=== PATIENT | female | born 1950 | race Caucasian/White ===

== ENCOUNTER 2024-09-21 15:43 | Emergency (ER) | payer MEDICARE, MEDICAID, SELFPAY ==
--- NOTE | ~2024-09-21 | XR_ITS ---
EXAMINATION: XR CHEST CLINICAL INFORMATION: cough COMPARISON: Chest 05/15/2013 report. TECHNIQUE: 2 views of the chest were obtained. FINDINGS: The lungs are well-expanded and clear acute process. There is platelike atelectasis left lung base. Heart size and pulmonary vascularity is normal. No gross bony abnormality seen. XR/XR chest 2V IMPRESSION: Platelike atelectasis left lung base. Electronically signed by: Aryan Cherry MD 09/21/2024 04:47 PM EST
[2024-09-21 15:50] VITALS: BP 150/85; PULSE 80; O2SAT 96; BMI 65.4
--- NOTE | 2024-09-21 15:54 | ED.PSYCH ---
HPI - Psych General Chief Complaint: Psychiatric Symptoms Stated Complaint: Sec 12 Time Seen by Provider: 09/21/24 15:52 Source: EMS Mode of arrival: EMS Limitations: other History of Present Illness HPI Narrative: 74-year-old female coming from [facility]. she has past medical history per the records of bipolar disorder she has been noncompliant with medications per EMS depression asthma GERD chronic kidney disease CHF on torsemide atrial fibrillation pulmonary hypertension borderline personality disorder hyperthyroidism. Patient is on a section 12 for agitation during this at staff. Patient is calm and cooperative here I have no previous visits from her to our hospital the patient denies chest pain cough fever she states she has been seen at another hospital and she was concerned she had pneumonia diagnosed with bronchitis she continues to have cough MD complaint: feels depressed and other Related Data Allergies Allergy/AdvReac Type Severity Reaction Status Date / Time latex [LATEX] Allergy Unknown RASH Verified 09/21/24 15:50 monosodium glutamate Allergy Unknown BREATHING Verified 09/21/24 15:50 DIFFICULTIES/RASH prednisone [PREDNISONE] Allergy Unknown RASH/HYPER Verified 09/21/24 15:50 ACTIVITY Review of Systems Review of Systems: Review of systems: General: Patient denies any fever chills recent illness or falls Musculoskeletal: Denies back pain or body aches or other injuries HEENT: denies headache, runny nose, ear pain Respiratory: cough denies shortness of breath, Cardiovascular: no chest pain or palpitations : denies dysuria, frequency Abdomen: no nausea vomiting denies abdominal pain Extremities: no swelling, no pain Skin: no diaphoresis Yes all other systems are reviewed and are negative PMFSH Social History Social History Advance Directives: No Advance Directives Information Provided: Yes Do you have a plan to hurt others: No Plan Physical Exam Vital Signs: Vital Signs: Last Vital Signs Temp 98.3 F 09/21/24 16:00 Pulse 71 09/21/24 16:00 Resp 18 09/21/24 16:00 BP 141/63 H 09/21/24 16:00 Pulse Ox 99 09/21/24 16:00 O2 Del Method Room Air 09/21/24 16:00 BMI result Body Mass Index 65.4 General: Well-appearing well-nourished in no signs of distress HEENT: Normocephalic atraumatic Neck: No signs of JVD, no masses no tenderness or lymphadenopathy Cardiovascular: Regular rate and rhythm Respiratory: Clear to auscultation bilaterally Abdomen: Soft nontender no masses Extremities: Normal pedal pulses minimal bilateral edema Skin: Dry warm no rashes Back: No tenderness full ROM Course Reevaluation(s) Reevaluation #1: labs and x-ray are all normal patient is medically cleared for behavioral health Time: 17:26 Medical Decision Making Medical Decision Making [facility] Narrative: I will check labs x-ray including BNP COVID flu RSV to hopefully clear the patient for psychiatric evaluation. Differential Diagnosis Differential Diagnoses: The differential diagnosis associated with the presentation includes acute psychosis pneumonia CHF medication noncompliance Admission/Observation Consideration of admission/observation: Escalation of care including admission/observation considered Consult Healthcare Provider Management of the patient was discussed with: Behavioral Health Provider Lab Data 09/21/24 16:18 09/21/24 16:18 Labs: Lab Results 09/21/24 09/21/24 Range/Units 16:18 16:52 WBC 7.2 (4.8-10.8) X10*3/uL RBC 4.33 (4.20-5.50) X10*6/uL Hgb 13.3 (12.0-16.0) g/dl Hct 41.0 (37.0-47.0) % MCV 94.7 (80.0-98.0) fL MCH 30.7 (27.0-33.0) pg MCHC 32.4 (31.0-35.0) g/dl RDW 13.0 (11.0-16.0) % Plt Count 204 (160-400) X10*3/uL MPV 10.1 (9.4-12.3) fL Immature Gran % (Auto) 1.0 H (0.0-0.4) % Neut % (Auto) 67.5 (45-73) % Lymph % (Auto) 19.6 L (20-40) % [place] % (Auto) 11.2 H (2-11) % Eos % (Auto) 0.0 (0-4) % Baso % (Auto) 0.7 (0-2) % Lymph # (Auto) 1.4 (1.2-4.9) X10*3/uL [place] # (Auto) 0.8 (0.1-1.2) X10*3/uL Eos # (Auto) 0.0 (0.0-0.4) X10*3/uL Baso # (Auto) 0.1 (0.0-0.2) X10*3/uL Abs Immat Gran (auto) 0.07 H (0.00-0.03) X10*3/uL Absolute Neuts (auto) 4.9 (2.0-8.3) x10*3/uL Absolute Nucleated RBC 0.000 (0.0-0.012) X10*3/uL Nucleated RBC % (auto) 0.0 (0.0-0.2) /100WBC Sodium 141 (135-145) mmol/L Potassium 3.3 (3.3-5.1) mmol/L Chloride 107 (96-108) mmol/L Carbon Dioxide 24 (22-29) mmol/L Anion Gap 13 (12-20) BUN 10 (9-16) mg/dL Creatinine 0.72 (0.5-1.4) mg/dL Estim Creat Clear Calc 102.0 Estimated GFR > 60 Random Glucose 88 (60-115) mg/dL Calcium 8.9 (8.4-10.2) mg/dL Magnesium 2.2 (1.6-2.6) mg/dL Total Bilirubin 0.6 (0.0-1.0) mg/dL Direct Bilirubin 0.2 (0.0-0.5) mg/dL AST 25 (5-31) U/L ALT 15 (0-31) U/L Alkaline Phosphatase 74 (39-117) U/L B-Natriuretic Peptide 108 H (<100) pg/mL Total Protein 7.2 (6.5-8.0) g/dL Albumin 3.6 (3.5-5.0) g/dL Lipase 20 (8-78) U/L Hold Yellow Top See Note Salicylates < 5.0 L (15-30) mg/dL Acetaminophen 3 (<30) mcg/mL Ethyl Alcohol < 10 mg/dL Influenza Type A (PCR) NEGATIVE (Negative) Influenza Type B (PCR) NEGATIVE (Negative) RSV RNA Qual (PCR) NEGATIVE (Negative) SARS-CoV-2 RNA (RT-PCR) NEGATIVE (Negative) Discharge Plan Discharge Clinical Impression: Acute psychosis, Bipolar disorder Patient Disposition: Still a Patient Print Language: Burkinan
[2024-09-21 16:00] VITALS: BP 141/63; PULSE 71; RESP 18; TEMP 36.8; O2SAT 99
[2024-09-21 16:23] LABS: MANUAL DIFF FLAG NO
[2024-09-21 16:26] LABS: Basophils Absolute Auto 0.1 X10*3/uL (0.0-0.2); Basophils Percent Auto 0.7 % (0-2); Hemoglobin 13.3 g/dl (12.0-16.0); Imm Gran Abs Auto 0.07 X10*3/uL (0.00-0.03); Lymphocytes Absolute Auto 1.4 X10*3/uL (1.2-4.9); Lymphocytes Percent Auto 19.6 % (20-40); Mean Corpuscular HGB Conc 32.4 g/dl (31.0-35.0); Mean Corpuscular Hemoglobin 30.7 pg (27.0-33.0); Mean Corpuscular Volume 94.7 fL (80.0-98.0); Mean Platelet Volume 10.1 fL (9.4-12.3); Monocytes Absolute Auto 0.8 X10*3/uL (0.1-1.2); Monocytes Percent Auto 11.2 % (2-11); Neutrophils Absolute Auto 4.9 x10*3/uL (2.0-8.3); Neutrophils Percent Auto 67.5 % (45-73); Platelet Count 204 X10*3/uL (160-400); Red Blood Count 4.33 X10*6/uL (4.20-5.50); White Blood Count 7.2 X10*3/uL (4.8-10.8)
[2024-09-21 16:48] LABS: Acetaminophen LAB 3 mcg/mL (<30); Salicylate < 5.0 mg/dL (15-30)
[2024-09-21 16:49] LABS: Alanine Aminotransferase 15 U/L (0-31); Albumin Level 3.6 g/dL (3.5-5.0); Alkaline Phosphatase 74 U/L (39-117); Anion Gap 13 (12-20); Aspartate Amino Transferase 25 U/L (5-31); Bilirubin Direct 0.2 mg/dL (0.0-0.5); Bilirubin Total 0.6 mg/dL (0.0-1.0); Blood Urea Nitrogen 10 mg/dL (9-16); Calcium 8.9 mg/dL (8.4-10.2); Carbon Dioxide 24 mmol/L (22-29); Chloride 107 mmol/L (96-108); Estimated Glomerular Filt Rate > 60; Ethanol < 10 mg/dL; Glucose Random 88 mg/dL (60-115); Lipase 20 U/L (8-78); Magnesium 2.2 mg/dL (1.6-2.6); Potassium 3.3 mmol/L (3.3-5.1); Sodium 141 mmol/L (135-145); Total Protein 7.2 g/dL (6.5-8.0)
[2024-09-21 17:03] LABS: Influenza A PCR NEGATIVE (Negative); Influenza B PCR NEGATIVE (Negative); Resp Syncy Virus RNA Qual PCR NEGATIVE (Negative); SARS COV2 PCR INHOUSE NEGATIVE (Negative)
[2024-09-21 17:22] LABS: B Type Natriuretic Peptide 108 pg/mL (<100)
--- NOTE | 2024-09-21 18:41 | PC.NURSE ---
pt incontinent of urine - pericare performed. bedding changed. new pads applied. urine obtained/sent to lab.
--- OUTSIDE RECORDS SUMMARY | 2024-09-21 18:53 | XMS_ITS | Continuity of Care Document ---
Author Organization [employer] [facility] Address [address] [address] Phone Care Team Providers Care Mortgage Banker Name Role Phone Margy Page NP Unavailable Unavaila ble Allergies, Adverse Reactions, Alerts Substance Reaction Status Criticality strawberry Hives Active No Information prednisone Active No Information celecoxib Hives Active No Information ZOLPIDEM TARTRATE Active No Informa tion WARNIN allergy(ies) could not be collected because the type is not supported. Please contact the source practice for further details. Medications Medication Instructions Dosage Effective Dates (start - stop) Status Comments omeprazole 20 mg tablet,delayed release take 1 tablet qd [facility] - Active menthol 4 % topical cream apply twice a day to bilateral knees [facility] - Active SE supplied - Dynarub potassium chloride ER 10 mEq capsule,extended release Take 2 capsules (20mEq) by mouth once daily. - Active K 3.1 on ; dose increased from 10 to 20mEq. Breo Ellipta 200 mcg-25 mcg/dose powder for inhalation inhale 1 puff by inhalation route every day at the same time each day 1.00 puff - Active AUTO FILL INHALE R MONTHLY losartan 25 mg tablet take 1 tablet by oral route every day 25 MG - Active Ozempic 2 mg/dose (8 mg/3 mL) subcutaneous pen injector Inject 2mg SQ once weekly on the same day. - Active 09/05/23: Dose increase gabapentin 100 mg capsule Take 2 capsules by mouth 3 times daily. - Active Xarelto 15 mg tablet Take 1 tablet daily by mouth with dinner. - Active hydrocortisone 1 % topical cream apply by topical route once daily to lower legs. - Active levothyroxine 75 mcg tablet take 1 tablet PO daily - Active quetiapine ER 150 mg tablet,extended release 24 hr take 2 (two) tablets PO at bedtime with food or a snack - Active QTc 08/05/22 EKG 450 mS amlodipine 2.5 mg tablet take 1 tablet by oral route every day - Active senna 8.6 mg tablet take 2 tablet by oral route every day 17.2 MG - Active [place] [facility] [place] acetaminophen 325 mg tablet PRN FOR BREAKTHROUGH PAIN take 2 tablet by oral route ONCE DAILY; DO NOT EXCEED 8 TABS IN 24 HRS - Active PRN med card; TAKES 6 TABS SCHEDULED DAILY - CAN HAVE 2 ADDITIONAL TABS PRN BREAKTHROUGH DAILY atorvastatin 40 mg tablet take 1 tablet by oral route every day 40 MG - Active per pre enrollment bisacodyl 5 mg tablet,delayed release PRN MED CARD - take 1 tablet by oral route every day as needed for constipation - Active PLS PROVIDE PRN MED CARD THANKS metoprolol tartrate 25 mg tablet take 1 tablet by oral route 2 times every day - Active torsemide 20 mg tablet take 1 tablet by oral route every day - Active DOSE DECREASE BY [facility] 01/2022 Advance Directives Directive Yes / No Effective Date File Name No Information Encounters Encounter Description Practice Location Reason(s) For Visit Diagnoses Date Provider [facility], [facility], [place], [place], [id number], [place] tel:[phone] [facility] No Information 4 Camilo Ji. 1 [facility], [place], [place], [id number], [place]. tel:[phone] [facility], [address] [address], [place], [place], [id number], [place] tel:[phone] [place] Annual (chief complaint) Generalized anxiety disorderBorderline personality disorderBipolar affective disorder in remissionHypertensive heart and kidney disease with heart failure and chronic kidney diseaseChronic heart failure with preserved ejection fractionPulmonary hypertensionCoronary artery disease involving mcgrath coronary artery of mcgrath heart without angina pectorisParoxysmal atrial fibrillationHyperlipi demia, unspecified hyperlipidemia typeSecondary hypercoagulable stateAcquired hypothyroidism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BMI 60.0-69.9, adultGastroesophageal reflux disease without esophagitisChronic kidney disease, stage 2 (mild)Late effect of traumatic injury to brainMild cognitive impairmentCentrilobul ar emphysema 4 Bhagavatula Ujjwala. [address], [place], [place], [id number], [place]. tel:[phone] [facility], [facility] [address] [place] [address], [id number], [place] tel:[phone] [facility] F/U (chief complaint) DebilityStage 3a chronic kidney disease 4 Bhagajuliana Ujjwala. [address], [place], [place], [id number], [place]. tel:[phone] [facility], [address] [facility] [place], [place], [id number], [place] tel:[phone] [facility] Encounter for nutritional assessmentClass 3 severe obesity due to excess calories with serious comorbidity and body mass index (BMI) of 60.0 to 69.9 in adultBody mass index [BMI] 60.0-69.9, adult November- 4 Normile Stephanie. [address] [place], [place], [id number], [place]. tel:[phone] [facility], [address] [facility], [place], [place], [id number], [place] tel:[phone] [facility] Follow-up (chief complaint) Debility 4 Bhagavatula Ujjwala. [address] [place], [place], [id number], [place]. tel:[phone] [facility], [address] [facility] [address], [place], [place], [id number], [place] tel:[phone] [facility] Follow-up (chief complaint) Nausea 4 Bhagavatula Ujjwala. [address] [place], [place], [id number], [place]. tel:[phone] [facility], [address] [facility], [place], [place], [id number], [place] tel:[phone] [facility] Follow-up (chief complaint) HypokalemiaPrimary generalized (osteo)arthritis 4 Pitsiladis Ceci. [address] [place], [place], [id number], [place]. tel:[phone] [facility], [address] [facility], [place], [place], [id number], [place] tel:[phone] [facility] Follow-up (chief complaint) Lymphedema due to venous insufficiencyVenous insufficiency (chronic) (peripheral)Primary generalized (osteo)arthritis 4 Bhagavatula Ujjwala. [address] [place], [place], [id number], [place]. tel:[phone] [facility], [address] [facility], [place], [place], [id number], [place] tel:[phone] [facility] Follow-up (chief complaint) Lymphedema due to venous insufficiencyVenous insufficiency (chronic) (peripheral)Other emphysema Oct-2 - 4 Bhagavatula Ujjwala. [address] [place], [place], [id number], [place]. tel:[phone] [facility], [address] [facility] [address], [place], [place], [id number], [place] tel:[phone] [facility] Follow-up (chief complaint) Lymphedema due to venous insufficiencyVenous insufficiency (chronic) (peripheral)Primary generalized (osteo)arthritisCentr ilobular emphysema Apr- 4 Bhagavatula Ujjwala. [address] [place], [place], [id number], [place]. tel:[phone] [facility], [address] [facility] [address] [place] [address], [id number], [place] tel:[phone] [facility] Follow-up (chief complaint) Lymphedema, not elsewhere classifiedVenous insufficiency (chronic) (peripheral)Primary generalized (osteo)arthritis Oct- 4 Bhagavatula Ujjwala. [address] [place], [id number], [place]. tel:[phone] [facility], [address] [facility] [address] [place] [address], [id number], [place] tel:[phone] [facility] Follow-up (chief complaint) Lymphedema, not elsewhere classifiedVenous insufficiency (chronic) (peripheral)Primary generalized (osteo)arthritis Oct- 4 Bhagavatula Ujjwala. [address] [place], [id number], [place]. tel:[phone] [facility], [address] [facility] [address] [place] [address], [id number], [place] tel:[phone] [facility] Follow-up (chief complaint) Lymphedema due to venous insufficiencyVenous insufficiency (chronic) (peripheral) Oct-0 4 Bhagavatula Ujjwala. [address] [place], [place], [id number], [place]. tel:[phone] [facility], [address] [facility] [address] [place] [address], [id number], [place] tel:[phone] [facility] Follow-up (chief complaint) Generalized anxiety disorderLymphedema due to venous insufficiencyVenous insufficiency (chronic) (peripheral) Sep-2 4 Bhagavatula Ujjwala. [address] [place], [id number], [place]. tel:[phone] [facility], [address] [facility], [place], [place], [id number], [place] tel:[phone] [facility] Follow-up (chief complaint) Lymphedema due to venous insufficiencyVenous insufficiency (chronic) (peripheral)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BMI 60.0-69.9, adult Mar-2 0 4 Juan F Reyezwala. [address] [facility] [place], [id number], [place]. tel:[phone] [facility], [address] [facility], [place], [place], [id number], [place] tel:[phone] [facility] Admit (chief complaint) Primary generalized (osteo)arthritisLymph edema due to venous insufficiency Mar-1 4 Juan F Reyezwala. [address] [facility] [address], [place], [place], [id number], [place]. tel:[phone] [facility], [address] [facility], [place], [place], [id number], [place] tel:[phone] [place] Difficulty in walking, not elsewhere classified Mar-0 4 Baron Jl. [address] [facility], [place], [address]. tel:[phone] [facility], [address] [facility], [place], [place], [id number], [place] tel:[phone] [place] Muscle weakness (generalized)Need for assistance with personal care Mar-0 4 Naila Munoz. [address] [facility] [place], [place], [id number]. tel:[phone] [facility], [address] [facility], [place], [place], [id number], [place] tel:[phone] [place] Alteration in performance of activities of daily livingDifficulty in walking, not elsewhere classifiedImpaired cognitive abilityMuscle weakness (generalized) Mar-0 - 4 Naila Munoz. [address] [place], [place], [id number]. tel:[phone] [facility], [address] [facility], [place], [place], [id number], [place] tel:[phone] [place] Acute Visit (chief complaint) Primary generalized (osteo)arthritisAtria l fibrillation, unspecified typeCoronary artery disease involving mcgrath coronary artery of mcgrath heart, unspecified whether angina present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BMI 60.0-69.9, adult Mar-0 4 Pitsiladis Ceci. [address], [place], [place], [id number], [place]. tel:[phone] [facility], [address] [facility], [place], [place], [id number], [place] tel:[phone] [facility] [place] No Information Feb-2 4 Pitsiladis Ceci. [address], [place], [place], [id number], [place]. tel:[phone] [facility], [address] [facility], [place], [place], [id number], [place] tel:[phone] [place] Difficulty in walking, not elsewhere classifiedAlteration in performance of activities of daily livingMild cognitive impairment, so statedOther lack of coordination b-2 4 Naila Munoz. [address] [place], [place], [id number]. tel:[phone] [facility], [address] [facility], [place], [place], [id number], [place] tel:[phone] [place] Follow-up (chief complaint) BMI 60.0-69.9, adultHistory of UTI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 Feb-1 4 Pitsiladis Ceci. [address], [place], [place], [id number], [place]. tel:[phone] [facility], [address] [facility], [place], [place], [id number], [place] tel:[phone] [place] Encounter for rehabilitation evaluation 4 Naila Munoz. [address] [place], [place], [id number]. tel:[phone] [facility], [address], [place], [place], [id number], [place] tel:[phone] [place] Alteration in performance of activities of daily livingDifficulty in walking, not elsewhere classifiedOther lack of coordination 0 4 Naila Munoz. [address] [place], [place], [id number]. tel:[phone] [facility], [address] [facility], [place], [place], [id number], [place] tel:[phone] [place] Alteration in performance of activities of daily livingDifficulty in walking, not elsewhere classifiedMild cognitive impairment, so statedOther lack of coordination 0 4 Naila Munoz. [address] [place], [place], [id number]. tel:[phone] [facility], [address] [facility], [place], [place], [id number], [place] tel:[phone] [place] Alteration in performance of activities of daily livingDifficulty in walking, not elsewhere classifiedOther lack of coordination 4 Naila Munoz. [address] [place], [place], [id number]. tel:[phone] [facility], [address] [facility], [place], [place], [id number], [place] tel:[phone] [place] Encounter for rehabilitation evaluation 4 Baron Parikh. [address], [place], [address]. tel:[phone] [facility], [address] [facility], [place], [place], [id number], [place] tel:[phone] [place] Difficulty in walking, not elsewhere classifiedAlteration in performance of activities of daily livingOther lack of coordination 4 Naila Martinezah Beth. [address] [place], [place], [id number]. tel:[phone] [facility], [address] [facility] [address], [place], [place], [id number], [place] tel:[phone] [place] Difficulty in walking, not elsewhere classifiedAlteration in performance of activities of daily livingOther chronic pain 4 Naila Martinezah Beth. [address] [place], [place], [id number]. tel:[phone] [facility], [address] [facility], [place], [place], [id number], [place] tel:[phone] [place] Difficulty in walking, not elsewhere classifiedAlteration in performance of activities of daily livingEncounter for rehabilitation evaluation 4 Naila Martinezah Beth. [address] [place], [place], [id number]. tel:[phone] [facility], [address] [facility] [address], [place], [place], [id number], [place] tel:[phone] [facility] Evaluation (chief complaint) 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BMI 60.0-69.9, adultChronic obstructive pulmonary disease, unspecified COPD typeChronic heart failure with preserved ejection fractionBipolar affective disorder, remission status unspecifiedBorderline personality disorder 4 Margot Ornelas. [address], [place], [place], [id number], [place]. tel:[phone] [facility], [address] [facility], [place], [place], [id number], [place] tel:[phone] [facility] [place] No Information 4 Devante Almanza. [address], [place], [place], [id number], [place]. tel:[phone] [facility], [address] [facility], [place], [place], [id number], [place] tel:[phone] [place] Difficulty in walking, not elsewhere classifiedAlteration in performance of activities of daily livingOther lack of coordination 4 Naila Tenorio Beth. [address], [place], [place], [id number]. tel:[phone] [facility], [address] [facility] [address], [place], [place], [id number], [place] tel:[phone] [place] Difficulty in walking, not elsewhere classifiedMild cognitive impairment, so statedNeed for assistance with personal careOther lack of coordination 4 Hetalbenjamin Lauren MartinezShannan. [address] [place], [place], [id number]. tel:[phone] [facility], [address] [facility], [place], [place], [id number], [place] tel:[phone] [place] Difficulty in walking, not elsewhere classifiedOther lack of coordinationPrimary generalized (osteo)arthritisNeed for assistance with personal care 4 Naila Prettyn Shannan. [address] [place], [place], [id number]. tel:[phone] [facility], [address] [facility], [place], [place], [id number], [place] tel:[phone] [place] Alteration in performance of activities of daily livingDifficulty in walking, not elsewhere classifiedUnsteadines s on feetOther chronic pain 4 Naila Tenorio Beth. [address] [place], [place], [address]. tel:[phone] [facility], [address] [facility], [id number], [place] tel:[phone] [place] Alteration in performance of activities of daily livingDifficulty in walking, not elsewhere classifiedImpaired cognitive abilityOther chronic pain 3 Naila Aguilar Shannan. [address] [place], [place], [id number]. tel:[phone] [facility], [address], [place], [place], [id number], [place] tel:[phone] [place] Difficulty in walking, not elsewhere classified 3 Baron Jl. [address] [facility] [address], [place], [address]. tel:[phone] [facility], [address], [place], [place], [id number], [place] tel:[phone] [place] Difficulty in walking, not elsewhere classifiedAlteration in performance of activities of daily livingOther chronic painUnsteadiness on feet 3 Naila Martinezah Beth. [address] [facility] [address] [place], [place], [id number]. tel:[phone] [facility], [address], [place], [place], [id number], [place] tel:[phone] [place] Encounter for nutritional assessmentAbnormal weight gainClass 3 severe obesity with serious comorbidity and body mass index (BMI) of 60.0 to 69.9 in adult, unspecified obesity typeBody mass index [BMI] 60.0-69.9, adultCounseling NOS 3 Normile Stephanie. [address], [place], [place], [id number], [place]. tel:[phone] [facility], [address], [place], [place], [id number], [place] tel:[phone] [place] Lymphedema, not elsewhere classified 3 Pitsiladis Ceci. [address], [place], [place], [id number], [place]. tel:[phone] [facility], [address], [place], [place], [id number], [place] tel:[phone] [place] Follow-up (chief complaint) Cellulitis of lower extremity, unspecified lateralityLymphedema due to venous insufficiencyVenous insufficiency (chronic) (peripheral) Jun- 3 Pitsiladis Ceci. [address] [place], [place], [id number], [place]. tel:[phone] [facility], [address] [facility] [address], [place], [place], [id number], [place] tel:[phone] [place] Cellulitis of lower extremity, unspecified lateralityLymphedema due to venous insufficiencyVenous insufficiency (chronic) (peripheral) Jun- 3 Pitsiladis Ceci. [address], [place], [place], [id number], [place]. tel:[phone] [facility], [address] [facility], [place], [place], [id number], [place] tel:[phone] [place] Difficulty in walking, not elsewhere classifiedAlteration in performance of activities of daily livingMild cognitive impairment, so statedMuscle weakness (generalized) Jun- 3 Naila Munoz. [address] [place], [place], [address]. tel:[phone] [facility], [address] [facility], [place], [place], [id number], [place] tel:[phone] [place] No Information Jun- 3 Pitsiladis Ceci. [address], [place], [place], [id number], [place]. tel:[phone] [facility], [address] [facility] [address], [place], [place], [id number], [place] tel:[phone] Lymphedema due to venous insufficiencyVenous insufficiency (chronic) (peripheral) Jun- 3 Camilo Ji. [address] [facility] , [place], [place], [id number], [place]. tel:[phone] [facility], [address] [facility] [facility], [place], [place], [id number], tel:[phone] [place] Semi-Annual (chief complaint) Generalized anxiety disorderBorderline personality disorderBipolar affective disorder, remission status unspecifiedHypertensi ve heart and kidney disease with heart failure and chronic kidney diseaseChronic heart failure with preserved ejection fractionPulmonary hypertensionCoronary artery disease involving mcgrath coronary artery of mcgrath heart, unspecified whether angina presentAtrial fibrillation, unspecified typeHyperlipidemia, unspecified hyperlipidemia typeSecondary hypercoagulable stateHypothyroidism, unspecified typeBMI 60.0-69.9, adultGastroesophageal reflux disease without esophagitisStage 3a chronic kidney diseaseLate effect of traumatic injury to brainChronic obstructive pulmonary disease, unspecified COPD type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Cellul itis of lower extremity, unspecified laterality 3 Pitsiladis Ceci. [address], [place], [place], [id number], [place]. tel:[phone] [facility], [facility], [place], [place], [id number], [place] tel:[phone] [place] Alteration in performance of activities of daily livingDifficulty in walking, not elsewhere classifiedMild cognitive impairment, so statedOther chronic pain 3 Naila Munoz. [address] [place], [place], [id number]. tel:[phone] [facility], [address] [facility] [address], [place], [place], [id number], [place] tel:[phone] [place] Alteration in performance of activities of daily livingDifficulty in walking, not elsewhere classifiedMild cognitive impairment, so statedPrimary generalized (osteo)arthritisOther lack of coordination 3 Naila Munzo[address] [place], [place], [id number]. tel:[phone] [facility], [address] [facility] [address], [place], [place], [id number], [place] tel:[phone] [place] Acute Visit (chief complaint) Cellulitis of lower extremity, unspecified laterality 3 Pitsiladis Ceci. [address], [place], [place], [id number], [place]. tel:[phone] [facility], [address], [place], [place], [id number], [place] tel:[phone] [place] Encounter for rehabilitation evaluation 3 Baron Jl. [address], [place], [address]. tel:[phone] [facility], [address] [facility] [address], [place], [place], [id number], [place] tel:[phone] [place] Encounter for rehabilitation evaluation 3 Naila Munoz. [address] [facility] [place], [place], [id number]. tel:[phone] [facility], [address], [place], [place], [id number], [place] tel:[phone] [place] Cellulitis of left lower extremity 3 Pitsiladis Ceci. [address], [place], [place], [id number], [place]. tel:[phone] [facility], [address] [facility] [address], [place], [place], [id number], [place] tel:[phone] [place] No Information 3 Bhagadanyula Neoa. [address], [place], [place], [id number], [place]. tel:[phone] [facility], [address], [place], [place], [id number], [place] tel:[phone] [place] Encounter for rehabilitation evaluation 3 Baron Jl. [address], [place], [address]. tel:[phone] [facility], [address], [place], [place], [id number], [place] tel:[phone] [place] No Information 0 3 Obdulio Noland. [address] [place], [place], [id number], [place]. tel:[phone] [facility], [address], [place], [place], [id number], [place] tel:[phone] [place] Carpal tunnel syndrome of right wrist Nov-0 3 Austin Dutch. [address] [place], [place], [id number], [place]. tel:[phone] [facility], [address], [place], [place], [id number], [place] tel:[phone] [place] Carpal tunnel syndrome of right wrist May-0 3 Austin Dutch. [address], [place], [id number], [place]. 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 [address], [place], [id number], [place]. tel:[phone] [facility], [address] [facility] [address] [facility], [place], [place], [id number], [place] tel:[phone] [place] No Information 3 Juan F Larsona. [address], [place], [id number], [place]. 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 [address] [place], [place], [id number], [place]. tel:[phone] [facility], [address] [facility] [address] [place] [address], [id number], [place] tel:[phone] [place] OV (chief complaint) Cold intoleranceJoint pain in fingers of right handExcessive cerumen in left ear canalFungal dermatitisBMI 60.0-69.9, adult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Histor y of postmenopausal bleeding Sep-1 3 Austin Dutch. [address], [place], [id number], [place]. tel:[phone] [facility], [address] [facility] [address] [facility], [place], [place], [id number], [place] tel:[phone] [place] No Information Sep-0 3 Correa Rut. [address], [place], [id number], [place]. tel:[phone] [facility], [address] [facility], [place], [place], [id number], [place] tel:[phone] [place] Lymphedema due to venous insufficiencyVenous insufficiency (chronic) (peripheral) Sep-0 3 Austin Dutch. [address] [place], [place], [id number], [place]. tel:[phone] [facility], [address] [facility] [address] [facility], [place], [place], [id number], [place] tel:[phone] [place] No Information Sep-0 3 Austin Dutch. [address], [place], [id number], [place]. tel:[phone] [facility], [address] [place] [address], [id number], [place] tel:[phone] [place] Hypertensive heart and kidney disease with heart failure and chronic kidney disease Miguel Angel- 3 Cysz Rajwinder. [address], [place], [id number], [place]. tel:[phone] [facility], [address], [place], [place], [id number], [place] tel:[phone] [place] Off site post SNF visit (chief complaint) Hypertensive heart and kidney disease with heart failure and chronic kidney diseaseChronic heart failure with preserved ejection fractionStage 3a chronic kidney diseaseHistory of cellulitisBorderline personality disorderNormocytic anemiaHistory of evacuation of hematoma 3 Cysz Rajwinder. [address] [facility] [place], [id number], [place]. tel:[phone] [facility], [address], [place], [place], [id number], [place] tel:[phone] [place] No Information 3 Cysz Rajwinder. [address] [facility] [address], [place], [place], [id number], [place]. tel:[phone] [facility], [address], [place], [place], [id number], [place] tel:[phone] [place] Encounter for rehabilitation evaluation 3 Naila Munoz. 101 [facility] [address] [place], [place], [id number]. tel:[phone] [facility], [address], [place], [place], [id number], [place] tel:[phone] [place] Contusion of right lower leg, initial encounter 3 Cysz Rajwinder. [address] [facility] [place], [id number], [place]. tel:[phone] [facility], [address], [place], [place], [id number], [place] tel:[phone] [place] Muscle weakness (generalized) 3 Baron Jl. [address] [facility] [address], [place], [address]. tel:[phone] [facility], [address], [place], [place], [id number], [place] tel:[phone] [place] Encounter for nutritional assessmentOther obesityMorbid (severe) obesity due to excess calories 3 Normile Stephanie. [address], [place], [id number], [place]. tel:[phone] [facility], [facility], [place], [place], [id number], tel:[phone] [place] Semi-Annual (chief complaint)Pa rt 2 (chief complaint) Injury of right knee, initial encounterHistory of cellulitisNonadherenc e to medical treatmentGeneralized anxiety disorderBorderline personality disorderBipolar disorder, current episode mixed, moderateHypertensive heart and kidney disease with heart failure and chronic kidney diseaseChronic heart failure with preserved ejection fractionPulmonary hypertensionCoronary artery disease involving mcgrath coronary artery of mcgrath heart without angina pectorisParoxysmal atrial fibrillationSecondary hypercoagulable stateHyperlipidemia, unspecified hyperlipidemia typeHypothyroidism, unspecified type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BMI 60.0-69.9, adultStage 3a chronic kidney diseaseHistory of postmenopausal bleedingLate effect of traumatic injury to brainChronic obstructive pulmonary disease, unspecified COPD typeLymphedema due to venous insufficiencyVenous insufficiency (chronic) (peripheral) 3 Cysz Rajwinder. [address] [facility] [place], [id number], [place]. tel:[phone] [facility], [address] [address], [place], [place], [id number], [place] tel:[phone] [place] Muscle weakness (generalized) 3 Puffer Lauren Munoz. [address] [facility] [address], [place], [place], [id number]. tel:[phone] [facility], [facility], [place], [place], [id number], [place] tel:[phone] [place] Muscle weakness (generalized) 3 Puffer Lauren Tenorio Beth. [address] [place], [place], [id number]. tel:[phone] [facility], [address] [facility] [facility], [place], [place], [id number], [place] tel:[phone] [place] Muscle weakness (generalized) 3 Naila Munoz. [address] [place], [place], [id number]. tel:[phone] [facility], [address] [facility] [facility], [place], [place], [id number], [place] tel:[phone] [place] Muscle weakness (generalized) 3 Pubenjamin Tenorio Beth. [address] [facility] [address] [place], [place], [id number]. tel:[phone] [facility], [address] [facility] [address] [facility], [place], [place], [id number], [place] tel:[phone] [place] Muscle weakness (generalized) 3 Pubenjamin Tenorio Beth. [address] [facility] [address] [place], [place], [id number]. tel:[phone] [facility], [address] [facility] [address] [facility], [place], [place], [id number], [place] tel:[phone] [place] Muscle weakness (generalized) 0 3 Naila Tenorio Beth. [address] [facility] [address] [place], [place], [id number]. tel:[phone] [facility], [address] [facility] [address] [facility], [place], [place], [id number], [place] tel:[phone] [place] Difficulty in walking, not elsewhere classified Apr-2 3 Baron Jl. [address], [place], [address]. tel:[phone] [facility], [address] [facility] [address], [place], [place], [id number], [place] tel:[phone] [place] Alteration in performance of activities of daily livingDifficulty in walking, not elsewhere classifiedMild cognitive impairment, so stated Apr-2 3 Naila Munoz. [address] [place], [place], [address]. tel:[phone] [facility], [address] [facility] [address] [facility], [place], [place], [id number], [place] tel:[phone] [place] Difficulty in walking, not elsewhere classifiedMuscle weakness (generalized) Apr-2 3 Baron Jl. [address], [place], [address]. tel:[phone] [facility], [address] [facility] [address] [facility], [place], [place], [id number], [place] tel:[phone] [place] Muscle weakness (generalized) Apr-2 3 Naila Munoz. [address] [facility] [address] [place], [place], [address]. tel:[phone] [facility], [address] [facility] [facility], [place], [place], [id number], [place] tel:[phone] [place] Muscle weakness (generalized)Difficul ty in walking, not elsewhere classified Apr-2 3 Baron Jl. [address], [place], [address]. tel:[phone] [facility], [address] [facility] [address] [facility], [place], [place], [id number], [place] tel:[phone] [place] Alteration in performance of activities of daily livingDifficulty in walking, not elsewhere classified Apr-2 0- 3 Naila Cisnerosh. [address] [place], [place], [id number]. tel:[phone] [facility], [address] [facility] [facility], [place], [place], [id number], [place] tel:[phone] [place] Muscle weakness (generalized) Apr-2 0- 3 Naila Cisnerosh. [address] [place], [place], [id number]. tel:[phone] [facility], [address], [place], [place], [address], [place] tel:[phone] [place] Muscle weakness (generalized) Apr- 3 Naila Munoz. [address] [place], [place], [address]. tel:[phone] [facility], [address], [place], [place], [id number], [place] tel:[phone] [place] Muscle weakness (generalized)Other abnormalities of gait and mobility Apr- 3 Baron Jl. [address], [place], [address]. tel:[phone] [facility], [address], [place], [place], [id number], [place] tel:[phone] [place] Muscle weakness (generalized) Apr- 3 Naila Munoz. [address] [place], [place], [address]. tel:[phone] [facility], [address], [place], [place], [id number], [place] tel:[phone] [place] Muscle weakness (generalized)Other abnormalities of gait and mobility Apr- 3 Baron Jl. [address], [place], [address]. tel:[phone] [facility], [address], [place], [place], [id number], [place] tel:[phone] [place] Muscle weakness (generalized) Apr- 3 Naila Munoz. [address] [place], [place], [address]. tel:[phone] [facility], [address], [place], [place], [id number], [place] tel:[phone] [place] Muscle weakness (generalized)Other abnormalities of gait and mobility Apr-1 0-202 3 Baron Jl. [address], [place], [address]. tel:[phone] [facility], [address] [facility] [address] [facility], [place], [place], [id number], [place] tel:[phone] [place] Muscle weakness (generalized) Apr-0 6-202 3 Naila Munoz. [address] [place], [place], [address]. tel:[phone] [facility], [address] [facility] [address] [facility], [place], [place], [address], [place] tel:[phone] [place] Other abnormalities of gait and mobilityMuscle weakness (generalized) Apr-0 6-202 3 Baron Jl. [address], [place], [address]. tel:[phone] [facility], [address] [facility] [address], [place], [place], [address], [place] tel:[phone] [place] Muscle weakness (generalized) Apr-0 4-202 3 Pubenjamin Munoz. [address] [place], [place], [id number]. tel:[phone] [facility], [address] [facility] [facility], [place], [place], [address], [place] tel:[phone] [place] Other abnormalities of gait and mobilityMuscle weakness (generalized) Apr-0 4-202 3 Baron Jl. [address], [place], [address]. tel:[phone] [facility], [address] [facility] [address] [facility], [place], [place], [id number], [place] tel:[phone] [place] Muscle weakness (generalized)Difficul ty in walking, not elsewhere classifiedOther chronic painEncounter for rehabilitation evaluation Apr-0 3-202 3 Naila Munoz. [address] [place], [place], [address]. tel:[phone] [facility], [address], [place], [place], [address], [place] tel:[phone] [place] Other abnormalities of gait and mobility Mar-3 3 Baron Jl. [address], [place], [address]. tel:[phone] [facility], [address], [place], [place], [id number], [place] tel:[phone] [place] Muscle weakness (generalized) Mar-3 0- 3 Puffer Lauren Tenorio Beth. [address] [place], [place], [address]. tel:[phone] [facility], [address] [facility] [facility], [place], [place], [address], [place] tel:[phone] [place] Muscle weakness (generalized) Mar-2 3 Baron Jl. [address], [place], [address]. tel:[phone] [facility], [address] [facility] [address] [facility], [place], [place], [id number], [place] tel:[phone] [place] Muscle weakness (generalized) Mar-2 3 Puffer Lauren Shannan. [address] [place], [place], [address]. tel:[phone] [facility], [address] [facility] [address] [facility], [place], [place], [address], [place] tel:[phone] [place] Muscle weakness (generalized) Mar-2 3 Puffer Lauren Shannan. [address] [place], [place], [address]. tel:[phone] [facility], [address], [place], [place], [address], [place] tel:[phone] [place] Other abnormalities of gait and mobilityMuscle weakness (generalized) Mar-2 3 Baron Jl. [address], [place], [address]. tel:[phone] [facility], [address], [place], [place], [address], [place] tel:[phone] [place] Muscle weakness (generalized) Sep-2 3 Naila Munoz. [address] [place], [place], [address]. tel:[phone] [facility], [address], [place], [place], [id number], [place] tel:[phone] [place] Muscle weakness (generalized)Other abnormalities of gait and mobility Sep-2 3 Baron Jl. [address], [place], [address]. tel:[phone] [facility], [address], [place], [place], [id number], [place] tel:[phone] [place] Chronic heart failur e with preserved ejection fraction Sep- 3 Sidney Purdy. [address] [place] [place], [address], [place]. tel:[phone] [facility], [address] [facility] [facility], [place], [place], [id number], [place] tel:[phone] [place] Muscle weakness (generalized)Alterati on in performance of activities of daily living Sep- 3 Naila Munoz. [address] [place], [place], [address]. tel:[phone] [facility], [address], [place], [place], [address], [place] tel:[phone] [place] Muscle weakness (generalized) Sep- 3 Baron Jl. [address], [place], [address]. tel:[phone] [facility], [address] [facility] [address], [place], [place], [address], [place] tel:[phone] [place] Muscle weakness (generalized) Sep- 3 Baron Jl. [address], [place], [address]. tel:[phone] [facility], [address] [facility] [facility], [place], [place], [address], [place] tel:[phone] [place] Lymphedema due to venous insufficiencyVenous insufficiency (chronic) (peripheral) Mar-1 3 Cysz Rajwinder. [address] [facility] [place], [address], [place]. tel:[phone] [facility], [address] [facility] [address] [facility], [place], [place], [id number], [place] tel:[phone] [place] Difficulty in walking, not elsewhere classified Mar-1 0- 3 Baron Jl. [address], [place], [address]. tel:[phone] [facility], [address] [facility] [address] [facility], [place], [place], [id number], [place] tel:[phone] [place] Difficulty in walking, not elsewhere classifiedMuscle weakness (generalized)Alterati on in performance of activities of daily living Mar-0 3 Naila Munoz. 101 [facility] [address] [place], [place], [id number]. tel:[phone] [facility], [address] [facility] [address] [facility], [place], [place], [address], [place] tel:[phone] [place] Muscle weakness (generalized) Mar-0 3 Baron Jl. [address], [place], [address]. tel:[phone] [facility], [address] [facility] [address] [facility], [place], [place], [id number], [place] tel:[phone] [place] Muscle weakness (generalized) Mar-0 8 3 Baron Jl. [address], [place], [address]. tel:[phone] [facility], [address], [place], [place], [address], [place] tel:[phone] [place] Muscle weakness (generalized) Mar-0 6- 3 Baron Jl. [address] [facility] [address], [place], [address]. tel:[phone] [facility], [address] [facility] [address] [facility], [place], [place], [address], [place] tel:[phone] [place] Muscle weakness (generalized) Mar-0 2- 3 Puffer Lauren Tenorio Beth. [address] [facility] [address] [place], [place], [address]. tel:[phone] [facility], [address] [facility], [place], [place], [address], [place] tel:[phone] [place] Muscle weakness (generalized) b-2 3 Baron Jl. [address] [facility] [address], [place], [address]. tel:[phone] [facility], [address] [facility], [place], [place], [address], [place] tel:[phone] [place] Sensorineural hearin g loss (SNHL) of both earsJoint pain in fingers of right hand Aug- 3 Cysz Rajwinder. [address] [facility] [address], [place], [place], [id number], [place]. tel:[phone] [facility], [address] [facility], [place], [place], [address], [place] tel:[phone] [place] Alteration in performance of activities of daily livingMuscle weakness (generalized) b-2 3 Hetalffer Lauren Tenorio Beth. [address] [facility] [address] [place], [place], [address]. tel:[phone] [facility], [address] [facility] [address] [facility], [place], [place], [id number], [place] tel:[phone] [place] Difficulty in walking, not elsewhere classifiedPrimary generalized (osteo)arthritisMuscl e weakness (generalized) b-2 3 Naila Munoz. [address], [place], [place], [address]. tel:[phone] [facility], [address] [facility], [place], [place], [id number], [place] tel:[phone] [place] Difficulty in walking, not elsewhere classified Aug- 3 Baron Parikh. [address], [place], [address]. tel:[phone] [facility], [address] [facility] [address], [place], [place], [address], [place] tel:[phone] [place] skin concern (chief complaint) 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BMI 60.0-69.9, adultLymphedema due to venous insufficiencyVenous insufficiency (chronic) (peripheral)History of cellulitis Aug- 3 Sidney Purdy. [address], [place], [place], [id number], [place]. tel:[phone] [facility], [address] [facility] [address], [place], [place], [address], [place] tel:[phone] [place] Alteration in performance of activities of daily livingDifficulty in walking, not elsewhere classifiedOther lack of coordination Aug- 3 Naila Munoz. [address] [place], [place], [address]. tel:[phone] [facility], [address] [facility] [facility], [place], [place], [address], [place] tel:[phone] [place] Alteration in performance of activities of daily livingMuscle weakness (generalized) 3 Naila Munoz. [address] [place], [place], [address]. tel:[phone] [facility], [address] [facility] [address], [place], [place], [id number], [place] tel:[phone] [place] Hemiplegia and hemiparesis following unspecified cerebrovascular disease affecting left non-dominant sideMuscle weakness (generalized) b-2 3 Baron Jl. [address], [place], [address]. tel:[phone] [facility], [address] [facility] [address] [facility], [place], [place], [id number], [place] tel:[phone] [place] Alteration in performance of activities of daily living Aug- 3 Naila Munoz. [address] [place], [place], [address]. tel:[phone] [facility], [address] [facility] [address] [facility], [place], [place], [address], [place] tel:[phone] [place] Lymphedema due to venous insufficiencyVenous insufficiency (chronic) (peripheral) Aug- 3 Cysz Rajwinder. [address] [facility] [address], [place], [place], [id number], [place]. tel:[phone] [facility], [address] [facility] [address] [facility], [place], [place], [id number], [place] tel:[phone] [place] Muscle weakness (generalized) Aug- 3 Naila Munoz. [address] [place], [place], [address]. tel:[phone] [facility], [address] [facility] [address] [facility], [place], [place], [id number], [place] tel:[phone] [place] Alteration in performance of activities of daily livingDifficulty in walking, not elsewhere classifiedMuscle weakness (generalized) b- 3 Naila Munoz. [address] [place], [place], [address]. tel:[phone] [facility], [address] [facility] [address] [facility], [place], [place], [id number], [place] tel:[phone] [place] Muscle weakness (generalized) b- 3 Baron Jl. [address], [place], [address]. tel:[phone] [facility], [address], [place], [place], [id number], [place] tel:[phone] [place] Muscle weakness (generalized)Alterati on in performance of activities of daily living Feb-0 3 Naila Munoz. [address] [place], [place], [address]. tel:[phone] [facility], [address] [facility], [place], [place], [id number], [place] tel:[phone] [place] Encounter for genera l adult medical examination w/o abnormal findings Feb-0 3 Cystrisha Purdy. [address] [facility] [address], [place], [place], [id number], [place]. tel:[phone] [facility], [address] [facility] [address] [facility], [place], [place], [id number], [place] tel:[phone] [place] Muscle weakness (generalized)Alterati on in performance of activities of daily living Feb-0 3 Naila Munoz. [address] [facility] [address] [place], [place], [id number]. tel:[phone] [facility], [address] [facility], [place], [place], [id number], [place] tel:[phone] [place] Encounter for nutritional assessmentMorbid (severe) obesity due to excess calories Feb-0 3 Normile Stephanie. [address] [place], [id number], [place]. tel:[phone] [facility], [address] [facility], [place], [place], [id number], [place] tel:[phone] [place] Difficulty in walking, not elsewhere classified Feb-0 3 Baron Jl. [address] [facility] [address], [place], [address]. tel:[phone] [facility], [address] [facility], [place], [place], [id number], [place] tel:[phone] [place] Muscle weakness (generalized) 0 3 Baron Parikh. [address], [place], [address]. tel:[phone] [facility], [address] [facility], [place], [place], [id number], [place] tel:[phone] [place] Alteration in performance of activities of daily livingEncounter for rehabilitation evaluationMuscle weakness (generalized)Other lack of coordination 3 Naila Munoz. [address] [place], [place], [id number]. tel:[phone] [facility], [facility], [place], [place], [id number], [place] tel:[phone] [place] Encounter for rehabilitation evaluationDifficulty in walking, not elsewhere classified 3 Baron Parikh. [address], [place], [address]. tel:[phone] [facility], [facility], [place], [place], [id number], [place] tel:[phone] [place] [facility] (chief complaint) 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BMI 60.0-69.9, adultLymphedema due to venous insufficiencyVenous insufficiency (chronic) (peripheral)Generaliz ed anxiety disorderHypertensive heart and kidney disease with heart failure and chronic kidney diseaseChronic heart failure with preserved ejection fractionAge-related cataract of both eyes, unspecified age-related cataract typeStage 3a chronic kidney disease 3 Cysz Rajwidner. [address] [place], [id number], [place]. tel:[phone] [facility], [address] [facility], [place], [place], [id number], [place] tel:[phone] [place] Muscle weakness (generalized) 3 Naila Cisnerosh. [address] [place], [place], [address]. tel:[phone] [facility], [address], [place], [place], [id number], [place] tel:[phone] [place] Muscle weakness (generalized) 3 Puffer Lauren Munoz. [address] [place], [place], [address]. tel:[phone] [facility], [address], [place], [place], [id number], [place] tel:[phone] [place] Chronic heart failur e with preserved ejection fraction 3 Cysz Rajwinder. [address] [facility] [address], [place], [place], [id number], [place]. tel:[phone] [facility], [address], [place], [place], [id number], [place] tel:[phone] [place] Muscle weakness (generalized) 3 Puffer Lauren Tenorio Beth. [address] [place], [place], [id number]. tel:[phone] [facility], [address], [place], [place], [id number], [place] tel:[phone] [place] Encounter for rehabilitation evaluationAlteration in performance of activities of daily livingDifficulty in walking, not elsewhere classified 2 Pubenjamin Munoz. [address] [place], [place], [id number]. tel:[phone] [facility], [address], [place], [place], [id number], [place] tel:[phone] [place] respiratory symptoms - home visit (chief complaint) Influenza A 2 Cysz Rajwinder. [address], [place], [place], [id number], [place]. tel:[phone] [facility], [address], [place], [place], [id number], [place] tel:[phone] [place] Encounter for weight management Jun- 2 Obdulio Francesca. [address] [facility], [place], [place], [id number], [place]. tel:[phone] [facility], [address] [facility] [address], [place], [place], [id number], [place] tel:[phone] [place] Muscle weakness (generalized) Dec- 2 Puffer Lauren Tenorio Beth. [address] [place], [place], [id number]. tel:[phone] [facility], [facility], [place], [place], [id number], [place] tel:[phone] [place] Encounter for genera l adult medical examination w/o abnormal findings Jun- 2 Cysz Rajwinder. [address] [facility], [place], [place], [id number], [place]. tel:[phone] [facility], [address] [facility], [place], [place], [id number], [place] tel:[phone] [place] Muscle weakness (generalized) 2 Puffer Lauren Shannan. [address] [place], [place], [id number]. tel:[phone] [facility], [address] [facility], [place], [place], [id number], [place] tel:[phone] [place] Muscle weakness (generalized) Jun- 2 Puffer Lauren Shannan. [address] [place], [place], [address]. tel:[phone] [facility], [address] [facility] [address], [place], [place], [id number], [place] tel:[phone] [place] Muscle weakness (generalized) Jun- 2 Puffer Lauren Shannan. [address] [place], [place], [address]. tel:[phone] [facility], [address] [facility] [address], [place], [place], [id number], [place] tel:[phone] [place] Encounter for nutritional assessmentMorbid (severe) obesity due to excess calories 2 Normile Stephanie. [address] [facility] [place], [id number], [place]. tel:[phone] [facility], [address] [facility] [address], [place], [place], [id number], [place] tel:[phone] [place] ÁNGELA (chief complaint) Generalized anxiety disorderBorderline personality disorderBipolar disorder in partial remission, most recent episode unspecified typeHypertensive heart and chronic kidney disease with heart failure and stage 1 through stage 4 chronic kidney disease, or unspecified chronic kidney diseaseChronic heart failure with preserved ejection fractionPulmonary hypertensionCoronary artery disease involving mcgrath coronary artery of mcgrath heart without angina pectorisParoxysmal atrial fibrillationChronic anticoagulationSecond sourav hypercoagulable stateMorbid (severe) obesity with alveolar hypoventilationBMI 60.0-69.9, adultHypothyroidism, unspecified typeVitamin B12 deficiencyGastroesoph ageal reflux disease, unspecified whether esophagitis presentStage 3a chronic kidney diseaseMild cognitive impairmentLate effect of traumatic injury to brainLymphedema due to venous insufficiencyVenous insufficiency (chronic) (peripheral)Chronic obstructive pulmonary disease, unspecified COPD typeEncounter for general adult medical examination w/o abnormal findings 2 Cysz Rajwinder. [address], [place], [place], [id number], [place]. tel:[phone] [facility], [address] [facility], [place], [place], [id number], [place] tel:[phone] [place] Muscle weakness (generalized) 2 Puffer Lauren Shannan. 101 [facility] [address] [place], [place], [address]. tel:[phone] [facility], [address] [facility] [address], [place], [place], [id number], [place] tel:[phone] [place] Difficulty in walking, not elsewhere classifiedAlteration in performance of activities of daily livingOther lack of coordination 0 2 Hetalbenjamin Lauren MartinezShannan. [address] , [place], [place], [address]. tel:[phone] [facility], [address], [place], [place], [id number], [place] tel:[phone] [place] Muscle weakness (generalized) Dec-0 2 Puffer Lauren MartinezShannan. [address] [place], [place], [address]. tel:[phone] [facility], [address] [facility], [place], [place], [address], [place] tel:[phone] [place] Muscle weakness (generalized) 2 Naila Cisnerosh. [address] [place], [place], [address]. tel:[phone] [facility], [address] [facility] [address], [place], [place], [address], [place] tel:[phone] [place] OV (chief complaint) Lymphedema due to venous insufficiencyVenous insufficiency (chronic) (peripheral) 2 Obdulio Noland. [address], [place], [place], [id number], [place]. tel:[phone] [facility], [address], [place], [place], [address], [place] tel:[phone] [place] Alteration in performance of activities of daily livingDifficulty in walking, not elsewhere classifiedOther lack of coordination 2 Hetalbenjamin Lauren Munoz. [address] [place], [place], [address]. tel:[phone] [facility], [address], [place], [place], [id number], [place] tel:[phone] [place] Encounter for rehabilitation evaluationDifficulty in walking, not elsewhere classifiedAlteration in performance of activities of daily living 2 Naila Martinezah Beth. [address] [facility] [place], [place], [address]. tel:[phone] [facility], [address] [facility], [place], [place], [id number], [place] tel:[phone] [place] [facility] visit (chief complaint) Lymphedema due to venous insufficiencyVenous insufficiency (chronic) (peripheral)Nonadhere nce to medical treatment 2 Devante Almanza. [address] [facility] [place], [address], [place]. tel:[phone] [facility], [address] [facility], [place], [place], [address], [place] tel:[phone] [place] OV (chief complaint) Lymphedema due to venous insufficiencyVenous insufficiency (chronic) (peripheral)Pulmonary hypertensionBMI 60.0-69.9, adultMorbid (severe) obesity with alveolar hypoventilationHypoth yroidism, unspecified typeParoxysmal atrial fibrillationSecondary hypercoagulable state 2 Cysz Rajwinder. [address] [place], [address], [place]. tel:[phone] [facility], [facility], [place], [place], [address], [place] tel:[phone] [place] f/u lymphadema (chief complaint) Lymphedema due to venous insufficiencyVenous insufficiency (chronic) (peripheral)Non-press ure chronic ulcer of other part of right lower leg with other specified severity 2 Cysz Rajwinder. [address] [place], [address], [place]. tel:[phone] [facility], [address] [facility], [place], [place], [address], [place] tel:[phone] [place] skin f/u (chief complaint) Non-pressure chronic ulcer of other part of right lower leg with other specified severityLymphedema due to venous insufficiencyVenous insufficiency (chronic) (peripheral) 2 Cysz Rajwinder. [address] [place], [place], [address], [place]. tel:[phone] [facility], [address], [place], [place], [address], [place] tel:[phone] [place] OV (chief complaint) Non-pressure chronic ulcer of other part of right lower leg with other specified severityLymphedema due to venous insufficiencyVenous insufficiency (chronic) (peripheral) 2 Cysz Rajwinder. [address] [place], [address], [place]. tel:[phone] [facility], [address] [facility], [place], [place], [id number], [place] tel:[phone] [place] Lymphedema due to venous insufficiencyNon-pres sure chronic ulcer of left thigh with other specified severity 2 Cyrus Watts. [address] [place], [address], [place]. tel:[phone] [facility], [address] [facility], [place], [place], [address], [place] tel:[phone] [place] [facility] admission (chief complaint) Fungal rash of trunkLymphedema due to venous insufficiencyVenous insufficiency (chronic) (peripheral) 2 Devante Almanza. [address] [place], [address], [place]. tel:[phone] [facility], [address] [facility], [place], [place], [id number], [place] tel:[phone] [place] skin f/u (chief complaint) Lymphedema due to venous insufficiencyVenous insufficiency (chronic) (peripheral)Non-press ure chronic ulcer of other part of right lower leg with other specified severityNon-pressure chronic ulcer of other part of left lower leg with other specified severity 2 Cysz Rajwinder. [address], [place], [place], [address], [place]. tel:[phone] [facility], [address] [facility], [place], [place], [id number], [place] tel:[phone] [place] Muscle weakness (generalized)Other abnormalities of gait and mobilityOther chronic pain Oct-2 0 2 Naila Munoz. [address] [place], [place], [address]. tel:[phone] [facility], [address] [facility], [place], [place], [address], [place] tel:[phone] [place] Muscle weakness (generalized) Apr- 2 Baron Jl. [address] [facility] [address], [place], [address]. tel:[phone] [facility], [facility], [place], [place], [id number], [place] tel:[phone] [place] Alteration in performance of activities of daily livingDifficulty in walking, not elsewhere classifiedOther lack of coordination Apr- 2 Naila Munoz. [address] [facility] [address] [place], [place], [address]. tel:[phone] [facility], [address] [facility], [place], [place], [address], [place] tel:[phone] [place] Muscle weakness (generalized)Other chronic pain Apr- 2 Naila Munoz. [address] [place], [place], [address]. tel:[phone] [facility], [address] [facility], [place], [place], [id number], [place] tel:[phone] [place] Lymphedema due to venous insufficiencyVenous insufficiency (chronic) (peripheral) Apr- 2 Cysz Rajwinder. [address], [place], [place], [address], [place]. tel:[phone] [facility], [address] [facility], [place], [place], [address], [place] tel:[phone] [place] Muscle weakness (generalized) 2 Baron Jl. [address], [place], [address]. tel:[phone] [facility], [address] [facility], [place], [place], [id number], [place] tel:[phone] [place] Alteration in performance of activities of daily livingOther lack of coordinationMild cognitive impairment, so statedMuscle weakness (generalized) 2 Naila Munoz. [address] [facility] [address] [place], [place], [address]. tel:[phone] [facility], [address] [facility], [place], [place], [address], [place] tel:[phone] [place] urgent care - f/u skin, legs (chief complaint) Nonadherence to medical treatmentShortness of breathBMI 70 and over, adultMorbid (severe) obesity with alveolar hypoventilationLymphe darren due to venous insufficiencyVenous insufficiency (chronic) (peripheral) 2 Cysz Rajwinder. [address] [facility] [address], [place], [place], [id number], [place]. tel:[phone] [facility], [address] [facility], [place], [place], [address], [place] tel:[phone] [place] Other chronic painMuscle weakness (generalized) 2 Naila Munoz. [address] [facility] [address] [place], [place], [address]. tel:[phone] [facility], [address] [facility], [place], [place], [address], [place] tel:[phone] [place] Muscle weakness (generalized) 2 Baron Jl. [address], [place], [address]. tel:[phone] [facility], [address] [facility] [address], [place], [place], [id number], [place] tel:[phone] [place] OV (chief complaint) Edema due to congestive heart failureBlister Oct-0 2 Devante Almanza. [address] [place], [place], [id number], [place]. tel:[phone] [facility], [facility], [place], [place], [id number], [place] tel:[phone] [place] Other chronic pain Oct-0 2 Naila Martinezah Beth. [address] [facility] [place], [place], [address]. tel:[phone] [facility], [address] [facility] [address], [place], [place], [id number], [place] tel:[phone] [place] cellulitis, tele (chief complaint) Edema due to congestive heart failureCellulitis of right lower extremity Oct-0 2 Obdulio Nuzhat. [address] [facility], [place], [place], [address], [place]. tel:[phone] [facility], [address] [facility], [place], [place], [address], [place] tel:[phone] [place] Muscle weakness (generalized) Oct-0 2 Baron Jl. [address] [facility], [place], [address]. tel:[phone] [facility], [facility], [place], [place], [address], [place] tel:[phone] [place] No Information Oct-0 2 Sidney Lyona. [address] [place], [place], [address], [place]. tel:[phone] [facility], [address] [facility] [address], [place], [place], [id number], [place] tel:[phone] [place] Other chronic painMuscle weakness (generalized) Oct-0 2 Puffer Lauren Munoz. [address] [place], [place], [address]. tel:[phone] [facility], [address] [facility] [address], [place], [place], [id number], [place] tel:[phone] [place] Muscle weakness (generalized) Oct-0 2 Baron Jl. [address] [place], [address]. tel:[phone] [facility], [address] [facility] [address], [place], [place], [id number], [place] tel:[phone] [place] Muscle weakness (generalized) Apr-0 2 Baron Jl. [address], [place], [address]. tel:[phone] [facility], [address] [facility], [place], [place], [address], [place] tel:[phone] [place] Muscle weakness (generalized) Sep-2 2 Baron Jl. [address], [place], [address]. tel:[phone] [facility], [address] [facility], [place], [place], [address], [place] tel:[phone] [place] Other chronic painMuscle weakness (generalized) Sep-2 2 Puffer Lauren Munoz. [address] [place], [place], [address]. tel:[phone] [facility], [address] [facility] [address], [place], [place], [id number], [place] tel:[phone] [place] Encounter for nutritional assessmentAbnormal weight gainCounseling NOSExcessive oral intakeMorbid (severe) obesity due to excess calories Sep-2 2 Normile Stephanie. [address] [place], [place], [address], [place]. tel:[phone] [facility], [address] [facility], [place], [place], [id number], [place] tel:[phone] [place] Muscle weakness (generalized)Arthralg ia of right hand Sep-2 7 2 Puffer Lauren Shannan. [address] [place], [place], [address]. tel:[phone] [facility], [address] [facility] [address], [place], [place], [address], [place] tel:[phone] [place] Muscle weakness (generalized)Other chronic pain Sep-2 3-202 2 Puffer Lauren Shannan. [address] [place], [place], [address]. tel:[phone] [facility], [address] [facility], [place], [place], [id number], [place] tel:[phone] [place] Arthralgia of right wristMuscle weakness (generalized) Sep-2 0-202 2 Puffer Lauren Shannan. [address] [place], [place], [address]. tel:[phone] [facility], [address] [facility], [place], [place], [address], [place] tel:[phone] [place] Muscle weakness (generalized) Sep-2 0-202 2 Baron Jl. [address], [place], [address]. tel:[phone] [facility], [address] [facility] [address], [place], [place], [id number], [place] tel:[phone] [place] Muscle weakness (generalized) Sep-1 6202 2 Baron Jl. [address], [place], [address]. tel:[phone] [facility], [address] [facility] [address], [place], [place], [address], [place] tel:[phone] [place] Muscle weakness (generalized) Sep-1 5-202 2 Baron Jl. [address], [place], [address]. tel:[phone] [facility], [address], [place], [place], [id number], [place] tel:[phone] [place] Encounter for rehabilitation evaluationAlteration in performance of activities of daily livingDifficulty in walking, not elsewhere classifiedMuscle weakness (generalized)Other lack of coordination Sep-0 2 Hetalbenjamin Prettyn Coby Munoz. [address] [facility] [address] [place], [place], [address]. tel:[phone] [facility], [address], [place], [place], [id number], [place] tel:[phone] [place] Muscle weakness (generalized)Difficul ty in walking, not elsewhere classified Sep-0 2 Baron Jl. [address], [place], [address]. tel:[phone] [facility], [address], [place], [place], [id number], [place] tel:[phone] [place] Muscle weakness (generalized)Difficul ty in walking, not elsewhere classified Sep-0 2 Baron Jl. [address], [place], [address]. tel:[phone] [facility], [address], [place], [place], [id number], [place] tel:[phone] [place] Difficulty in walking, not elsewhere classifiedMuscle weakness (generalized) Sep-0 2 Baron Jl. [address], [place], [address]. tel:[phone] [facility], [address], [place], [place], [address], [place] tel:[phone] [place] Difficulty in walking, not elsewhere classified Aug-2 2 Baron Jl. [address], [place], [address]. tel:[phone] [facility], [address], [place], [place], [id number], [place] tel:[phone] [place] [facility] (chief complaint) Morbid (severe) obesity with alveolar hypoventilationBody mass index (BMI) of 60.0 to 69.9 in adultHistory of polycythemiaHypertens tonja heart and chronic kidney disease with heart failure and stage 1 through stage 4 chronic kidney disease, or unspecified chronic kidney diseaseStage 3a chronic kidney diseaseShortness of breathChronic heart failure with preserved ejection fraction 2 Cystrisha Rajwinder. [address] [place], [place], [address], [place]. tel:[phone] [facility], [address] [facility] [address] [place] [address], [id number], [place] tel:[phone] [facility] d/c (chief complaint) Body mass index (BMI) of 60.0 to 69.9 in adultMorbid (severe) obesity with alveolar hypoventilationDebili tyVenous insufficiencyLymphede ma due to venous insufficiency 2 Austin Judd. [address] [place], [place], [id number], [place]. tel:[phone] [facility], [address] [facility], [place], [place], [id number], [place] tel:[phone] [facility] follow up (chief complaint) Lymphedema due to venous insufficiencyVenous insufficiency (chronic) (peripheral)Debility 2 [employer] [address], [place], [id number], [place]. tel:[phone] [facility], [address] [facility], [place], [place], [id number], [place] tel:[phone] [facility] f/u (chief complaint) Hypertensive heart and chronic kidney disease with heart failure and stage 1 through stage 4 chronic kidney disease, or unspecified chronic kidney diseaseHeart failure with preserved ejection fraction, unspecified HF chronicityHypothyroid ism, unspecified typeStage 3a chronic kidney diseaseGeneralized anxiety disorderVaginal bleeding 2 Cyrus Watts. [address], [place], [id number], [place]. tel:[phone] [facility], [address] [facility], [place], [place], [id number], [place] tel:[phone] [facility] follow up (chief complaint) Venous insufficiencyBody mass index (BMI) of 60.0 to 69.9 in adultMorbid (severe) obesity with alveolar hypoventilationChroni c heart failure with preserved ejection fractionStage 3a chronic kidney diseaseHypertensive heart and chronic kidney disease with heart failure and stage 1 through stage 4 chronic kidney disease, or unspecified chronic kidney diseaseNormocytic anemia 2 Austin Judd. [address] [place] [address], [id number], [place]. tel:[phone] [facility], [address] [facility], [place], [place], [id number], [place] tel:[phone] [facility] f/U (chief complaint) Hypertensive heart and chronic kidney disease with heart failure and stage 1 through stage 4 chronic kidney disease, or unspecified chronic kidney diseaseStage 3a chronic kidney diseaseVenous insufficiencyNormocyt ic anemiaHeart failure with preserved ejection fraction, unspecified HF chronicity 2 Cyrus Watts. [address], [place], [id number], [place]. tel:[phone] [facility], [facility], [place], [place], [id number], [place] tel:[phone] [facility] admission (chief complaint) Venous insufficiencyNeuropat hic pain of both feetNormocytic anemiaFungal rash of trunkSwelling of upper extremityLymphedema due to venous insufficiencyVaginal bleedingHypertensive heart and chronic kidney disease with heart failure and stage 1 through stage 4 chronic kidney disease, or unspecified chronic kidney diseaseHeart failure with preserved ejection fraction, unspecified HF chronicityStage 3a chronic kidney diseaseUncomplicated asthma, unspecified asthma severity, unspecified whether persistent 2 Cyrus Watts. [address], [place], [id number], [place]. tel:[phone] [facility], [address], [place], [place], [id number], [place] tel:[phone] [place] Gait instabilityWeakness 2 Farb Benedicto. [address], [place], [address], [place]. tel:[phone] [facility], [address] [facility], [place], [place], [id number], [place] tel:[phone] [place] check in, post fall (chief complaint) Cellulitis of right lower extremityHistory of fallHypothyroidism, unspecified type 2 Cysz Rajwinder. [address] [facility] [place], [id number], [place]. tel:[phone] [facility], [address] [facility], [place], [place], [id number], [place] tel:[phone] [place] post hospital visit (chief complaint) Bipolar affective disorder, remission status unspecifiedDizzinessH istory of fallCellulitis of right lower extremityMorbid (severe) obesity with alveolar hypoventilationBody mass index (BMI) of 60.0 to 69.9 in adultJoint pain in fingers of right handPolycythemiaHisto ry of postmenopausal bleeding 2 Cysz Rajwinder. [address] [place], [id number], [place]. tel:[phone] [facility], [address] [facility], [place], [place], [id number], [place] tel:[phone] [place] History of cellulitis 2 Cysz Rajwinder. [address] [place], [id number], [place]. tel:[phone] [facility], [address] [facility] [address], [place], [place], [id number], [place] tel:[phone] [place] Polycythemia 2 Cysz Rajwinder. [address] [place], [address], [place]. tel:[phone] [facility], [facility], [place], [place], [id number], [place] tel:[phone] [place] Encounter for rehabilitation evaluationAlteration in performance of activities of daily livingMild cognitive impairment, so stated 2 Naila Aguilar oCby Munoz. [address] [place], [place], [id number]. tel:[phone] [facility], [facility], [place], [place], [id number], [place] tel:[phone] [place] Biannual - off site [place] (chief complaint) Hypertensive heart and chronic kidney disease with heart failure and stage 1 through stage 4 chronic kidney disease, or unspecified chronic kidney diseaseChronic heart failure with preserved ejection fractionCoronary artery disease involving mcgrath coronary artery of mcgrath heart without angina pectorisParoxysmal atrial fibrillationHyperlipi demia, unspecified hyperlipidemia typeSecondary hypercoagulable stateChronic anticoagulationHypoth yroidism, unspecified typeVitamin D deficiencyVitamin B12 deficiencyBody mass index (BMI) of 60.0 to 69.9 in adultGastroesophageal reflux disease, unspecified whether esophagitis presentStage 3a chronic kidney diseaseHistory of postmenopausal bleedingGeneralized anxiety disorderBorderline personality disorderBipolar disorder in partial remission, most recent episode unspecified typeMild cognitive impairmentLate effect of traumatic injury to brainPulmonary hypertensionMorbid (severe) obesity with alveolar hypoventilationUncomp licated asthma, unspecified asthma severity, unspecified whether persistentNonadherenc e to medical treatmentEncounter for general adult medical examination w/o abnormal findings 2 Cysz Rajwinder. [address], [place], [place], [id number], [place]. tel:[phone] [facility], [facility], [place], [place], [id number], [place] tel:[phone] [place] Encounter for nutritional assessmentClass 3 severe obesity with body mass index (BMI) of 60.0 to 69.9 in adult, unspecified obesity type, unspecified whether serious comorbidity presentBody mass index [BMI] 60.0-69.9, adult 2 Normile Stephanie. [address] [place], [id number], [place]. tel:[phone] [facility], [address] [facility], [place], [place], [id number], [place] tel:[phone] [place] Encounter for rehabilitation evaluation 2 Baron Parikh. [address], [place], [address]. tel:[phone] [facility], [address] [facility], [place], [place], [id number], [place] tel:[phone] [place] canceled appt (chief complaint) Sensorineural hearing loss (SNHL) of both earsEncounter for general adult medical examination w/o abnormal findings 2 Cysz Rajwinder. [address], [place], [place], [address], [place]. tel:[phone] [facility], [address] [facility], [place], [place], [id number], [place] tel:[phone] [place] Muscle weakness (generalized)Alterati on in performance of activities of daily livingDifficulty in walking, not elsewhere classified Apr-0 2 Naila Munoz. [address] [place], [place], [address]. tel:[phone] [facility], [address], [place], [place], [id number], [place] tel:[phone] [place] Muscle weakness (generalized)Other lack of coordinationAlteratio n in performance of activities of daily living 2 Naila Munoz. [address] [place], [place], [address]. tel:[phone] [facility], [address] [facility] [address], [place], [place], [id number], [place] tel:[phone] [place] Other abnormalities of gait and mobility Mar-1 0-202 2 Baron Jl. [address], [place], [address]. tel:[phone] [facility], [address], [place], [place], [id number], [place] tel:[phone] [place] Difficulty in walking, not elsewhere classifiedNeed for assistance with personal careMuscle weakness (generalized) Mar-0 7- 2 Naila Munoz. [address] [place], [place], [id number]. tel:[phone] [facility], [address] [facility], [place], [place], [id number], [place] tel:[phone] [place] Other abnormalities of gait and mobilityMuscle weakness (generalized) Mar-0 2- 2 Baron Jl. [address], [place], [address]. tel:[phone] [facility], [address] [facility], [place], [place], [id number], [place] tel:[phone] [place] Difficulty in walking, not elsewhere classifiedAlteration in performance of activities of daily livingMild cognitive impairment, so statedMuscle weakness (generalized) Feb-2 2 Naila Munoz. [address] [place], [place], [address]. tel:[phone] [facility], [address], [place], [place], [id number], [place] tel:[phone] [place] Difficulty in walking, not elsewhere classifiedMuscle weakness (generalized)Alterati on in performance of activities of daily living Aug-2 2 Naila Munoz. [address] [place], [place], [id number]. tel:[phone] [facility], [address], [place], [place], [id number], [place] tel:[phone] [place] Alteration in performance of activities of daily livingMild cognitive impairment, so statedOther lack of coordinationDifficult y in walking, not elsewhere classified 2 Naila Munoz. [address] [facility] [address] [place], [place], [id number]. tel:[phone] [facility], [address], [place], [place], [id number], [place] tel:[phone] [place] Difficulty in walking, not elsewhere classified 2 Baron Jl. [address] [facility] [address], [place], [address]. tel:[phone] [facility], [address] [facility] [address], [place], [place], [id number], [place] tel:[phone] [place] Atrial fibrillation, unspecified type 2 Cysz Rajwinder. [address] [facility], [place], [place], [id number], [place]. tel:[phone] [facility], [address] [facility] [address], [place], [place], [address], [place] tel:[phone] [place] Encounter for nutritional assessmentMorbid (severe) obesity due to excess calories 2 Normile Stephanie. [address] [facility] [address], [place], [place], [id number], [place]. tel:[phone] [facility], [address], [place], [place], [id number], [place] tel:[phone] [place] Alteration in performance of activities of daily livingDifficulty in walking, not elsewhere classified 2 Naila Munoz. [address] [facility] [address] [place], [place], [address]. tel:[phone] [facility], [address], [place], [place], [id number], [place] tel:[phone] [place] Muscle weakness (generalized) b 2 Baron Jl. [address] [facility] [place], [address]. tel:[phone] [facility], [address] [address], [place], [place], [id number], [place] tel:[phone] [place] Muscle weakness (generalized) Aug-0 2 Baron Jl. [address] [facility] [address], [place], [address]. tel:[phone] [facility], [address] [address], [place], [place], [id number], [place] tel:[phone] [place] Alteration in performance of activities of daily livingOther lack of coordinationMild cognitive impairment, so stated Aug-0 2 Naila Munoz. [address] [facility] [place], [place], [id number]. tel:[phone] [facility], [address] [address], [place], [place], [id number], [place] tel:[phone] [place] No Information b-0 2 Cysz Rajwinder. [address], [place], [id number], [place]. tel:[phone] [facility], [address] [address], [place], [place], [id number], [place] tel:[phone] [place] R foot pain (chief complaint) Cellulitis of right legAbrasion of right foot, initial encounterBody mass index (BMI) of 60.0 to 69.9 in adultMorbid (severe) obesity with alveolar hypoventilationJoint pain in fingers of right handGeneralized anxiety disorderChronic anticoagulationSecond sourav hypercoagulable stateAtrial fibrillation, unspecified type 0 2 Cysz Rajwinder. [address] [facility] [place], [id number], [place]. tel:[phone] [facility], [address], [id number], [place] tel:[phone] [place] Muscle weakness (generalized) 2 Baron Jl. [address], [place], [address]. tel:[phone] [facility], [address] [facility], [place], [place], [id number], [place] tel:[phone] [place] Muscle weakness (generalized) 2 Baron Jl. [address], [place], [address]. tel:[phone] [facility], [address] [facility] [address], [place], [place], [id number], [place] tel:[phone] [place] f/u foot (chief complaint) Right foot pain 2 Cysz Rajwinder. [address] [facility] [address], [place], [place], [id number], [place]. tel:[phone] [facility], [facility], [place], [place], [address], [place] tel:[phone] [place] Alteration in performance of activities of daily livingEncounter for rehabilitation evaluation 2 Naila Munoz. [address] [facility] [place], [place], [address]. tel:[phone] [facility], [address] [facility], [place], [place], [address], [place] tel:[phone] [place] MS Teams video - urgent foot pain, post hospital (chief complaint) History of fallHistory of cellulitisGeneralized anxiety disorderBipolar disorder, in partial remission, most recent episode manicStage 3a chronic kidney disease 2 Cysz Rajwinder. [address], [place], [place], [address], [place]. tel:[phone] [facility], [address] [facility] [address], [place], [place], [id number], [place] tel:[phone] [place] behaviors, agitation (chief complaint) Generalized anxiety disorderBipolar disorder, current episode manic without psychotic features, severe 2 Cysz Rajwinder. [address], [place], [place], [address], [place]. tel:[phone] [facility], [address] [address], [place], [place], [address], [place] tel:[phone] [place] PHV off site (chief complaint) History of pulmonary embolismChronic heart failure with preserved ejection fractionHypertensive heart and chronic kidney disease with heart failure and stage 1 through stage 4 chronic kidney disease, or unspecified chronic kidney diseaseAtrial fibrillation, unspecified typeChronic anticoagulationSecond sourav hypercoagulable stateHypothyroidism, unspecified typeBody mass index (BMI) of 60.0 to 69.9 in adultMorbid (severe) obesity with alveolar hypoventilationGastro esophageal reflux disease, unspecified whether esophagitis presentHistory of fallHyperlipidemia, unspecified hyperlipidemia typeStage 3a chronic kidney [id number] novel coronavirus disease (COVID-19)Generalized anxiety disorderBorderline personality disorderBipolar disorder, in partial remission, most recent episode mixedPostmenopausal bleedingAlcohol abuse, in remissionMild cognitive impairmentHistory of cellulitisChronic obstructive pulmonary disease, unspecified COPD typeLate effect of traumatic injury to brainPulmonary hypertensionVitamin B12 deficiencyVitamin D deficiency 2 Cysz Rajwinder. [address], [place], [place], [id number], [place]. tel:[phone] [facility], [address] [place] [address], [place], [place], [address], [place] tel:[phone] [place] Encounter for rehabilitation evaluationPrimary generalized (osteo)arthritis 2 Naila Munoz. 101 [facility] [address] [place], [place], [id number]. tel:[phone] [facility], [address] [address], [place], [place], [address], [place] tel:[phone] [place] Hypothyroidism, unspecified type 2 Cysz Rajwinder. [address] [place], [address], [place]. tel:[phone] [facility], [address] [facility] [address], [place], [place], [id number], [place] tel:[phone] [place] ÁNGELA (chief complaint) Advanced care planning/counseling discussionBigeminyHyp erlipidemia, unspecified hyperlipidemia typeHypothyroidism, unspecified typeBody mass index (BMI) of 60.0 to 69.9 in adultVitamin D deficiencyVitamin B12 deficiencyGastroesoph ageal reflux disease, unspecified whether esophagitis presentStage 3a chronic kidney diseasePostmenopausal bleedingFamily history of malignant neoplasm of uterusGeneralized anxiety disorderBorderline personality disorderAlcohol abuse, in remissionMild cognitive impairmentLate effect of traumatic injury to brainChronic obstructive pulmonary disease, unspecified COPD typePulmonary hypertensionMorbid (severe) obesity with alveolar hypoventilationEncoun ter for general adult medical examination w/o abnormal findingsCataract of both eyes, unspecified cataract typeFungal rash of trunkBipolar disorder, in partial remission, most recent episode mixedHypertensive heart and chronic kidney disease with heart failure and stage 1 through stage 4 chronic kidney disease, or unspecified chronic kidney diseaseChronic heart failure with preserved ejection fraction (HFpEF) 1 Cysz Rajwinder. [address], [place], [id number], [place]. tel:[phone] [facility], [address] [facility], [place], [place], [id number], [place] tel:[phone] [place] Morbid (severe) obesity with alveolar hypoventilation 1 Cysz Rajwinder. [address], [place], [id number], [place]. tel:[phone] [facility], [address] [facility], [place], [place], [address], [place] tel:[phone] [place] Postmenopausal bleeding 1 Os Amarilis. 101 [facility] [place], [address], [place]. tel:[phone] [facility], [address], [place], [place], [id number], [place] tel:[phone] [place] Encounter for rehabilitation evaluation 1 Baron Jl. [address] [place], [address]. tel:[phone] [facility], [address], [place], [place], [id number], [place] tel:[phone] [place] Muscle weakness (generalized) 1 Baron Jl. [address] [place], [address]. tel:[phone] [facility], [address], [place], [place], [address], [place] tel:[phone] [place] Muscle weakness (generalized) 1 Baron Jl. [address] [place], [address]. tel:[phone] [facility], [address], [place], [place], [address], [place] tel:[phone] [place] Muscle weakness (generalized) 1 Baron Jl. [address] [place], [address]. tel:[phone] [facility], [address], [place], [place], [id number], [place] tel:[phone] [place] Muscle weakness (generalized) 1 Baron Jl. [address], [place], [address]. tel:[phone] [facility], [address], [place], [place], [address], [place] tel:[phone] [place] OV (chief complaint) BigeminyHypertensive heart and chronic kidney disease with heart failure and stage 1 through stage 4 chronic kidney disease, or unspecified chronic kidney diseaseChronic heart failure with preserved ejection fractionStage 3a chronic kidney diseasePostmenopausal bleeding 1 Cysz Rajwinder. [address] [place], [id number], [place]. tel:[phone] [facility], [address], [place], [place], [id number], [place] tel:[phone] [place] Muscle weakness (generalized) 1 Baron Jl. [address] [place], [address]. tel:[phone] [facility], [address], [place], [place], [id number], [place] tel:[phone] [place] Muscle weakness (generalized) 1 Baron Jl. [address] [place], [address]. tel:[phone] [facility], [address] [facility] [facility], [place], [place], [address], [place] tel:[phone] [place] BigeminyHistory of 2019 novel coronavirus disease (COVID-19)Hypertensiv e heart and chronic kidney disease with heart failure and stage 1 through stage 4 chronic kidney disease, or unspecified chronic kidney diseaseHeart failure with preserved ejection fraction, unspecified HF chronicity 1 Sidney Purdy. [address] [place], [place], [address], [place]. tel:[phone] [facility], [address] [facility], [place], [place], [address], [place] tel:[phone] [place] Other chronic pain 1 Baron Jl. [address] [place], [address]. tel:[phone] [facility], [address], [place], [place], [id number], [place] tel:[phone] [place] Dysphagia, pharyngoesophageal 1 Ag Frank. [address] [place] [address], [place], [place], [id number]. tel:[phone] [facility], [address], [place], [place], [id number], [place] tel:[phone] [place] Muscle weakness (generalized) Oct-0 1 Baron Jl. [address] [place], [address]. tel:[phone] [facility], [address], [place], [place], [id number], [place] tel:[phone] [place] Dysphagia, pharyngoesophageal Apr-0 1 Ag Frank. [address] [place] [address], [place], [place], [id number]. tel:[phone] [facility], [address] [facility] [facility], [place], [place], [address], [place] tel:[phone] [place] Difficulty swallowin g pillsGastroesophageal reflux disease, unspecified whether esophagitis present Sep-3 1 Sidney Purdy. [address] [place], [place], [address], [place]. tel:[phone] [facility], [address] [facility], [place], [place], [id number], [place] tel:[phone] [place] Muscle weakness (generalized) Sep-2 1 Baron Jl. [address], [place], [address]. tel:[phone] [facility], [address] [facility], [place], [place], [id number], [place] tel:[phone] [place] Muscle weakness (generalized) Sep-2 1 Baron Jl. [address] [place], [address]. tel:[phone] [facility], [address] [facility], [place], [place], [id number], [place] tel:[phone] [place] No Information Sep-2 1 Kadeem Diane. [address] [facility], [place], [address], [place]. tel:[phone] [facility], [address] [facility] [address], [place], [place], [address], [place] tel:[phone] [place] Muscle weakness (generalized) Sep-2 2 1 Baron Jl. [address] [place], [address]. tel:[phone] [facility], [address] [facility] [address], [place], [place], [id number], [place] tel:[phone] [place] Office Visit (chief complaint) Shortness of breathHistory of cellulitisChronic obstructive pulmonary disease, unspecified COPD type Sep-2 1- 1 Os Amarilis. [address] [place], [place], [address], [place]. tel:[phone] [facility], [address] [facility], [place], [place], [id number], [place] tel:[phone] [place] Muscle weakness (generalized) Sep-2 0- 1 Baron Jl. [address] [place], [address]. tel:[phone] [facility], [address] [facility] [address] [facility] [facility], [place], [place], [id number], [place] tel:[phone] [place] Muscle weakness (generalized) Sep-1 5 1 [address] [place], [address]. tel:[phone] [facility], [address] [facility], [place], [place], [id number], [place] tel:[phone] [place] Muscle weakness (generalized) Sep-1 0-202 1 [address] [place], [address]. tel:[phone] [facility], [address] [facility], [place], [place], [id number], [place] tel:[phone] [place] Hemiplegia and hemiparesis following unspecified cerebrovascular disease affecting right non-dominant sideMuscle weakness (generalized) Sep-0 8-202 1 [address] [place], [address]. tel:[phone] [facility], [address] [facility] [address], [place], [place], [id number], [place] tel:[phone] [place] Gastroesophageal reflux disease, unspecified whether esophagitis presentDifficulty swallowing pills Sep-0 1 Cysz Rajwinder. [address] [place], [id number], [place]. tel:[phone] [facility], [address] [facility] [address], [place], [place], [id number], [place] tel:[phone] [place] Dysphagia, oropharyngeal Sep-0 1 Ag Frank. [address] [place] [address], [place], [place], [id number]. tel:[phone] [facility], [address] [facility], [place], [place], [id number], [place] tel:[phone] [place] Muscle weakness (generalized) Sep-0 1 [address] [place], [address]. tel:[phone] [facility], [address] [facility], [place], [place], [id number], [place] tel:[phone] [place] Muscle weakness (generalized)Mild cognitive impairment, so stated 3 1 [address] [place], [address]. tel:[phone] [facility], [address] [facility], [place], [place], [id number], [place] tel:[phone] [place] upper respiratory concerns (chief complaint) Upper respiratory symptomMorbid (severe) obesity with alveolar hypoventilationBody mass index (BMI) of 60.0 to 69.9 in adultPostmenopausal bleedingPulmonary hypertension Feb-2 1 Cysz Rajwinder. [address] [place], [id number], [place]. tel:[phone] [facility], [address] [facility], [place], [place], [id number], [place] tel:[phone] [place] Muscle weakness (generalized) 1 [address], [place], [address]. tel:[phone] [facility], [address], [place], [place], [id number], [place] tel:[phone] [place] Dysphagia, oropharyngeal Feb- 1 Ag Frank. [address] [facility], [place], [place], [id number]. tel:[phone] [facility], [address], [place], [place], [id number], [place] tel:[phone] [place] Muscle weakness (generalized) 1 Naila Munoz. [address] [place], [place], [id number]. tel:[phone] [facility], [address] [facility], [place], [place], [id number], [place] tel:[phone] [place] Muscle weakness (generalized) 1 [address], [place], [address]. tel:[phone] [facility], [address] [facility], [place], [place], [id number], [place] tel:[phone] [place] Muscle weakness (generalized) 1 [address], [place], [address]. tel:[phone] [facility], [address] [facility] [address], [place], [place], [id number], [place] tel:[phone] [place] Encounter for rehabilitation evaluation 1 [address], [place], [address]. tel:[phone] [facility], [address] [facility], [place], [id number], [place] tel:[phone] [place] Muscle weakness (generalized) 1 [address] [place], [address]. tel:[phone] [facility], [address], [place], [place], [id number], [place] tel:[phone] [place] Muscle weakness (generalized) 1 [address] [place], [address]. tel:[phone] [facility], [address], [place], [place], [id number], [place] tel:[phone] [place] Muscle weakness (generalized) 1 [address] [place], [address]. tel:[phone] [facility], [address], [place], [place], [id number], [place] tel:[phone] [place] Muscle weakness (generalized) 1 Naila Munoz[address] [place], [place], [address]. tel:[phone] [facility], [address], [place], [place], [id number], [place] tel:[phone] [place] Muscle weakness (generalized) 1 [address], [place], [address]. tel:[phone] [facility], [address], [place], [place], [id number], [place] tel:[phone] [place] Muscle weakness (generalized) 1 Naila Munoz. [address] [place], [place], [address]. tel:[phone] [facility], [address], [place], [place], [id number], [place] tel:[phone] [place] Dysphagia, oropharyngeal 1 Ag Frank. [address] [facility], [place], [place], [address]. tel:[phone] [facility], [address], [place], [place], [id number], [place] tel:[phone] [place] Muscle weakness (generalized) 1 [address], [place], [address]. tel:[phone] [facility], [address], [place], [place], [id number], [place] tel:[phone] [place] Muscle weakness (generalized) 1 Naila Munoz. [address] [place], [place], [address]. tel:[phone] [facility], [address] [facility], [place], [place], [address], [place] tel:[phone] [place] Muscle weakness (generalized) 1 [address], [place], [address]. tel:[phone] [facility], [address] [facility] [address], [place], [place], [id number], [place] tel:[phone] [place] Primary generalized (osteo)arthritis 1 Cysz Rajwinder. [address], [address], [place]. tel:[phone] [facility], [address], [place], [place], [id number], [place] tel:[phone] [place] Muscle weakness (generalized) 1 [address] [place], [address]. tel:[phone] [facility], [address], [place], [place], [id number], [place] tel:[phone] [place] Muscle weakness (generalized) 1 Naila Martinezah Beth. [address] [place], [place], [address]. tel:[phone] [facility], [address], [place], [place], [address], [place] tel:[phone] [place] Muscle weakness (generalized) 1 [address], [place], [address]. tel:[phone] [facility], [address], [place], [place], [address], [place] tel:[phone] [place] Muscle weakness (generalized) 1 Naila Munoz. [address] [place], [place], [address]. tel:[phone] [facility], [address] [facility], [place], [place], [id number], [place] tel:[phone] [place] Muscle weakness (generalized) 1 Hetalffer Lauren Tenorio Beth. [address] [place], [place], [address]. tel:[phone] [facility], [address] [facility] [address], [place], [place], [id number], [place] tel:[phone] [place] Muscle weakness (generalized) 1 [address], [place], [address]. tel:[phone] [facility], [address], [place], [place], [id number], [place] tel:[phone] [place] Muscle weakness (generalized) 1 Puffer Lauren Tenorio Beth. [address] [place], [place], [address]. tel:[phone] [facility], [address], [place], [place], [address], [place] tel:[phone] [place] Hypertensive heart and chronic kidney disease with heart failure and stage 1 through stage 4 chronic kidney disease, or unspecified chronic kidney diseaseImpacted cerumen, left ear 1 Cysz Rajwinder. [address] [place], [address], [place]. tel:[phone] [facility], [address] [facility], [place], [place], [address], [place] tel:[phone] [place] Alteration in performance of activities of daily livingOther chronic painUnspecified abnormalities of gait and mobility 1 Naila Martinezah Beth. 101 [facility] [address] [place], [place], [address]. tel:[phone] [facility], [address] [facility], [place], [place], [address], [place] tel:[phone] [place] Muscle weakness (generalized) 1 [address] [facility], [place], [address]. tel:[phone] [facility], [address] [facility], [place], [place], [address], [place] tel:[phone] [place] Muscle weakness (generalized) 1 Naila Martinezah Beth. [address] [facility] [address] [place], [place], [address]. tel:[phone] [facility], [address] [facility], [place], [place], [address], [place] tel:[phone] [place] Hypertensive heart and chronic kidney disease with heart failure and stage 1 through stage 4 chronic kidney disease, or unspecified chronic kidney disease 1 Cysz Rajwinder. [address] [facility] [place], [address], [place]. tel:[phone] [facility], [address] [facility], [place], [place], [address], [place] tel:[phone] [place] Encounter for nutritional assessmentMorbid (severe) obesity due to excess calories 1 India Britton. [address], [place], [address]. tel:[phone] [facility], [facility], [place], [place], [id number], [place] tel:[phone] [place] biannual (chief complaint) Encounter for general adult medical examination w/o abnormal findingsEncounter for screening mammogram for breast cancerAdvanced care planning/counseling discussionVitamin D deficiencyVitamin B12 deficiencyHypothyroid ism, unspecified typeMorbid (severe) obesity with alveolar hypoventilationBody mass index (BMI) of 60.0 to 69.9 in adultSensorineural hearing loss (SNHL) of both earsCataract of both eyes, unspecified cataract typePulmonary hypertensionChronic obstructive pulmonary disease, unspecified COPD typeMild cognitive impairmentPrimary generalized (osteo)arthritisAlcoh ol abuse, in remissionGeneralized anxiety disorderHistory of cellulitisFamily history of malignant neoplasm of uterusPostmenopausal bleedingStage 3a chronic kidney diseaseMixed hyperlipidemiaChronic heart failure with preserved ejection fractionHypertensive heart and chronic kidney disease with heart failure and stage 1 through stage 4 chronic kidney disease, or unspecified chronic kidney diseaseJoint pain in fingers of right handGastroesophageal reflux disease, unspecified whether esophagitis presentNonadherence to medical treatmentImpacted cerumen, left earBorderline personality disorderBipolar disorder, current episode mixed, moderate 1 Sidney Purdy. [address], [place], [place], [id number], [place]. tel:[phone] [facility], [address] [facility], [place], [place], [address], [place] tel:[phone] [place] Difficulty in walking, not elsewhere classified 1 Baron Parikh. [address], [place], [address]. tel:[phone] [facility], [address] [facility], [place], [place], [id number], [place] tel:[phone] [place] Alteration in performance of activities of daily livingOther lack of coordinationPrimary generalized (osteo)arthritis 1 Naila Munoz. [address] [place], [place], [address]. tel:[phone] [facility], [address], [place], [place], [id number], [place] tel:[phone] [facility], pharyngoesophageal 1 Ag Frank. [address] [place] [address], [place], [place], [address]. tel:[phone] [facility], [address], [place], [place], [address], [place] tel:[phone] [place] Muscle weakness (generalized) 1 [address], [place], [address]. tel:[phone] [facility], [address], [place], [place], [id number], [place] tel:[phone] [place] Muscle weakness (generalized) 1 [address], [place], [address]. tel:[phone] [facility], [address], [place], [place], [address], [place] tel:[phone] [place] Alteration in performance of activities of daily livingPrimary generalized (osteo)arthritis 1 Naila Munoz. [address], [place], [place], [address]. tel:[phone] [facility], [address] [facility] [address], [place], [place], [address], [place] tel:[phone] [place] Encounter for rehabilitation evaluation 1 Baron Parikh. [address], [place], [address]. tel:[phone] [facility], [address], [place], [place], [address], [place] tel:[phone] [facility] hospital visit (chief complaint) Body mass index (BMI) of 60.0 to 69.9 in adultMorbid (severe) obesity with alveolar hypoventilationMild cognitive impairmentHistory of motor vehicle accidentGeneralized anxiety disorderBorderline personality disorderBipolar affective disorder, currently manic, moderateCellulitis of right lower extremityHistory of chest pain 1 Cysz Rajwinder. [address] [place], [place], [address], [place]. tel:[phone] [facility], [address] [facility], [place], [place], [address], [place] tel:[phone] [place] Primary generalized (osteo)arthritis 1 Cysz Rajwinder. [address] [place], [place], [address], [place]. tel:[phone] [facility], [address] [facility], [place], [place], [address], [place] tel:[phone] [place] Encounter for rehabilitation evaluationPrimary generalized (osteo)arthritis 1 Naila Munoz. [address] [place], [place], [address]. tel:[phone] [facility], [facility], [place], [place], [address], [place] tel:[phone] [place] No Information 1 Austin Judd. [address] [place], [place], [address], [place]. tel:[phone] [facility], [address] [facility] [address], [place], [address], [place] tel:[phone] [place] Hemiplegia and hemiparesis following unspecified cerebrovascular disease affecting left dominant sideMuscle weakness (generalized) 1 Baron Parikh. [address] [place], [address]. tel:[phone] [facility], [address] [facility], [place], [place], [address], [place] tel:[phone] [place] Muscle weakness (generalized) Mar-1 7-202 1 [address], [place], [address]. tel:[phone] [facility], [address] [facility] [address], [place], [place], [address], [place] tel:[phone] [place] Muscle weakness (generalized) Mar-1 5-202 1 [address], [place], [address]. tel:[phone] [facility], [address] [facility], [place], [place], [address], [place] tel:[phone] [place] Muscle weakness (generalized) Mar-1 0-202 1 Baron [address], [place], [address]. tel:[phone] [facility], [address] [facility], [place], [place], [address], [place] tel:[phone] [place] Alteration in performance of activities of daily livingMuscle weakness (generalized) Mar-1 0-202 1 Naila Munoz. [address] [place], [place], [address]. tel:[phone] [facility], [address] [facility], [place], [place], [address], [place] tel:[phone] [place] Muscle weakness (generalized) Mar-0 8-202 1 Baron [address], [place], [address]. tel:[phone] [facility], [address] [facility] [address], [place], [place], [address], [place] tel:[phone] [place] Muscle weakness (generalized) Mar-0 3-202 1 Baron [address], [place], [address]. tel:[phone] [facility], [address], [place], [place], [address], [place] tel:[phone] [place] Alteration in performance of activities of daily livingMuscle weakness (generalized) Mar-0 1 Naila Martinezah Beth. [address] [place], [place], [address]. tel:[phone] [facility], [address], [place], [place], [address], [place] tel:[phone] [place] Muscle weakness (generalized) Mar-0 - 1 Baron [address], [place], [address]. tel:[phone] [facility], [address] [facility] [address], [place], [place], [address], [place] tel:[phone] [place] Muscle weakness (generalized)Other lack of coordinationAlteratio n in performance of activities of daily living Feb-2 1 Naila Martinezah Beth. [address] [place], [place], [address]. tel:[phone] [facility], [address] [facility], [place], [place], [address], [place] tel:[phone] [place] Muscle weakness (generalized) Feb-2 1 [address], [place], [address]. tel:[phone] [facility], [address] [facility] [address], [place], [place], [address], [place] tel:[phone] [place] Muscle weakness (generalized) Feb-2 2 1 [address], [place], [address]. tel:[phone] [facility], [address], [place], [place], [address], [place] tel:[phone] [place] Alteration in performance of activities of daily livingMuscle weakness (generalized) Feb- 1 Naila Munoz. 101 [facility], [place], [place], [address]. tel:[phone] [facility], [facility], [place], [place], [address], [place] tel:[phone] [place] Muscle weakness (generalized) b- 1 Austin Judd. [address] [place], [place], [address], [place]. tel:[phone] [facility], [facility], [place], [place], [address], [place] tel:[phone] [place] Muscle weakness (generalized) 1 [address] [place], [address]. tel:[phone] [facility], [facility], [place], [place], [address], [place] tel:[phone] [place] Muscle weakness (generalized) b- 1 [address] [place], [address]. tel:[phone] [facility], [facility], [place], [place], [id number], [place] tel:[phone] [place] Cellulitis (chief complaint)co nt. (chief complaint) Postmenopausal bleedingCellulitis of right lower extremity Aug- 1 Obdulio Noland. [address] [place], [place], [address], [place]. tel:[phone] [facility], [facility], [place], [place], [address], [place] tel:[phone] [place] Alteration in performance of activities of daily livingMuscle weakness (generalized) b- 0- 1 Naila Munoz. [address] [place], [place], [address]. tel:[phone] [facility], [address], [place], [place], [id number], [place] tel:[phone] [place] Alteration in performance of activities of daily livingMuscle weakness (generalized) Feb-0 - 1 Naila Munoz. [address] [place], [place], [address]. tel:[phone] [facility], [address] [facility] [address], [place], [place], [address], [place] tel:[phone] [place] Other abnormalities of gait and mobility Feb-0 5- 1 Baron [address], [place], [address]. tel:[phone] [facility], [address] [facility] [address], [place], [place], [address], [place] tel:[phone] [place] Other abnormalities of gait and mobility Feb-0 - 1 Baron [address], [place], [address]. tel:[phone] [facility], [address] [facility], [place], [place], [address], [place] tel:[phone] [place] Encounter for rehabilitation evaluationAlteration in performance of activities of daily living 1 Naila Munoz. [address] [place], [place], [address]. tel:[phone] [facility], [address] [facility] [address], [place], [place], [address], [place] tel:[phone] [place] Encounter for rehabilitation evaluation 1 Baron Jl. [address], [place], [address]. tel:[phone] [facility], [address] [facility] [address], [place], [place], [address], [place] tel:[phone] [place] 2019 novel coronavirus disease (COVID-19) 1 Sidney Purdy. [address], [place], [place], [address], [place]. tel:[phone] [facility], [address], [place], [place], [id number], [place] tel:[phone] [place] COVID follow up (chief complaint) 2019 novel coronavirus disease (COVID-19)Pulmonary emphysema, unspecified emphysema type 1 Cysz Rajwinder. [address], [place], [place], [id number], [place]. tel:[phone] [facility], [address], [place], [place], [address], [place] tel:[phone] [place] 2018 novel coronavirus disease (COVID-19) 1 Cysz Rajwinder. [address], [address], [place]. tel:[phone] [facility], [address], [place], [place], [address], [place] tel:[phone] [place] post ED visit - COVID19; + D Dimer (chief complaint) History of pulmonary embolismChronic heart failure with preserved ejection fraction (HFpEF)Postmenopausal bleeding 0 Cysz Rajwinder. [address], [place], [place], [address], [place]. tel:[phone] [facility], [address] [facility], [place], [place], [address], [place] tel:[phone] [place] Muscle weakness (generalized) 0 Baron Jl. [address], [place], [address]. tel:[phone] [facility], [address], [place], [place], [address], [place] tel:[phone] [place] follow up RLE (chief complaint) Shortness of breathHistory of pulmonary embolismMorbid (severe) obesity with alveolar hypoventilation 0 Cysz Rajwinder. [address], [place], [place], [address], [place]. tel:[phone] [facility], [address] [facility], [place], [place], [address], [place] tel:[phone] [place] semiannual / exam prior to moving [facility] (chief complaint) Hypertensive heart and chronic kidney disease with heart failure and stage 1 through stage 4 chronic kidney disease, or unspecified chronic kidney diseaseChronic heart failure with preserved ejection fraction (HFpEF)Mixed hyperlipidemiaHistory of pulmonary embolismMorbid obesityHypothyroidism , unspecified typeBMI 50.0-59.9, adultVitamin D deficiencyVitamin B12 deficiencySensorineur al hearing loss (SNHL) of both earsCataract of both eyes, unspecified cataract typeStage 3a chronic kidney diseasePostmenopausal bleedingHistory of mammogramFamily history of malignant neoplasm of uterusGeneralized anxiety disorderBorderline personality disorderBipolar disorder, current episode mixed, mildLate effect of traumatic injury to brainChronic obstructive pulmonary disease with (acute) lower respiratory infectionPulmonary hypertensionAdvanced care planning/counseling discussion Jun- 0 Cysz Rajwinder. [address], [place], [place], [id number], [place]. tel:[phone] [facility], [address] [facility] [place], [place], [id number], [place] tel:[phone] [place] Muscle weakness (generalized) 0 Baron Jl. [address], [place], [address]. tel:[phone] [facility], [address] [facility] [address] [place], [place], [id number], [place] tel:[phone] [place] Difficulty in walking, not elsewhere classified Dec-0 0 Baron Jl[address], [place], [address]. tel:[phone] [facility], [address] [facility] [address] [facility] [place], [place], [id number], [place] tel:[phone] [place] Encounter for rehabilitation evaluation Dec-0 3-202 0 Baron Jl[address] [place], [address]. tel:[phone] [facility], [address] [address], [place], [place], [id number], [place] tel:[phone] [place] post ER visit/ follow up RLE (chief complaint) Pulmonary hypertensionCelluliti s of right lower extremityChronic diastolic heart failureGeneralized anxiety disorderPostmenopausa l bleedingStage 3a chronic kidney diseaseHypertensive heart and chronic kidney disease with heart failure and stage 1 through stage 4 chronic kidney disease, or unspecified chronic kidney diseaseBorderline personality disorderDizzinessShor tness of breath 0 Cysz Rajwinder. [address] [place], [place], [id number], [place]. tel:[phone] [facility], [address], [id number], [place] tel:[phone] [place] lab review (chief complaint) Hypothyroidism, unspecified typeVitamin D deficiencyVitamin B12 deficiency 0 Austin Dutch. [address] [place], [place], [id number], [place]. tel:[phone] [facility], [address] [address], [place], [place], [id number], [place] tel:[phone] [place] RLE redness (chief complaint) Morbid obesityChronic diastolic heart failureGeneralized anxiety disorderBorderline personality disorderPulmonary hypertensionCelluliti s of right lower extremityMeralgia paresthetica of right side Nov-2 0202 0 Cysz Rajwinder. [address] [place], [place], [id number], [place]. tel:[phone] [facility], [address], [id number], [place] tel:[phone] [place] No Information 0 Austin Dutch. [address], [place], [id number], [place]. tel:[phone] [facility], [address], [place], [place], [id number], [place] tel:[phone] [place] routine follow up chronic mgt (chief complaint) Morbid obesityBMI 50.0-59.9, adultPostmenopausal bleedingGeneralized anxiety disorderBipolar disorder in partial remission, most recent episode unspecified typePulmonary hypertensionPulmonary emphysema, unspecified emphysema typeHypertensive heart and kidney disease with chronic diastolic congestive heart failure and stage 3 chronic kidney diseaseChronic diastolic heart failureCKD (chronic kidney disease) stage 3, GFR 30-59 ml/minSensorineural hearing loss (SNHL) of both ears Sep-1 4-202 0 Sidney Purdy. [address] [place], [place], [id number], [place]. tel:[phone] [facility], [address] [facility] [address], [place], [place], [id number], [place] tel:[phone] [place] Alteration in performance of activities of daily living Sep-1 0-202 0 Naila Martinezah Beth. [address] [facility], [place], [place], [id number]. tel:[phone] [facility], [address] [facility] [address] [facility], [place], [place], [id number], [place] tel:[phone] [place] Hypertensive heart disease with heart failure and stage 3 chronic kidney disease, unspecified heart failure typeChronic kidney disease, stage 3 (moderate) Sep-0 9-202 0 Austin Judd. [address] [place], [place], [id number], [place]. tel:[phone] [facility], [address] [facility] [address] [facility], [place], [place], [id number], [place] tel:[phone] [place] No Information Sep-0 8-202 0 Austin Judd. [address] [place], [place], [id number], [place]. tel:[phone] [facility], [address] [facility] [address] [facility], [place], [place], [id number], [place] tel:[phone] [place] Morbid obesityPostmenopausal bleeding 0 Cysz Rajwinder. [address], [place], [place], [id number], [place]. tel:[phone] [facility], [address] [facility] [address] [facility], [place], [place], [id number], [place] tel:[phone] [place] Other lack of coordination 0 Naila Aguilar Coby Munoz. [address] [place], [place], [id number]. tel:[phone] [facility], [address] [facility], [place], [place], [id number], [place] tel:[phone] [place] routine follow up/chronic conditions (chief complaint) Hypertensive heart disease with heart failure and stage 3 chronic kidney disease, unspecified heart failure typePostmenopausal bleedingCataract of both eyes, unspecified cataract typeBipolar disorder in partial remission, most recent episode unspecified typePulmonary emphysema, unspecified emphysema type 0 Cysz Rajwinder. [address], [place], [place], [id number], [place]. tel:[phone] [facility], [address] [facility] [address], [place], [place], [id number], [place] tel:[phone] [place] PEE (chief complaint) History of pulmonary embolismHypothyroidis m, unspecified typeMorbid obesityBMI 60.0-69.9, adultVitamin D deficiencyVitamin B12 deficiencyCataract of both eyes, unspecified cataract typePostmenopausal bleedingFamily history of malignant neoplasm of uterusPulmonary hypertensionPulmonary emphysema, unspecified emphysema typeImpacted cerumen of both earsMixed hyperlipidemiaBipolar disorder, current episode mixed, severe, without psychotic featuresGeneralized anxiety disorderBorderline personality disorderPrimary generalized (osteo)arthritisMild cognitive impairmentCervical stenosis of spineLate effect of traumatic injury to brainChronic diastolic heart failureCKD (chronic kidney disease) stage 3, GFR 30-59 ml/minHypertensive heart and kidney disease with chronic diastolic congestive heart failure and stage 2 chronic kidney diseaseAlcohol abuse, in remission 0 Cysz Rajwinder. [address], [place], [place], [id number], [place]. tel:[phone] [facility], [address], [place], [place], [id number], [place] tel:[phone] [place] post enrollment exam (chief complaint) Pulmonary emphysema, unspecified emphysema typePulmonary hypertension, unspecifiedEncounter for general adult medical examination w/o abnormal findingsCataract of both eyes, unspecified cataract type 0 Cysz Rajwinder. [address], [place], [place], [id number], [place]. tel:[phone] [facility], [address] [facility], [place], [place], [id number], [place] tel:[phone] [place] Encounter for nutritional assessmentMorbid (severe) obesity due to excess calories 0 India Reba. [address], [place], [address]. tel:[phone] [facility], [address] [facility], [place], [place], [id number], [place] tel:[phone] [place] Difficulty in walking, not elsewhere classifiedAlteration in performance of activities of daily livingOther abnormalities of gait and mobilityUnsteadiness on feet 0 Baron Jl. [address], [place], [address]. tel:[phone] [facility], [address], [place], [place], [id number], [place] tel:[phone] [place] Encounter for rehabilitation evaluation 0 Theroux Caprice. [address] [place], [address]. tel:[phone] [facility], [address], [place], [place], [id number], [place] tel:[phone] [place] Difficulty in walking, not elsewhere classified 0 Baron Jl. [address] [place], [address]. tel:[phone] [facility], [address] [facility] [address], [place], [place], [id number], [place] tel:[phone] [place] Post-ED visit (chief complaint) Hyperlipidemia, unspecified hyperlipidemia typeHypothyroidism, unspecified typeVitamin D deficiencyVitamin B12 deficiencyPost-menopa usal bleedingHypertensive heart disease with heart failureMorbid obesityBMI 50.0-59.9, adultDizzinessBipolar affective disorder, current episode depressed, current episode severity unspecified 0 Cysz Rajwinder. [address] [place], [place], [id number], [place]. tel:[phone] [facility], [address] [facility], [place], [place], [id number], [place] tel:[phone] [place] Encounter for rehabilitation evaluation 0 Baron Jl[address], [place], [address]. tel:[phone] [facility], [address] [facility], [place], [place], [id number], [place] tel:[phone] [place] FaceTime COVID19 pandemic - meet and greet (chief complaint) AgitationHx of vaginal bleedingGeneralized anxiety disorderBipolar affective disorder, remission status unspecifiedFamily history of malignant neoplasm of uterus 0 Cysz Rajwinder. [address] [place], [place], [id number], [place]. tel:[phone] [facility], [address] [facility], [place], [place], [id number], [place] tel:[phone] [place] Agitation 0 Cysz Rajwinder. [address] [place], [id number], [place]. tel:[phone] [facility], [address] [facility], [place], [place], [id number], [place] tel:[phone] [place] chart update (chief complaint) Seasonal allergic rhinitis due to pollenHistory of colonoscopyBMI 50.0-59.9, adultPulmonary hypertensionCataract of both eyes, unspecified cataract typeHyperlipidemia, unspecified hyperlipidemia typeHistory of pulmonary embolismMild cognitive impairmentTraumatic brain injury with loss of consciousness, sequelaFamily history of malignant neoplasm of uterusMorbid obesityPrimary generalized (osteo)arthritisHisto ry of mammogramHx of vaginal bleedingHypertensive heart disease with heart failureChronic diastolic heart failureCoronary artery disease involving mcgrath coronary artery of mcgrath heart, angina presence unspecifiedHypothyroi dism, unspecified typeVitamin D deficiencyVitamin B12 deficiencyChronic constipationBipolar affective disorder, remission status unspecifiedGeneralize d anxiety disorderBorderline personality disorderCervical stenosis of spinePulmonary emphysema, unspecified emphysema type 0 India Britton. [address] [place] [address], [address]. tel:[phone] [facility], [address] [place] [address], [id number], tel:[phone] [place] Encntr for general adult medical exam w/o abnormal findingsEncounter for screening for respiratory tuberculosis 0 Austin Judd. [address] [place] [address], [id number], . tel:[phone] Family History Family Member Type Diagnosis Age At Onset No Information Immunizations Vaccine Date Status Comments FLUAD QUAD [id number] - SENIO R DOSE administered Source: New Immuniza tion Record PCV20 administered Source: Other R egistry COVID-19 Pfizer Bivalent 12y+ administere d Source: Other Registry Fluzone High-Dose 1010-2291 administered Source: New Immunization Record Pneumococcal polysaccharide PPV23 administered Source: New Immuniza tion Record COVID-19 Pfizer administered Source: Othe r Registry Fluzone High-Dose administered Source: New Immunization Record COVID-19 Pfizer administered Source: Othe r Registry COVID-19 (Pfizer) administered Source: Ot her Provider Zoster recombinant subunit administered S ource: New Immunization Record Fluzone High-Dose administered Source: New Immunization Record Zoster recombinant subunit administered S ource: New Immunization Record pneumococcal conjugate vacci ne, 13 valent administered Note: PCP office ; S ource: Parents Written Record Pneumococcal polysaccharide PPV23 administered Note: prior PCP offi ce records ; Source: Parents Written Record Zoster administered Note: per previ ous PCP notes ; Source: Parents Written Record Tdap administered Note: pre-enrol lment records ; Source: Parents Written Record Payers Payer name Insurance type Covered constitution party ID Merced lyon(s) [employer] 16 [id number] [employer] 16 [id number] [employer] 16 [id number] [employer] 16 [id number] [place] 16 [id number] [place] 16 [id number] [employer] 16 [id number] [employer] 16 [id number] Social History Type Description Quantity Date Captured Comments Sex Female Smoking Status No Information Chief Complaint And Reason For Visit No Information Plan Of Treatment Date Type Action Status Referral Ordered: Referrals: [facility]. Consult ordered Referral Ordered: Referrals: Physical Medicine and Rehabilitation. Diagnostic testing ordered Referral Referred To: Hand Surgery at [facility] [place] Ordered: Referrals: Orthopedic Surgery. Hand Surgery at [facility] [place] Appointment date/timeframe: 05/15/2023 ordered Referral Ordered: Referrals: Gynecology. Evaluate and treat Appointment date/timeframe: 05/09/2023 ordered Referral Ordered: Referrals: General Surgery. Location: [facility]. Follow-up and treat Appointment date/timeframe: 01/17/2023 ordered Referral Referred To: Dr Watson Ordered: Referrals: Podiatry. Dr Watson. Follow-up and treat Appointment date/timeframe: 03/04/2023 ordered Referral Ordered: Referrals: [facility] Audiology Location: [facility]. Evaluate and treat Appointment date/timeframe: 06/27/2023 ordered Referral Ordered: Referrals: Orthopedic Surgery. Location: [facility] [place]. Evaluate and treat ordered Referral Ordered: Referrals: [facility] Podiatry Location: [facility]. Follow-up and treat Appointment date/timeframe: 10/22/2022 ordered Referral Ordered: Referrals: Podiatry. Location: [facility]. Follow-up and treat ordered Referral Referred To: [facility] Ordered: Referrals: [employer]. [facility]. Location: . Evaluate and treat ordered Referral Ordered: Referrals: L[facility]hedema Clinic. Evaluate and treat ordered Referral Referred To: Physical Therapy Ordered: Referrals: Physical Therapy. Evaluate and treat ordered Referral Referred To: [place] Ordered: Referrals: Gynecology. [place]. Location: [facility] Follow-up and treat. Surgery ordered Referral Ordered: Referrals: Orthopedic Surgery. Location: [facility] [place]. Consult ordered Referral Ordered: Referrals: Sleep Medicine. Location: [facility]. Consult ordered Referral Ordered: Referrals: Audiology Hearing and Speech. Location: [facility]. Evaluate and treat ordered Referral Ordered: Referrals: Podiatry. Location: [facility]. Evaluate and treat ordered Referral Ordered: X-RAY EXAM OF FOOT Appointment date/timeframe: 08/18/2021 ordered Referral Ordered: X-RAY EXAM OF ANKLE Appointment date/timeframe: 08/18/2021 ordered Referral Ordered: Referrals: Ophthalmology. Evaluate and treat ordered Referral Referred To: [facility] Ordered: Referrals: Podiatry. [facility]. Follow-up and treat Appointment date/timeframe: 06/28/2021 ordered Referral Ordered: Referrals: Gynecology. Surgery ordered Referral Ordered: DOPPLER ECHO EXAM HEART ordered Referral Ordered: ECG MONIT/REPRT UP TO 48 HRS ordered Referral Ordered: Referrals: Gastroenterology. Consult ordered Referral Ordered: CONTRAST X-RAY ESOPHAGUS ordered Referral Ordered: Referrals: Cardiology. Evaluate and treat Appointment date/timeframe: 05/22/2021 ordered Referral Ordered: SCR MAMMO BI INCL CAD Appointment date/timeframe: 11/28/2021 ordered Referral Ordered: Referrals: Orthopedic Surgery. Evaluate and treat ordered Referral Ordered: Referrals: Dentistry. Follow-up and treat Appointment date/timeframe: 05/23/2021 ordered Referral Ordered: DXA BONE DENSITY/PERIPHERAL ordered Referral Ordered: Referrals: Podiatry. Follow-up and treat Appointment date/timeframe: 01/30/2021 ordered Referral Ordered: Referrals: Pulmonology. Follow-up and treat ordered Referral Ordered: ECHO EXAM OF THE HEART Appointment date/timeframe: 07/11/2020 ordered Referral Ordered: TRANSVAGINAL US NON-OB Appointment date/timeframe: 04/01/2020 ordered Referral Ordered: POLYSOM 6/> YRS 4/> ABHAY ordered Referral Ordered: Referrals: Podiatry. Evaluate and treat Appointment date/timeframe: 03/03/2020 ordered Referral Ordered: Referrals: Ophthalmology. Follow-up and Treat Appointment date/timeframe: 03/10/2020 ordered Referral Ordered: Referrals: Dentistry. Evaluate and treat Appointment date/timeframe: 05/13/2020 ordered Referral Ordered: Referrals: Pulmonology. Location: [facility]. Evaluate and treat Appointment date/timeframe: 03/14/2020 ordered Referral Ordered: Referrals: Otolaryngology. Follow-up and Treat Appointment date/timeframe: 03/15/2020 ordered Referral Ordered: Referrals: Gynecology. Location: [facility]. Follow-up and Treat Appointment date/timeframe: 03/09/2020 ordered Future Order: Radiology Order Kn ee X-ray; Limited (3 views) ([id number]), Ordered on: Ordered Future Order: Radiology Order Kn ee X-ray; Limited (1 or 2 views) ([id number]), Ordered on: Ordered Future Order: Radiology Order Ti yuliana/Fibula X-ray (2 views) ([id number]), Ordered on: Ordered Future Order: Lab Order Flu Swab / Rapid Influenza ([id number]), Ordered on: Ordered Future Order: Lab Order CBC (INC LUDES DIFF/PLT) ([id number]), Ordered on: Ordered Future Order: Lab Order COMPREHE NSIVE METABOLIC PANEL ([id number]), Ordered on: Ordered Future Order: Lab Order URINALYS IS MICROSCOPIC ([id number]), Ordered on: Ordered Future Order: Lab Order JAK2 MUT ATION ([id number]) QN, PLASMA,LEUMETA(R) ([id number]), Ordered on: Ordered Future Order: Lab Order ERYTHROP OIETIN (427), Ordered on: Ordered Future Order: Radiology Order Pu lmonary function tests ([id number]), Ordered on: Ordered Future Order: Lab Order CBC (INC LUDES DIFF/PLT) ([id number]), Sent on: Sent Future Order: Lab Order BASIC ME TABOLIC PANEL ([id number]), Collected on: , Sent on: Sent Future Order: Lab Order SARS-CoV -2 Antigen Fluorescent Immunoassay (GHULAM) ([id number]), Ordered on: Ordered History Of Present Illness Encounter Date Complaint History Of Prese nt Illness Annual SUMMARY:Ppt is a 73 old woman who has been enrolled in the [facility] program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 circumference and wound on RLE has now healed. Ppt peeled off scab when she was in with OT prior to this provider viewing the area. Skin pink and intact beneath the formerly scabbed area (xeroform was most recently used). Orders to continue: (have been faxed to SNF previously) Bilateral lower extremities - apply stocking and apply Velcro wrap DAILY over the stocking. Wraps can stay on at night. Can remove for care/showering. Elevate legs frequently throughout the day. Family meeting held later today and HCP/niece Carola updated on ppt's clinical course. SW will work with HCP to assist with discharge disposition. [facility] requesting home trial. Pantera has limitations as to her room size and ability to fit furniture inside - hospital bed and recliner chair. There were also concerns with her being behind on rent but she will now be signing up with a money management service that will help her catch up. This will also assist her with not spending extra monies that could be used for rent for takeout/delivery food. Due to being behind on rent, she is not able to move rooms at the [facility] to a larger room that may better accommodate her furniture. Also reviewed with carly about ppt not yet having D&C completed for post menopausal bleeding. This was held on the day of procedure last year due to findings of bigeminy on engine monitor in preop. [facility] surgeon then referred to cardiology for clearance" for surgery. Prior to r/s she then had COVID infection and subsequent atrial fibrillation and started on anticoagulation. She then wanted to hold on the D&C. More recently has indicated wants it to be r/s again. Care team will review with Jo Ann on if this is appropriate at this time. She would have significant difficulty in lying flat for the procedure under general anesthesia. Carly is fine with putting this procedure lower down the priority list since Jo Ann is not c/o PMB at this time. Cardiolo gy - she had a recent telehealth appt with cardiology. Had missed the originally scheduled appt due to being distracted at [facility]. Domestic Violence Advocate did not feel that she needed routine cardiology f/u and could be followed up PRN. Continue on anticoagulation due to risk for recurrent afib and has elevated [id number] score. PLAN:- Velcro wraps to BLE for compression with underlying socks- ppt on wait list for [facility] - home trial for [facility] to be scheduled- ppt will be back at later this week for OT and nursing evaluation, PRN provider check in - will review her open orders to determine if she will follow through on them and can close/reschedule as appropriate Time spent - care coordination, charting, office visit - 75 minutes f/u lymphadema Ms. Ricketts is being seen in the SE clinic today for lymphedema treatment, last seen by this provider on 05/28/22. SE OT Naila Aguilar is present for the visit. nurse Ade also in to with ppt. Ppt is currently at [facility] for STR for rehab as well as lymphedema mgt/wound care. Our OT who is certified in lymphedema mgt is unable to go to the [facility] to do the treatments, therefore ppt is coming to clinic for this. Ppt is in an appropriate mood today. Was notified by SNF that she had a shower yesterday afternoon and the wraps were taken down. Ppt did not have dressings in place RLE upon arrival and the RLE wound was dried out., wound approximately 4 cm x 4cm with dried scabbed area in center. Lymphorrhea has improved on LLE, LLE continues to be reddened, not warm/hot. Skin on bilateral posterior knees stable - continue to antifungal powder and wraps will go to below knees to allow posterior knees to have air exposure. Not able to apply interdry fabric since not able to keep it in place. Ppt not SOB worse than baseline. Alert and oriented. Well-groomed and cooperative. Happy to have the Velcro wraps in place and that her legs are of decreased circumference that she can wear the wraps under her pants. Orders: Bilateral lower extremities - apply stocking and apply Velcro wrap DAILY over the stocking. Wraps can stay on at night. Can remove for care/showering. Elevate legs frequently throughout the day. R leg - DAILY - cleanse anterior tibial area/tarango with NS/sterile water/wound wash, pat dry, apply xeroform dressing to open areas, cover the open areas/xeroform with 4x4 gauze, wrap with parish, secure with tape, NO TAPE ON SKIN. Measure wound weekly and notify if new areas arise. PLAN:- Velcro wraps to BLE for compression with underlying socks- Antifungal powder to R posterior knee crease. - ppt continuing at [facility] for STR. Plan for family meeting on 06/04/22. - ppt on wait list for [facility] - orders faxed to [facility] - ppt will be back at on Saturday for OT and nursing evaluation, PRN provider check in Time spent - care coordination, charting, office visit - 30 minutes skin f/u Ms. Ricketts is being seen in the clinic today for lymphedema treatment. SE OT Naila Aguilar is present for the visit. SE RN Clear also in to with ppt. She is currently at [facility] for [facility] for rehab as well as lymphedema mgt/wound care. Our OT who is certified in lymphedema mgt is unable to go to the SNF to do the treatments, therefore ppt is coming to clinic for this. Ppt is in an appropriate mood today. Was wearing the Coban 2 wraps upon arrival. Skin remains dry BLE, decreased lymphorrhea drainage/crust on both sides. Area on RLE anterior pretibial area has changed and appears larger. She does have some deep redness on LLE mid tarango to ankle. Possible blood blister/abrasion L lateral foot - no redness, drainage, pain. She is not sure how this occurred. Also noted deep crease in posterior aspect of R knee. Area cleansed by team and antifungal powder applied. Overall, ppts legs appear less swollen. SE OT assisted ppt with washing her legs and SE RN completed wound care on RLE. Ppt tolerated re-wrapping with Coban 2 for BLE. RLE pretibial area:4.5 cm x 1.5 cm x 0.1 cm, granulation at wound bed, started bleeding with cleansing, irregular wound borders. Wound cleansed with normal saline, puracol and clean dry dressing applied over the wound, then followed by the Coban 2 wrapping by OT. Has baseline VIRGEN due to multiple reasons. In good spirits. Thankful for the assistance by the care team. She was able to trial out power chair again today while at . PLAN:- ppt will keep Coban2 wraps in place for and be back at on Saturday for skin care, re-evaluation. Antifungal powder to R posterior knee crease. - ppt continuing at SNF for STR. Plan for family meeting on 06/04/22. - ppt on wait list for [facility] Time spent - care coordination, charting, office visit - 30 minutes OV SNF admission Seen for SNF adm ission along with PCP, Rajwinder Little PROCEDURES RN. Ppt was admitted from home for wound management. Ppt has chronic lymphedema, was unable to manage this at home and has open blisters on her left upper leg. ExamAlert, well groomed no apparent distressCalm, seems settled in. Denied painSpeaking in full sentences, no difficulty breathingFull assessment could not be performed as ppt was playing bingo, did not want to leave activity. Discussed ppt with her nurse. Nurse reported no concerns, except ppt asked for multiple sugars with her coffee and oatmeal this morning.I was not able to observe ppt's wounds, however her nurse stated she had an open area on her left leg the size of a quarter. Reviewed nursing notes which describe the following open blisters: L upper tarango open blister L2cm x W2.8 cm, L lower tarango L2.3cm x W3cm, R upper tarango L3cm x W2.5cm as well as L2cm x W1.7cm, R lower tarango L1cm x W1.1 cm as well as L1cm x W01.cm. Orders for arterial wounds in place: NS cleanse, calcium alg, gauze, parish wrap. Discussed new orders for Nystatin cream and protein supplement (for wound healing) with staffWill check CBC, BMP next week. skin f/u Ms. Ricketts is being seen this morning in the clinic for skin concerns. She is a fair to good historian depending on her mood/behavioral health issues. Seen last by this investigative writer on 05/02/22.Due to issues with her lymphedema BLE, inability to maintain elevation of her legs, SOB, mobility, dietary indiscretions, behavioral health issues, she is unable to adhere to medical recommendations at her [facility]. Care team is working on transferring her to [facility] for rehab for medical management of her BLE with dressings and PT/OT to work with her transfers/ADLs. Ms. Ricketts is open to this plan and agreeable to it - let her know that might not have an open bed until early next week. PASSR is pending. Care team has been trialing multiple wound care modalities for her BLE without significant improvement. Unna boot was used over weekend but she was not able to tolerate it. For now - will use calcium alginate to the open areas, cover with gauze, Gregoria wraps even though it is not the optimal compression. We have been trying to get her in with lymphedema clinic but still have not heard back with an appt. She DENIES CP, has known SOB which she reports is not worse than her usual.EXAM:Alert and oriented, in cooperative mood today, well-groomed, ambulating with her wheeled walker easily SOBOE (which has been her baseline), no cough, fair amount activity intoleranceBLE - continued lymphedema - not at ankles or feet, chronic skin changes 2 blistered areas RLE and one on LLE - popped blisters- well demarcated borders, result of lymphadema. Areas cleansed, Ca alginate dressing over the RLE blistered areas. Covered with dry clean dressing and gregoria wrap for compression. Legs do not appear cellulitic.LLE - opened blister - 1.7 cm x 2.5 cm x 0 cm deepRLE opened blister - 1.8 cm x 3.5 cm x 0.1 cm deepRLE opened blister - 2.5 cm x 3 cm x 0.1 cm deep PLAN:- wound care and compression for BLE, nursing to continue to follow, for now she is limited in what she can tolerate for compression, trying to get her into lymphedema clinic- will follow up in clinic for continued wound care while waiting for bed at SNFTime spent - care coordination, charting, office visit - 45 minutes urgent care - f/u skin, legs Ms. Ricketts is being seen this morning in the clinic for walk in visit per nursing for skin concerns. She is a fair to good historian depending on her mood/behavioral health issues. She is in good spirits today, cooperative.Ppt was recently on a course of antibiotics for LE cellulitis and nursing has been following regularly. Today nursing reports blistered areas on BLE that are draining and there are also some intact blisters. Ppt is unable to consistently elevate her legs to an appreciable level due to broken recliner chair. She has recently gotten an ottoman to use in place of the recliner elevating her legs, but this is not optimal. She also continues to have a tendency to order food for delivery which often includes large grinders, large pizzas. She reports that she does not add salt to her foods but that the [facility] adds a lot of salt to the foods. She denies today that she has been ordering out lately. She also has a hospital bed and reports that the she sleeps in it at night and knows to keep her legs elevated. She DENIES CP, has known SOB which she reports is not worse than her usual.EXAM:Alert and oriented, in cooperative mood today, well-groomed, ambulating with her wheeled walker easily SOBOE (which has been her baseline), no cough, LSCTA diminished, fair amount activity intoleranceBLE - continued lymphedema - not at ankles or feet, chronic skin changes but redness is improved from previous visits when was on antibiotics, 2 blistered areas LLE - intact; RLE popped blister- well demarcated borders. Areas cleansed, medihoney applied over the RLE blistered area. Covered with dry clean dressing and Coban 2 wrap for compression. LLE - gauze pads applied and wrapped with Coban 2. PLAN:- wound care and compression for BLE, nursing to continue to follow this week, unclear if ppt will be able to tolerate the compression, she is amenable to this and wants her legs to improve- can give 1x dose Lasix today in day program to see if it improves her SOB- will follow up in clinic in near future for next steps, continued wound care - she will be back at [facility] tomorrow for shoe clinicTime spent - care coordination, charting, office visit - 75 minutes OV Ppt seen for pro vider check of right lower leg wound. Ppt reports she had a blister which opened up. She was started on cephalexin yesterday.Observed approx 1.5 x 1.5 cm opened blister to right lower tarango. One other <1 cm blister has opened up as well. Not painful. Area around them is dark pink, no clear margins.Continues to have significant edema. Wound care provided by primary nurse who will follow up with home visit over weekendPpt reminded to elevate legs cellulitis, tele PPT seen today via telehealth at nurse request. PPT has marked lymphedema bilaterally with intermittent bouts of cellulitis. She continues to remain non compliant with diet and often orders take out such as pizza. Denies global sepsis symptoms. endorses redness, pain, tenderness to RLE with seeping edema. Nursing applying calcium alginate every other day. new order for keflex x7 days. She has responded well to this in the past. plan: keflex 500mg Q6 x7 days, provider face to face visit tomorrownursing to follow with wound care, orders placed PPT seen with PPT/HCP with permission via [employer] video platform from 1221pm to 1230pm. Two identifiers (name and ) were used to confirm PPT identity. PPT was offered an office visit and preferred televideo for today's visit. Televideo is safe and appropriate for today's visit. PPT location: [place], [place]. Provider location: [facility]. The patient encounter today occurred during the need for social distancing. I personally spoke to the participant as well as primary nurse. Post SNF visit Ms. Ricketts is being seen this morning in the clinic for post SNF discharge. Discharged from [facility] yesterday after a SNF stay. She is a fair to good historian depending on her mood/behavioral health issues. 02/19/22- [facility] then [facility] 02/23/22-03/15/22Admitted to [facility] for presumed cellulitis, worsening lymphedema and then discharged to [facility] for rehab since needed to be more independent to return home. Did well in rehab and desirably lost some weight (since she was not ordering out). Discharge was delayed due to her recliner chair being broken and the need to keep her legs elevated and ability to maneuver around in her small room at [facility]. No medication changes from SNF stay, her trazodone had been recently stopped prior to going into the hospital most recently. Today she is in a fair mood, able to later calm her down a bit more to have a conversation. She was upset at the [facility] while trying to check blood pressure and told the [facility] that My time is important and refused her labs. She reports today she was very upset yesterday since the transport van arrived > 1 hr late for her discharge back to [facility]. She then mentions that her niece Carola and Carola's boyfriend came over last evening to help her rearrange her room. She states went down for meals since arriving home and did well. Slept ok last night. Was able to get herself ready this morning to come to . Again she reports that she doesn't like taking too many pills. We have discussed this before and will continue working on this. She continues to refuse to see psychiatry for medication adjustment from that end. She is agreeable to having her echo on Saturday that is already scheduled. She also reports that she would like to continue to work on having her [employer] procedure r/s - had been postponed previously. She mentions that they did call her but she did not schedule it since was in the SNF. She is also agreeable to continue to work on scheduling sleep study which can continue to help evaluate for her SOB.She reports no other concerns at this time, no pain concerns. She doesn't plan on staying for the day program today and only wants to do days when a fellow ppt (from her old [facility]) is attending. She was very particular on her request and for her timing for transportation on - wants to be back at the [facility] in time for bingo on certain days. EXAM:alert and oriented, anxious and then gets more SOB but able to calm down and have a conversation. Well groomed, morbidly obese, Pickwickian in appearancesclera nonicteric, conjunctiva not injected RRR, speaking full sentences, noted mild to mod SOB with ambulation and anxiety but resolves when calmer, LSCTA but very diminished, poor air movementCV - heart rate regular, difficult to hear since speaking through this portion of the exam, chronic BLE edema +3-4 with chronic skin changes bilateral pretibial areas not warm or tender, feet and ankles not edematousAmbulating with wheeled walker PLAN:- updated labs today - she eventually agreed to have done- 03/20/22 echo with PRN Definity contrast - Sat and possibly Fridays- will continue to follow for r/s TEACHERS' AIDE surgery appt - she is still agreeable to have sleep study completedTime spent - care coordination, clinic visit, charting - 60 minutes SNF d/c Patient is seen this morning in anticipation of discharge later today. She has no specific complaints and no concerns. She is looking forward to going home. I spoke with the nurse, she too had no concerns.The patient had a home visit at her assisted living yesterday and performed well enough that it is felt she can return home.[facility] facility course:Patient was admitted to [facility] on 02/23 after brief hospitalization at [facility] for lymphedema and concern for cellulitis. While in the hospital imaging was done to exclude DVT as well as pelvic pathology potentially compressing venous/lymphatic return and thankfully none of it was evident.Medically, the patient did well through the course of her halfway facility stay. She completed a course of topical corticosteroids for her venous stasis. Colace was added for complaint of constipation. The trazodone which had been a limited outpatient basis with briefly in play and patient reported fatigue and it was therefore stopped.Consideration was given to change in antihypertensive, namely stopping the calcium channel paula and changing her Toprol to carvedilol however, as blood pressure remained relatively stable I opted against this.Patient had roughly 10 pound, desirable weight loss while in rehab. Discharge was somewhat delayed due to concerns about her ability to negotiate her assisted living as well as the fact that her recliner necessary for leg elevation is hopelessly broken. That being said, on the home visit it was determined that patient is able to elevate her legs in her hospital bed and in common areas.Most recent labs from 03/05 showed WBC of 3.4, hemoglobin of 12, platelets of 218. Her BUN is 14, creatinine 1.11, estimated GFR 49. Glucose was 164. LFTs were normal. Medications during the hospital included gabapentin 100 mg twice daily and ferrous sulfate 325 dailyROS:No headache or vision changeNo dysphasiaNo current chest pain or palpitationsNot short of breath or coughingNo abdominal complaintsNo urinary complaintsNo pain complaintsMood stable, she is excited at the prospect of returning to her assisted livingExamination:Most recent weight 358 on the Blood pressure 113/66, temperature 96.4, pulse 67, respiratory 18, oxygen saturation 96%. Blood pressure has been variable with majority of the readings being fairly well controlled but occasional high readings.Morbidly obese, middle-aged woman sitting in her recliner in no acute distressShe is normocephalic and atraumaticSclerae anictericHeart tones are distant but regularLungs sound to be clear bilaterally within the confines of examination given her body habitus and positioningShe is free of gross abdominal discomfortExtremities are stable with regard to edema/lymphedema.Awake, alert, attentive SNF follow up Patient seen tocarole clarke for halfway facility follow-up. Nurses tell me that she is very anxious to leave as there is COVID in the building and she is anxious about that.Patient expressed less trepidation about this when talking to me although ultimately she did mention it. She says that she feels that she is ready to go and specifically sites of the fact that part of the hospital physicians told her she would need 2 weeks of rehab. I told her that from my perspective medically she was quite stable however, issues remain with regard to her disposition given the broken chair as well as difficulties navigating the room. She acknowledged both but had solutions that seem far from realistic (suggesting that she should get a chair for $200-$300, which I told her I did not think was particularly realistic. She did say she is not physically anxious to remain in the nursing facility until she has a new apartment, which I told her that my suspicion is the program is not particularly interested in either.She was weaned off trazodone and should complete the wean tomorrow, as best I can tell from orders. We have not endeavored to change anything with regard to antihypertensivesShe has no physical complaints.ROS:No headacheNo acute vision changeNo dysphasiaNo current chest pain or palpitationsNot short of breathNo GI complaintsNo urinary complaintsNot having lower extremity painExamination:Most recent weight (which is quite suspect as there is a nearly 55 pound loss in the span of less than 2 weeks) was 314.2 poundsBlood pressure 135/69, temperature 97.5, pulse 66, respiratory 18, room air oxygen saturation 97%.Blood pressures have been well controlledOverly obese, middle-aged woman lying in bed in no acute distressShe is normocephalic and atraumaticSclerae anictericHeart sounds to be regular, suspect faint murmurLung exam difficult given habitus but free of obvious adventitious breath sounds. Symmetric, fair air movementAbdomen obese, soft, grossly nontenderExtremities are without clubbing or cyanosis. It is somewhat difficult to see her legs as she is wearing pants that do not lend themselves to examination. Her feet are devoid of any pitting edema which has been a problem. Distal legs which I am able to see have chronic lymphedema but no significant pitting. There is minimal asymmetry with regard to erythema which I think is chronic and the right lower extremity has slight erythema, left none.She is awake, alert, generally attentiveShe moves all extremitiesSpeech is fluent. There are no obvious hallucinations or delusions and most of the content of her discourse is reasonable however, I think there is some irrational optimism regarding ability to fair with leg elevation and a chair. SNF f/u 71-year-old femrigoberto tang with a past medical history of hypertension, A. fib on Xarelto, asthma, depression the setting of bipolar disease, GERD, ongoing vaginal bleeding. Jo Ann is seen today for a SNF f/u. No significant issues reported by nursing staff. Jo Ann had concern as to when she will be going home. She states that she is ready to go home with home rehab. She denies legs pain, abd pain, dysuria, chest pain and fever/chills. She did complained of fatigue and how quickly she gets tired. Overall, she states she feels good. SNF follow up Patient being se en in follow-up today. While I know the patient tangentially I have not cared for her previously. Patient was at [facility] from 02/19-02/23/22. She was admitted to [facility] for further care.She reports that overall she is feeling reasonably well. Her legs are not hurting her. She has many questions regarding her testing at [facility] which I told her I would clarify. She spoke of an incident with a staff member at the facility last night in which an aide apparently was not terribly respectful. She says she has already spoken to the labor relations director about this.Nurse tells me that patient is desirous of Colace at roughly 11:00. The patient had a rather tangential story of how Stoeckel's in the past but then it was changed to a different color. Unclear if she is referencing a change in medication. In any event, she implies some degree of constipation and would like to Colace back. I have so ordered.With regard to her legs, they are not currently painful. It is extremely hard to tell if the edema is any better or worse. I made mention of the fact that I believe she has been referred to lymphedema clinic at [facility]. Nurse tells me they do not have appropriately sized ESVIN stockings. [facility] to Gregoria wraps daily in a.m. and remove at bedtime.Had questions about her Breo in the context of my questioning her about frequency of albuterol use. Patient wants albuterol bedside which I told nursing staff but did not have objections to assuming the past their requisite evaluationROS:No headache or vision disturbanceNo dysphasiaNo current chest pain or palpitationsNo shortness of breath or coughNo GI complaints save for constipationNo urinary complaintsIn general not having pain.Makes mention of her feet, I told her at this juncture they do not look particularly swollen, although legs do.Reports LUE>>rightSays she is fatigues by day, we discussed Ddx including KELSEY. I told her med may be contributoryDosage form of Am seroquel changed to XR, per home regimenChest x-ray 02/19:Central vascular markings are mildly prominent. Linear atelectasis or scarring of lingula unchanged. Underpenetrated. Borderline cardiomegaly.X-ray right foot: No fracture or bone lesion. Plantar calcaneal spur, pes planus, mild degenerative change of the midfoot, soft tissue swelling around the foot.CT pelvis: Mild vascular calcifications. Degenerative changes are visualized lumbosacral spine.Ultrasound bilateral lower extremities:No DVT. Limited evaluation of the calf veins but visualized portions are patent.Doppler left upper extremity. No evidence of DVT.Echocardiogram:EF 60-65%. Indeterminate diastolic function. Left atrium mildly dilated. No gross abnormality of her aortic valve, mild thinning. Mitral valve grossly normal. Trace MR. RV poorly seen. RV mildly dilated. RV SF appears preserved. Right atrium mildly dilated. PA systolic pressure estimated at 41 mmHg. CVP estimated at 8 mmHg, mildly elevated. No definite change from June 2020.EKG: Sinus rhythm. An anterior infarct, age undetermined. No change compared to January 2022Exam:Morbidly obese, middle-aged woman sitting in her chair in no acute distressWeight on the was 368.8 with recent blood pressure was 121/58 however significantly higher blood pressure yesterday morning and her blood pressures are variable with systolics ranging from 110-164., Consistently afebrile, pulse 60s and 70s, respiratory rate 18, and saturations ranging from 95-100%.She is normocephalic and atraumaticSclera anictericMucosal membranes decently hydratedHeart sounds to be regular with S1 and S2. Lung exam is difficult but without obvious adventitious breath soundsShe is morbidly obese limiting abdominal examination in addition to the fact that she is sitting in a chair. Not grossly tenderExtremities could not be appropriately examined as she was fully clad. I was able to see both feet and they have very minimal, if any swelling. Proximal to the ankles I was able to see skin with a limited fashion. There is some residual erythema but overall not impressive for cellulitis or for acute stasis dermatitisTrane is awake, alert. She is a bit tangential.February 26 labs show WBC of 3.6, hemoglobin 10.3, platelets 197Chemistries normal with estimated GFR greater than 60. Glucose 102. Calcium is 8.4, albumin 2.9, total protein 5.5. LFTs otherwise normal. SNF f/U 71-year-old jorge luis tang with a past medical history of hypertension, A. fib on Xarelto, asthma, depression the setting of bipolar disease, GERD, ongoing vaginal bleeding. Jo Ann is seen today for a SNF f/u. No significant issues reported by nursing staff. Miss Ricketts seen in recliner without compression garment on. She denies leg pain. She still endorses some neuropathy which she said has improved. She had no complaints. She tells me she walked to the bathroom and back with PT. Last Bowel movement was Saturday according to [facility] SNF admission 71-year-old jorge luis tang with a past medical history of hypertension, A. fib on Xarelto, asthma, depression the setting of bipolar disease, GERD, ongoing vaginal bleeding. She is seen today to be admitted in [facility] unit A. She is status post admission 02/20 to [facility] for worsening bilateral lower extremity pain, especially of her on her feet, and concern for cellulitis with failed outpatient management. ID was consulted and determined cellulitis was unlikely. It was determined that her skin changes were more consistent with lymphedema secondary to venous stasis. DVT was r/o. Her other labs were unremarkable. CT of pelvis for possible lymphatic obstruction was unremarkable. Compression garment was recommended and rehab at a skill facility was recommended. Patient seen in bed without compression garment on. She states that she needs a nylon like compression garment because the one with the Velcro is too bulky for her and makes it difficult to wear her pants. She denies chest pain, leg pain, abdominal pain, fever, chills. She endorsed FRAN, and paresthesia of the sole of her feet which she verbalized improvement since the start of gabapentin.She reported some skin rash under breast, abdominal folds and b/l groin. check in, post fall Ms. Ricketts is being seen this morning in the clinic for RLE redness and fall overnight. She is a fair to good historian, can be behavioral and tangential. Able to keep her on the more calm side today. She was also seen last week on 02/08/22 by this provider for post hospital visit. She sustained a fall overnight and was reported to arson investigator this morning. She reports that she fell in her room around 2-3 a.m. standing out of bed and fell to the floor. She did not have her ERS button with her since was on bedside table and she reports that the string had broken so didn't have it with her. She was not able to crawl over to the table to get it. States was on the floor until around 7am when someone heard her yelling. EMS was used to assist her back up to her wheelchair. She reports no injuries other than bruising on her L upper medial arm when EMS helped her stand up. Reports not in pain now. Reports was not dizzy when this occurred, and reports that dizziness is improved overall. Sustained bruising L upper inner arm from EMS when standing up; now upset about this and that they got her up incorrectly.She indicates that she also is dealing with increasing redness on her RLE, was treated recently with antibiotics. Was seen last week and this area is now redder than previous. Since going into weekend, will restart her on antibiotics. She also reports that her electric recliner is not working and the legs do not elevate. SE PT present for part of the visit today and will go out and see her chair. She needs to be able to elevate her legs to help with her cellulitis.We also reviewed her recommendation for cutting back on sodium in foods. Reports does not add salt to foods but then I reminded her that she has been ordering delivery (grinders, eating almost a whole pizza). She indicated oh yeah. Reminded her to cut back on take out/delivery and to stay away from soda. She is worried that she is tired and reviewed with her that recent labs for thyroid within range. She is still agreeable to sleep study for which KELSEY could be contributing to SOB, fatigue, BLE edema. She also reports vaginal itching and has had yeast infections before. 1x order diflucan has been sent in to pharmacy and she has taken this before. She will let us know if not improved in a few days after the medication. EXAM:alert and oriented, had gotten her hair done this week, well groomed, in good spirits, sitting up in transport wheelchair in NAD, obeseRRR, speaking full sentences, no cough, LS clear/diminished poor inspiratoryHR regular, +2-3 BLE edema per her baseline, no edema on her feetUp to bed from wheelchair with rocking back and forth x3 to get up to bed, unsteady on her feet. Skin - RLE area of increased redness/warmth (compared to last week's visit) closer to ankle, no redness/erythema on foot, very thin ankle. No drainage, nontender. Outlined on her leg. Chronic skin changes LLE. Area of bruising/ecchymosis L upper medial arm from EMS this morning. PLAN:- PT to go over to her room to check on her recliner chair; ADDENDUM: PT indicated that part of the recliner is broken and does not elevate the legs. He was able to get a [employer] tech out there for next week to repair it since under warranty. Ppt needs this to be able to elevate her legs.- START doxycycline 100 mg - take 1 tab PO BID x 7 days for RLE cellulitis, needs to elevate, use compression (which she does not use); first dose given at SE from [facility]- she will start coming back to the program 1 day/wk - sleep study pending- [facility] f/u pending- ortho f/u pending for hand that had been put on hold previously- care team will continue to followTime spent - care coordination, clinic visit, charting - 45 minutes post hospital visit Ms. Ricketts is being seen in the clinic today for post hospital visit. She is very upset today due to transportation being late in picking her up. She also was able to see podiatry upon arrival before coming to the clinic. She is upset about the supervising bailiff not taking enough off of a callus on her L foot. She is limited in her exam and ROS today due to her mood. [facility]. Ad[facility] to floor and also being treated for cellulitis. Torsemide reduced with improvement on her dizziness and started on antibiotics for the cellulitis. Discharged back home yesterday. As noted above, she is agitated. Did not want orthostatic vitals completed. She is upset about being on too many medications. Stating not taking trazodone and is refusing it. She also states that the Breo is only lasting 2 weeks and not 4 weeks. We had worked on this in the past and will have triage look into this. She was taking it incorrectly in the past but this has been rectified.She is finally agreeable to sleep study since we have been discussing this in the past. 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 She was going to have consult on this previously, but other medical issues took precedence. She would like to go to ortho for this. Podiatry - completed 02/07/[address] [facility]:alert and oriented, well groomed, upset because transport was late in picking her up, sitting up in transport wheelchair in NAD, obeseRRR, speaking full sentences, no cough, LS clear/diminished poor inspirator HR regular, +2-3 BLE edema per her baseline, no edema on her feetSkin - RLE area of cellulitis appears stable, no redness/erythema on foot, very thin ankle. No drainage, nontender. Chronic skin changes LLE. toenails in good condition - just had podiatry visit PLAN:-DISCONTINUE trazodone per ppt request- [facility] re-referral- Sleep medicine referral- triage to f/u on Breo fills - continue with routine podiatry visits- care team to continue to follow up with her Time spent - care coordination, clinic visit, charting - 60 minutes Biannual - off site [facility] Ms. Ricketts is a pleasant 71-year-old female who has been enrolled in the [facility] program since 01/20/2020 and is being seen for her biannual exam. She can be a poor and difficult historian due to behavioral health issues, easily distractible when she is anxious but is relatively calm today. She was supposed to come to clinic for her appt earlier this week but reports that she wasn't feeling up to coming in. Reminded her of importance of coming in for her clinic appts and she indicated understanding. HOSPITALIZATIONS/ER/SNF visits - 3 ER visits in July 2021 and none since then. One of the ER visits in 07/2021 was for behaviors and included Section 12 by this provider from the day center site. She does not come to the [place] site for the day program, transported by transportation. M edications will be reviewed and reconciled by caregiver services home. No reports on refusing medication. Bubblepacks. She previously was having some issues with swallowing her pills and seemed to be related to GERD. She was started on increased PPI and reports has no major swallow issues - reports that she takes her pills in applesauce. ADVANCED DIRECTIVES:HCP 07/11/2020 - Primary is niece Carola, alternate is her brother Kojo. HCP not invoked. MOLST 07/18/21 - DNR, DNI, + transfer to hospital, undecided dialysis, no artificial nutrition, + IV fluids. Matters Most - difficult to elicit, likes living at [facility] GYN - she has been followed by [facility] for postmenopausal bleeding. She was having recurrent symptoms and was scheduled for D&C in April but then it was cancelled on the day of the procedure due to bigeminy on EKG. This was then to be r/s but not yet done so due to COVID. Discussed again with her today and she reports no issues with vaginal bleeding and does not want to f/u on this for now. CARDIOLOGY - initially had been documented with sandra, then later found to have afib when diagnosed with COVID19. Cardiology has also recommended sleep study. She is on anticoagulation for her afib, beta paula for rate control. Does not like wearing compression stockings b/c can't get her pants over them. Reports that her edema has not been worse. Has baseline multifactorial SOB that has not worsened. She was ordered to have updated echo with contrast (due to body habitus) but has not yet been scheduled. PULMONARY - Has multifactorial SOB. Last saw pulm on 03/14/2020 - in office spirometry showing normal readings. Pulmonary ordered PFTs and 6-minute walk test to objectively assess asthma diagnosis and exercise limitation; IgE, sleep study, Echo to assess elevated PASP and heart function, dietary and fluid restriction. She was to follow up in 3 months with them. She cancelled her echocardiogram previously and had in 06/2020 - was very limited study and unable to obtain PASP, normal EF. New echo was ordered with IV contrast PRN but has still not been completed. She has still not yet had her PFT testing and we discussed importance of this. She is reluctantly agreeable to this. She adamantly declines having sleep study completed. Reports that her breathing has been better for her overall. Only needs to use her nebulizer machine a few times per month. Reports adherent with her respiratory inhalers. She is asking about her Breo inhaler and that it only lasts 2 wks at a time (but it is for a 30 day inhaler). Will have home care review inhaler use with her to see if she is using it incorrectly (double inhalations vs 1 x/day) Behavioral health - Her behaviors and mood have improved over the last few months, had been priscilla due to isolation from COVID, had roommate issues. There was danger of her losing housing if she was not able to manage her behaviors, but this has improved. Participating in the activities at her [facility]. Has not come to the day program recently. She has recently been seeing an in person female counselor but we do not have clinical updates at this time.Vision - seen on 03/10/2020 with 1 year follow up that did not occur; she reports that she has known cataracts OS>OD, has bifocals; she will see optho when they come to the clinic Dental - has lower plate that she rarely wears, upper denture; had appt on 05/13/20 but cancelled since reported no dental issues during COVID pandemic. Has not yet seen but will get her in with dental when they come to clinic. Podiatry - UTD, last saw on 06/28/21, return 3-4 months; in the note, provider encouraged more supportive shoes; pes planus; has proper ortho shoes provided by . Will get her to see podiatry at . Immunizations - UTD on seasonal flu vaccine, shingrix, Tdap, COVID19 (3 doses), pneumonia vaccines. She has not received a 2nd COVID19 booster yet - had COVID19 in July 2021.Hearing - seen by ENT in 02/2020 mild hearing loss but no need for hearing aids, she doesn't feel she needs screening right now; can see at clinic for routine screening PRN [facility], reports good appetite; has been known to get takeout/delivery but seems to have been doing it less frequently; has been told to watch her Na; she generally cuts her food small and sometimes doesn't wear her lower partial denture; feels GERD is relatively well controlled with the medicationsMind/Memory/MOCA - 12/2020 - ; 01/2020 (points off for visuospatial, language, abstraction, delayed recall); feels memory is good - gets worse when she is anxious/feels overwhelmed or doesn't get enough sleep, feels her memory is pretty good Mobility/Falls - uses wheeled walker for ambulation; has transport wheelchair for distances, reports no recent falls. She is happy about this. 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 Uses scooter if she is out at store. Incontinence - reports no issuesSleep - reports no issues. She has been overdue for sleep study and we had gone back and forth on if she could complete. Appts then were pushed off due to COVID. Now she refuses to have the sleep study completed. Has a hospital bed which helps with breathing. Reports no breathing concerns at night, no nocturia. Mammogram -last in 2019 - normal, she wanted to hold off in 2019 and then decided to have completed in 2020, still not yet completed - appts had been pushed off due to COVID pandemic, now wants to HOLD on this and she will think about it. Reports no breast concerns. DEXA - reports had previously but we do not have copy; this has been ordered but was never completed, she wants to hold on the testingColonoscopy - normal previously in 2017, due in 2026Musculoskeletal/Pain - can have issues with bilateral knee pain and reports is at baseline; can also have headaches occasionally; has PRN APAP. In the past has reported cramping in her R hand index finger/trigger finger and that she was supposed to have surgery on this and that her R index finger can get stuck in the down position. States had gone to ortho in the past and they had recommended it. She was awaiting ortho consult that did not yet occur (COVID pandemic). Reviewed with her again today and she wants to hold on the ortho consult - states not a current issue for her. She has a R hand/wrist brace which she does not always use. Skin - reports no concerns at this time; has had issues with redness/irritation in her groin and under her breasts (mostly L breast) - reports is good and uses the powder that we supply. She did not want this to be viewed today. She has had issues with cellulitis on her lower legs in the past, has most recently been stable. She has seemed to be better with elevation - has her recliner chair. She does not want to wear LE wraps since she feels that they don't have ones that she can get pants over them. Diagnose s reviewed. All chronic conditions in this assessment are stable unless stated otherwise.PLAN:- due for updated PFTs - had previously been ordered by [facility], she is agreeable to this- needs sleep study- had previously been ordered by [facility] but she is adamantly refusing this- updated labs will be collected next week 01/24/22 0930 pickup. She was reminded to drink extra fluids at breakfast that morning since she can be a difficult lab draw- she would like to hold with [facility] re: reschedule of D&C- mammo and DEXA requesting to be on hold by her has yet to be completed - ordered previously- dental pending - can see when they come to [facility]- podiatry at [facility] - due for appt at - reminded to continue with elevation of legs, compression (which she does not like to wear)- she wants to hold on pending consult for R hand pain/decreased ROM- pending ophthalmology - overdue, can see at [facility] canceled appt Ppt was to be se en today in the clinic for her biannual appt, but she canceled. This will need to be r/s. R foot pain Ms. Ricketts is being seen in the clinic today on her day for f/u RLE/R foot pain. She is a poor to fair historian at baseline due to her behavioral health issues. Today she was here for her and reports by members of care team indicated that she was pressured today with her speech, loud in the day room, holding court in the day room. However, she was more pleasant overall and not as aggressive.She has been being followed for R foot/RLE pain and recent xrays showed no fracture. She continues to have issues with bearing weight on this extremity and is now using a wheelchair instead of her wheeled walker. She indicates that there was no one to help her get downstairs today for her transportation and the flocculator operator pushed her in the chair. She was upset about this and continued to perseverate on this issue. MS Teams meeting with KENROY Draper while in the clinic today during this visit and ppt was trying to show ppt how she could mobilize in her chair in clinic room. She c/o R hand pain that makes it difficult for her to use that hand with regards to using it for her wheelchair. She is also complaining today of worsening pain in her RLE pretibial area. "I probably need antibiotics again. Area does appear to be more erythematic today, warmer, difficult to fully assess since she would not allow her pants to be rolled up all the way to observe. R pretibial area very tender to light touch, yelling out when it was touched for examination. Labs were completed today at since she has not yet come into the clinic after her hospital stay. Repeat labs obtained to review and if renal function stable, will have her be on the full dose DOAC (currently on renal dose). EXAM:Alert, oriented to person, knows that she is at [place], stating that it was but then indicates that no, right, its Saturday. Pressured speech and difficult for provider to discuss with her. Speaking out loud even when provider in other office. RRR. Speaking full sentences, no cough, did not stop talking continuously and did not have SOB LSCTA diminished, difficult to fully ascultate since would not stop speaking in order to listen to her lungsCardiac - HR regular (hx afib), 1-2/6 systolic murmur, BLE chronic edema - R pretibial area has chronic skin change, now more erythematous/warm/tender to touch, not allowing full examinationR foot - abrasion on dorsal area of R foot along with some ecchymosis. Upset that she has bruising from her blood thinners. PLAN:- START Keflex 500 mg PO Q6H x 7 days, first dose given at today and has 2nd dose for this evening in case pharmacy does not deliver - PT will meet ppt at [facility] this afternoon upon her arrival from to see how she mobilizes around the [facility]- reminded on elevation of legs, compression since can put her at further risk of cellulitis; her recliner was fixed by PT last week to allow her to elevate her legs; ppt has been refusing compression and OT working on other modalities of compression wraps- 09/06/21 10:15 a.m. cardiology appt; she was given appt card for this and business office notified- due for echocardiogram with contrast which has been ordered previously; they are not scheduling these regularly due to COVID pandemic- mammograms are on hold due to COVID19 and are not able to start to be scheduled until 09/04/21- due for updated PFTs - had previously been ordered by [facility]- needs sleep study- had previously been ordered by [facility]- dental pending - can see when they come to clinic- podiatry in 3-4 months - she is ok to see when at clinic- pending consult for R hand pain/decreased ROM- pending ophthalmology - overdue, can see at clinicTime spent - care coordination, office visit, charting - 75 minutes f/u foot Ppt did not go t o the ER yesterday/last evening after she stated that she would go. She was also to come to today for the day program but then she declined to come in. [facility] stat xray then ordered of R ankle/foot with no acute findings. Was ordered to be done at but since she did not come in, was completed at her [facility]. call manager updated that ppt may have issues over weekend. She has many behavioral issues also. rehab team is continuing to follow. She is due to come in to on Saturday for her regular day.Nursing, provider, and SW will also continue to follow. MS Teams video - urg ent foot pain, post hospital Ms. Ricketts is being seen on an urgent basis this afternoon via MS Teams for virtual video visit. Ppt was to be seen tomorrow in the clinic for post hospital visit, but RN had concerns upon check in for ppt this afternoon at [facility]. Ppt was to be seen last Saturday08/11/21 but did not want to come to that day for day program and post hospital visit. She was then scheduled to be seen on Saturday08/15/21, her next day, but was back in the ER at [facility] s/p fall. She is a fair historian depending on her anxiety and mood at the time. Today she is in a good mood, talkative, somewhat difficult to keep on track/tangential, but better than previous visit with her. Able to get fair amount of information for a focused ROS today. [facility] 12 due to behaviors. When in the ER was rude, racist, aggressive and difficult to redirect. Admitted for psychiatry evaluation and possible cellulitis RLE (failing PO abx). When up on the inpatient floor, she exhibited behaviors in the hospital such as being accusatory of staff stealing her wallet while it was right next to her, other times throwing inhaler at nursing. Her roommate needed to be moved out due to her disruptive behaviors. Psychiatry felt she was not having a bipolar manic episode and felt it was more of a hyperactive delirium. (Ppt had recently been in the hospital and had then been isolated to her room at [facility] due to COVID19 status.) No psychiatric medication changes were made and they did not feel that she needed inpt psychiatric admission. For her chronic RLE edema/chronic skin changes, she was initially started on antibiotics in the hospital for concern of recurrent cellulitis. Infectious disease was consulted and recommended observation off of antibiotics, elevation, moisturization and wraps, watching for tinea pedis. Infectious disease indicated that if still concern for nonpruluent cellulitis, then could do higher dose PO Keflex. As noted above, she declined to come to on 08/11/21 and was scheduled to come back in on 08/15/21 but was back in the ER. 08/15/21 Perla ERSent in from [facility] early in morning due to report of fall getting back into bed. Reported fell onto her R side and hurt shoulder and R upper leg. EKG showed NSR. Head CT showed no acute findings. No additional imaging appears to have been completed. Labs were drawn but results not provided on the paperwork received by . care team had conference call with [facility] nursing yesterday and they report that ppt continues to have disruptive and aggressive/accusatory behaviors. We discussed the action plan that [facility] [facility]OSPITAL had in place a few months ago where ppt would meet with sap basis administrator, but it appears that due to recent COVID worsening, that this has not happened. We encouraged that the [facility] administration/nursing meet with ppt frequently to ally her anxiety/concerns and help ppt come up with a better plan on how to manage her behaviors. Nursing was rounding in the [facility] building this afternoon and SE OT was also in the building. OT alerted RN to concerns about ppt's mobility and foot pain. Ppt reports difficulty in standing up and bearing weight on her R foot today. She is currently unable to elevate her legs consistently due to malfunctioning recliner chair (for which SE PT is also coming to complete an evaluation and troubleshooting this afternoon). States that her R foot is very tender, hard for her to even put on her slipper due to swelling and pain. States that her RLE is also more red and she feels that she might need the antibiotic liquid. DENIES worsening SOB. Reports that like in AA, I am taking things by the hour. Residents are not currently going down to the dining room at [facility] due to COVID restrictions and meals are being brought into the room. However, once the restrictions are lifted, it will be very difficult for her to get down to meals in her current state of mobility. EXAM:Alert and oriented, in better spirits today and more coherent with her thought process. However continues to be tangential but cooperative and pleasant. Asking about this investigative writer's day and how people were doing. Sitting up in her recliner chair in her room. Well groomed. Awaiting visit by SE PT and happy that he is coming out to see her today. Then speaking about her Cecilio Villalba stuffed owl that the nursing staff at the hospital got for her for her birthday (she was in the hospital for her birthday). At end of visit stated love you guys! RN and OT report that room was in poor condition upon their arrival - items strewn about the floor causing a fall risk and SE team helped get her room in order. Sclera nonicteric, appeared to have normal ROM neck, large ecchymosis on R side of chinRRR, speaking full sentences, did not appear to get SOB while speaking frequently, no coughWas able to stand from her recliner to assist with pulling down her sweatpants in order to observe her RLE. Ecchymosis noted on L upper thigh. Baseline BLE edema/lymphedema, pretibial RLE chronic skin changes, shiny, a bit more red than previously noted. Not wearing wraps or compression. R foot appeared to have some petechiae, very tender to touch when RN lightly touched foot; foot is slightly more edematous than her baselinePLAN:- ppt would like to go to ED for further workup. She is aware that she should go to [facility]. Do not have ability to get [employer] urgent xray this afternoon. Concern for foot fracture. She initially indicated that she would go now, then wanted to wait for SE PT to get here to look at her recliner chair. - PCN updating [facility] nursing of the plan. - concern with her weightbearing status - may need rehab for strengthening and conditioning - care team will follow The patient encounter today via MS Teams video with the patient's verbal consent. I personally spoke to the participant as well as RN Clear. Start Time: 1:35 pm End Time: 1:47 pmThe participant's physical location: her residence - [facility] provider physical location: [facility] Time spent - care coordination, virtual visit, charting - 75 minutes behaviors, agitation Ms. Ashley hall is being seen today urgently in the main lobby at due to behaviors. She is here for the day program and it was time for her to leave and go back to [facility] for the day. (This investigative writer was out in the community for the first part of the day so was not aware of the behaviors until this time.) Members of staff reported that she was having disruptive behaviors in the day program and as she was getting ready to go home for the day, behaviors escalated further. Per SE staff, she had been disruptive in the day program. BackgroundShe had recently been sent back to [facility] from the hospital for RLE cellulitis and during that hospitalization found to be positive for COVID19 and new afib. Upon arrival to [facility], she needed to be isolated to her room due to her COVID status and was able to leave her room starting 08/02/21. When this investigative writer saw her last week, she was very upset about not being able to come to the day program until today. Had a difficult time comprehending that she was not allowed to come back right away due to her status. She was able to be calmed down by this investigative writer during the previous visit when she was in the lobby of the [facility] and socializing with others. Initially this morning, the IDT had confusion about what date the ppt could come back to , thinking she was not able to come in today. It appears that she was called to inform of this, but the quarantine dates were incorrect and she was appropriate to attend day program today. Was notified by [facility] that ppt left a VM for her this morning expressing frustrations at being canceled and that she wanted to quit the program if she was not able to come into the program [facility]. As noted above, she was later picked up and brought to the day program. Floor nursing in day room reported that upon arrival to , ppt came into the day room and was already agitated and yelling. She reportedly began yelling out questions about what lunch will be, what is the meal she would want. Later demanded an egg salad on wheat. Staff reported that she was high strung and talking fast and told the floor nurse to shut up. She was also speaking out loud to no one in particular with random words/phrases. This behavior was disruptive to other ppts and the ppts were in fear of her behaviors (one became incontinent - and is not usually incontinent; another vomited). After lunch she was reported to continue to talk continuously out loud. She went to use the restroom and stated to the staff that she was leaving and to get her a ride. Ride was secured within 15 minutes but then staff reported that she would not ambulate towards the door. The gravel truck driver came in to encourage her to get onto the van, but she then reportedly began yelling shut up and other derogatory comments to the gravel truck driver, social staff worker, and other staff. Per site leasing agent Eyad, ppt later trying to physically get up onto the electric lift and get herself in to the van that way. The van decided that she was not safe to ride with them and she was sent to wait back inside the building.PCN called [facility] to obtain update from the long weekend and she was informed that Ms. Ricketts had been verbally abusive and threatening, yelling out and not able to be redirected. They also spoke with her niece who had been communicating with ppt and niece echoed the behaviors reported by [facility]. KALEB also reported that ppt was asking a fellow resident who is 100 years old to push her because can't walk (No known current activity restrictions. PT was to see her for evaluation. Had been hospitalized and may need some additional attention with regards to ambulation status by rehab for increasing strength and mobility.) [facility] also noted that ppt had not been refusing medications and had been taking them as ordered over the last few days. This investigative writer, site leasing agent Eyad, and ARLIN Steele also spoke with ppt's niece Fiona (HCP also) over the phone to update her on ppt's behaviors. She reported/confirmed what KALEB had reported over weekend (SE was not informed over the weekend) and feels that the hospitalization destabilized her along with the subsequent isolation in her room due to positive COVID19 status. We discussed that ppt may need Section 12 to go to the hospital and niece agreed. She indicates that if ppt needs psychiatric hospital stay, ppt has been hospitalized in the [place] area previously. [On a side note, ppt had reported that she was going to be going today to ?view an apartment in [place] at 4pm. Niece was unaware of this. Ppt did not provide further details.]It was then determined that ppt continuing to be a danger to herself and others and Section 12 was completed. EMS and police came to bring her to [facility]. She was upset at this and wanted Crisis to come but they would not be able to see ppt today while at SE due to the lateness in the day and she did not have a ride back to [facility]/KALEB did not feel comfortable accepting her back. She was hyperverbal with police and as they were speaking to her calmly, she put her hand up to them and told them to be quiet. She continued to be upset with this investigative writer, site leasing agent, nursing staff but later with prompting did get on the ambulance stretcher. As she was exiting and being wheeled out of the building, she was yelling that she was going to leave the [facility] program. She was also upset that care team called her niece and she felt upset that you went behind my back. Ppt left via ambulance approx. 1530 hrs. EXAM:Behaviors as above, observed in lobby to be hyperverbal, speaking loudly, upset if got interrupted, easily distracted and unable to keep on topic, difficult to answer direct questions; does not appear to be having hallucinationsWell groomed, ambulating with wheeled walker, did not get SOB while speaking constantly, no coughWas able to stand on her own to pivot to stretcher. Yelling at ambulance staff to make sure they had her walker with her. Time spent - care coordination, working with ppt, charting -120 minutes PHV off site Ms. Ricketts is being seen in at [facility] today for post hospital visit including being POSITIVE for COVID19. She is a fair historian at baseline and can get easily distracted. She is down in the lobby today at [facility] and refuses to go back up to her room for visit - I don't want to walk all the way up there. Visit able to be completed in quiet private area of [facility]. 07/28/21-07/31/21 [facility] Sent in from [facility] for RLE cellulitis and incidentally found to be in afib with RVR and COVID19 positive. For her COVID19, CXR showed no infiltrates and tolerated being on room air. Did not need additional therapies. (She had COVID19 in 2020 and also is vaccinated/boosted.)For her RLE cellulitis - is a chronic area for her, she is not adherent to keeping legs elevated or wearing compression. She was started on IV cefazolin and discharged on PO Keflex. US ruled out DVT. Atrial fibrillation - finding of new onset afib with RVR and initially needed Cardizem drip later changed to PO metoprolol. CT angiogram negative for PE. TSH normal. Started on Xarelto for anticoagulation - started on renal dosing and will adjust to 20 mg daily if GFR improves > 50 as outpt (however this seemed to already be the case prior to her discharge). Also discharged on metoprolol 25 mg PO BID. No rhythm control medication started. For her anticoagulation, has hx postmenopausal bleeding (has been minor, had D&C scheduled but it was canceled the day of the procedure due to bigeminy on telemetry) but has been reported to be minor. She was on xarelto x 3 days in the hospital and reported no bleeding concerns while inpt. [She is worried about blood thinner and was reporting that she only wanted to be on the blood thinner that she had been previously when had DVT (but we are unclear of her previous anticoagulation). Due to her BMI, does not qualify for the other DOACs at this time and Xarelto is indicated for those with morbid obesity.] She is upset today in the lobby since she was not able to come out of her room until today due to her COVID19 status. She was reminded about her infection, but states I feel fine. Then upset and tearful about not being able to go back to until next Saturday, I wanted to go on Saturday. Redirected conversation to say that she is now able to come out of her room and that she will be going back to soon enough. Kept perseverating on this issue. Later perseverating on being able to find a stamp to mail a card to someone. Needed to be reminded to keep her mask up over her mouth and nose. She states that I didn't know that my heart had a ribbon problem. Due to her anxiety, needed to reiterate this multiple times in simple language that she is on new medications for her heart, that it was a rhythm problem, and tried to discuss this. She was later able to be more calm and we discussed that she will follow up with cardiology in near future. She is agreeable to this. She thought it meant that she needed open heart surgery. We will continue to educate her on her heart issues. She is more receptive to teaching and comprehends better when she is calm. States that her RLE is better and is having no problems with the antibiotics. Still will not wear wraps since then makes it difficult for her to get her pants over them. She is happy today to show me her new slipper shoes. Feels a bit weaker after being in the hospital so she will be seen by PT later this week. Reminded her about wearing sturdy shoes for stability.She does report that she had a fall this morning when going from the bathroom into her room - states that got dizzy and bumped her leg against the doorjamb. Reports no injuries. She denies current dizziness. Overall reports no issues with chest pain, worsening SOB (has baseline SOB), palpitations. States she is eating fine. Wants to go back to eating in the dining room but congregate meals are still on hold due to COVID19 pandemic. [facility] will keep updated on any concerns. PLAN:- continue antibiotics until complete- she will notify of bleeding concerns now that on new medication xarelto-will recheck labs when back at for monitoring for renal function and possibility of switching xarelto to the higher dose (currently renally adjusted dosing)- 09/06/21 10:15 a.m. cardiology f/u as oupt - due for echocardiogram with contrast which has been ordered previously; they are not scheduling these regularly due to COVID pandemic- HR regular and controlled today, she can have chronic dizziness, will have repeat EKG when back at next week and have her ambulate to watch HR- rehab to see her for follow up PT/OT as needed- mammograms are on hold due to COVID19 and are not able to start to be scheduled until 09/04/21- due for updated PFTs - had previously been ordered by [facility]- needs sleep study- had previously been ordered by [facility]- dental pending - can see when they come to clinic- podiatry in 3-4 months - she is ok to see when at clinic- reminded on elevation of legs, compression since can put her at further risk of cellulitis- pending consult for R hand pain/decreased ROM- pending ophthalmology - overdue, can see at clinicTime spent - care coordination, off sit visit, charting - 100 minutes ÁNGELA Ms. Ricketts is a pleasant 70-year-old female who has been enrolled in the [facility] program since 01/20/2020 and is being seen for her biannual exam. She can be a poor and difficult historian due to behavioral health issues, easily distractible when she is anxious but is relatively calm today. HOSPITALIZATIONS/ER/SNF visits - none since December 2020 ER visit. She has been doing well overall with her behaviors since moving to [facility] from [facility]. She had some initial issues with her roommate but [facility] reports that she is doing well. She is often seen by this investigative writer in the lobby at [facility] socializing with others and participating in activities. She comes to the [facility] site 2x/wk, transported by [facility] transportation. M edications will be reviewed and reconciled by caregiver services home. Takes medications whole without issues or reports of refusing medication. Bubblepacks. She previously was having some issues with swallowing her pills and seemed to be related to GERD. She has been started on increased PPI and reports has no swallow issues currently. ADVANCED DIRECTIVES:HCP 07/11/2020 - Primary is carly Srivastava, alternate is her brother Kojo. HCP not invoked. MOLST updated today with CPR discussion - DNR, DNI, + transfer to hospital, undecided dialysis, no artificial nutrition, + IV fluids. GYN - she has been followed by [facility] for postmenopausal bleeding. She was having recurrent symptoms and was scheduled for D&C in April but then it was cancelled on the day of the procedure due to bigeminy on EKG. SE was not notified of this, but was told by the ppt. She was then scheduled to see cardiology for evaluation before it was rescheduled, but she was then seen and cardiology did not address the issue of bigeminy. She reports is not currently having issues with vaginal bleeding and she wants to hold on rescheduling the D&C for now. She knows to notify for bleeding concerns. CARDIOLOGY - as noted above, she was referred to cardiology for evaluation since her [facility] procedure was canceled on the day of. This provider had ordered a 48 hr holter to look for PVC burden and Echocardiogram (with contrast) since her prior echo was very limited. She saw cardiology in 05/2021 and felt that she did not need further cardiac workup at the time but felt she was appropriate for the [facility] procedure. They recommended sleep study which is also in process. She also has prev dx of pulm HTN. Reports no current issues with chest pain, feelings of palpitations. States that her LE edema is at its baseline - does not wear wraps/stockings since does not have ability to then get her pants over them when getting dressed. Encouraging elevation in her recliner and in her hospital bed. Has not had recent issues with cellulitis BLE. PULMONARY - Saw pulm on 03/14/2020 - in office spirometry showing normal readings. Pulmonary ordered PFTs and 6-minute walk test to objectively assess asthma diagnosis and exercise limitation; IgE, sleep study, Echo to assess elevated PASP and heart function, dietary and fluid restriction. She was to follow up in 3 months with them. She cancelled her echocardiogram previously and had in 06/2020 - was very limited study and unable to obtain PASP, normal EF. New echo has been ordered with IV contrast PRN. 6 minute walk test 03/2020 - 98% O2 sat at rest, 95% on RA max exertion, ambulated 204 meters (50% predicted); dyspnea and fatigue at rest on room air with mild increased dyspnea with exertion. She has still not yet had her PFT testing and we discussed importance of this. She also still has not had her sleep study which has been recommended multiple times and she is agreeable to this. Reports that her breathing has been better for her overall. Only needs to use her nebulizer machine a few times per month. Reports adherent with her respiratory inhalers. Behavioral health - Her behaviors and mood have been much improved due to moving into [facility]. Then initially had issues with her new roommate (cannot afford private room) that is known to the program who also has significant behavioral health issues. There was worry that she could be in danger of losing her housing and was given notice. In the last few months, her roommate has moved out to another facility. She has been attending the SE day program 2 days per week and has been doing well with that. Also participating in the activities at her [facility]. She declines following up with psychiatry/counselor. Vision - seen on 03/10/2020 with 1 year follow up that did not occur; she reports that she has known cataracts OS>OD, has bifocals; she will see optho when they come to the clinic Dental - had appt on 05/13/20 but cancelled since reported no dental issues during COVID pandemic. Has not yet seen but will get her in with dental when they come to clinic. Will set up for cleaning, had bottom plate and was tried to be fixed and it didn't work - doesn't wear the plate, denture upper Podiatry - UTD, last saw on 06/28/21, return 3-4 months; in the note, provider encouraged more supportive shoes; pes planus but she reports was wearing her slip on shoes that day to make it easier for appt. States has proper ortho shoes provided by . Immunizations - UTD on seasonal flu vaccine, shingrix, Tdap, COVID19 (3 doses), pneumonia vaccines. Due again for PPSV23 in 2021 since received it before age 67. Hearing - seen by ENT in 02/2020 mild hearing loss but no need for hearing aids, Diet - meals prepared by [facility], not getting as much takeout recently due to financial issues. She is reminded to keep low Na diet and watch caloric intake. She reports cuts her food small enough to chew and does not wear her lower partial denture due to fit issues. Feels that her GERD is more controlled. Memory/MOCA - 12/2020 - ; 01/2020 (points off for visuospatial, language, abstraction, delayed recall); feels memory is good - gets worse when she is anxious/feels overwhelmed or doesn't get enough sleepFalls -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 to call her niece/HCP to let her know. Also worried about her delayed move to [facility] due to her COVID infection and rent payment. Otherwise no other concerns.PLAN: - [facility] will continue to monitor her over long holiday weekend and send to ED if she decompensates- [facility] working with [facility] on her move from [facility] when she is improved from her COVID infection; will be COVID tested prior to move; [facility] will be moving her but she will need transportation to get to [facility]; hospital bed is already at [facility]- Care team will continue to follow post ED visit - COVI D19; + D Dimer Ms. Ricketts is being seen today in her room at [facility] for post ED visit. Visit from doorway since this provider is also sampling other residents for COVID due to an exposure 7 days ago from a COVID+ employee. (Ms. Ricketts tested negative for COVID in the ED on 07/18/2020.) She is a very poor historian due to distractibility, anxiety, mental health concerns. Ms. Ricketts was last seen in the clinic on 07/14/2020 and her D dimer was noted to come back positive. Wells Score 2-3 for history of PE, general immobility, BLE swelling. Therefore, she was sent to the ED for further workup on 07/18/2020. Of note, she then reported CP in the ED which she had not reported to this provider. EKG and troponin negative. Echo 07/11 with no significant findings. She had BLE Doppler studies in ED with no evidence of DVT. Chronic venous stasis changes noted on LE. CT negative for PE. No significant findings on labs. She received IV fluids prior to discharge due to IV contrast for CT scan and then sent home last evening from ED.Today she reports that she feels fine. She is happy that her workup did not show PE. More worried about her upcoming move to [facility]. DENIES CP, worsening SOB. She was made aware that she was COVID negative and that she needs to remain in her room due to COVID + employee. She is agreeable to this. PLAN:- again discussed dietary changes and recommendations- paperwork pending for [facility] move- will have repeat COVID testing within 72 hrs prior to move to [facility] if they do not hold up her transfer due to COVID exposure in her [facility] building follow up RLE Ms. Ricketts is being seen as a walk [facility] due to Rodríguez reporting that her RLE was becoming more reddened. Ppt was last seen in the clinic on 07/11/2020. She is a very poor historian due to distractibility, anxiety, mental health concerns. She has also been followed for chronic condition management. Had echo on Saturday07/11/2020 prior to her clinic visit. Echo has now been resulted - showing normal EF, somewhat limited test due to body habitus, LA dilation, PA pressure could not be obtained.PT indicating that she has seemed a bit more short of breath today. Additional dosing of torsemide has been added recently to see if this will help with her SOB. Also continues to gain weight and eat large amounts of foods. Not consistently keeping her legs elevated.DENIES CP, dizziness, headaches, recent falls. [facility] staff reporting her baseline behavioral issues but is now more isolated in her room due to recent issues with another resident and calling the police on them. She is eager to move out to [facility]. By exam her RLE redness is not worse than prior visit on 07/11. Alert and oriented, morbidly obese, well groomed, wearing face mask. LS diminished throughout, no cough, speaking full sentences without having to stop - difficult to keep on track but no respiratory issues when speaking at length. RRR. Cardiac - +3 BLE edema nonpitting, redness RLE pretibial area and chronic skin changes. HR regular, distant heart sounds - difficult to ascultate due to body habitus. Ambulating with wheeled walker, needs multiple times to get herself to stand up out of chair to ambulate out of room. PLAN:- RLE does not appear worse than seen last on 07/11. Will continue to follow. Chronic skin changes. Noncompliant with elevation, dietary restrictions.- will have update BNP. Will run D-dimer due to hx PE. Updated echo showing no significant findings. Due for sleep study. - paperwork for [facility] is pending with hopeful move in the next few weeks. SW will be assisting with some coordination. Will not be needing to change pharmacies. semiannual / exam pr ior to moving [facility] Patient is a 69-year-old very distractab le female who has been enrolled in the [facility] program since 01/20/2020 and is being seen for her biannual exam. She is a poor and difficult historian due to behavioral health issues. The care team has attempted to work with her extensively over the last few months to get her care organized. There have been some limitations due to the COVID pandemic. There have been no hospitalizations, SNF admissions in the last six months. She did go to the ED in 05/2020 for feeling that her RLE redness was worsening while on antibiotics, but waited in the ED for many hours and was not seen. Therefore she returned home.01/28/2020 ED visit for agitation - Seroquel adjusted, not admitted. Treated LLE with Keflex. She lives at [facility] but is looking to move to [facility] in the near future. She has moved around to multiple [facility] in the past. Prior to [facility] was at [facility] and had issues with fellow residents at that facility also. She currently has had interpersonal issues with fellow residents and has called the police on them. She does not come to the [facility] site regularly, [facility]. Medications will be reviewed and reconciled by caregiver services home. Takes medications whole without issues or reports of refusing medication. Bubblepacks. ADVANCED DIRECTIVES:Updated HCP filled out since cannot find former copy. Primary is christy Srivastava, alternate is her brother Aletha filled out - has living will on file; CPR x 1 only; no intubation, no CPAP, + transfer to hospital, no dialysis or artificial nutrition, + IV fluids temporarily. GYN - Saw Dr. Gil on 03/09/2020 for evaluation of postmenopausal bleeding. Endometrial biopsy was obtained in the office but scant tissue present. Transvaginal and transabdominal US completed on 04/01/2020 showing atrophic uterus, normal endometrial thickness, small intramural fibroid of posterior wall. She is seeing TEACHERS' AIDE again in the new year for follow up. Can go through 1-2 pads/day. Other times it will stop for 1-2 days. PULMONARY - Saw shilo on 03/14/2020 - in office spirometry showing normal readings. Pulmonary ordered PFTs and 6-minute walk test to objectively assess asthma diagnosis and exercise limitation; IgE, sleep study, Echo to assess elevated PASP and heart function, dietary and fluid restriction. She was to follow up in 3 months with them. She cancelled her echocardiogram previously and was having it completed this morning prior to her clinic visit. 6 minute walk test 03/2020 - 98% O2 sat at rest, 95% on RA max exertion, ambulated 204 meters (50% predicted); dyspnea and fatigue at rest on room air with mild increased dyspnea with exertionShe has not yet had her PFT testing. Reports that her SOB is not worse, happens with distances. When gets off elevator to go to meals, has to sit in parlor before going into dining room in order to catch her breath. Reports that does not have to rest for a significant amount of time before getting back up. Now has nebulizer at [facility] and has now been on scheduled nebulizers since she had PRN but was not using. When she is having SOB, she continues to speak full sentences during these times. ENT - saw ENT on 03/15/2020, was referred for dizziness. Hearing test completed at that visit. Office states no follow up set up yet. Dizziness is better after getting ears cleaned out. Both ears reported to have some mild hearing loss but no need for hearing aids. Dizziness thought to be medication related - diuretics had been backed off in the fall due to hypotension. Vision - seen on 03/10/2020 with 1 year follow up; cataracts OS>OD, bifocalsDental - had appt on 05/13 but cancelled since reported no dental issues during COVID pandemicPodiatry - was to see in ; went in February, felt that she rushed too much and was rude was switched to [facility]; things again on hold due to COVID pandemic Immunizations - UTD on seasonal flu vaccine, shingrix, Tdap. Due again for PPSV23 in 2021 since received it before age 67. Hearing - seen by ENT in 02/2020 mild hearing loss but no need for hearing aidsDiet - meals prepared by Rodríguez MANUEL, reports that is not very specific low Na, low fat; she also orders delivery multiple times per week per KALEB report; not adherent to specific diet DEXA - reports had previously; hasn't had recently; will evaluate in future if she would like another, will try to get copy of previous MOCA - 01/21/2020 (points off for visuospatial, language, abstraction, delayed recall)Falls - no recent falls reported by [facility], reports due to overall weakness, uses wheeled walker for ambulationActivity/exercise - no formal exercise regimen; activity limited by musculoskeletal issues; activity limited by musculoskeletal issues, SOB; reports had a history of a fall down the stairs years ago and now has a crooked spine (that can also sometimes reportedly cause her to have headaches). Incontinence - reports no issues Sleep - due for sleep study; reports poor sleep, sleep about 4 hours; is agreeable to sleep study; has to void oftenMammogram - wants to hold until 2020; last in 2018 - normal Colonoscopy - normal previously in 2016, due in 2026 Pain - knee pain; can also have headaches occasionally; has been taking TID APAP; also reports cramping in her R hand index finger/trigger finger, has a brace which does not always use - encouraged to wear brace more consistently Skin - has had redness RLE, treated with antibiotics x 2, not complaint with elevating legs, dietary restrictions, does not want to wear LE wraps Diagnoses reviewed. All chronic conditions in this assessment are stable unless stated otherwise.PLAN: - labs UTD- nystatin ordered for groin irritation - she refuses the powder and wants the cream, able to apply herself - will have COVID testing prior to move to [facility] when date is finalized; care team to assist with paperwork post ER visit/ follow up RLE Ms. Ricketts presents today to the clinic for follow up ED visit. She went to the ED on Saturday06/20/2020 since she felt that her RLE erythema was not improving and wanted to get IV antibiotics. She ended up waiting in the ED before being seen and came home. She is a fair historian, easily distracted and difficult to keep on track, history of brain injury, mental health diagnoses. Extended her course of Keflex and encouraged continued elevation. She states the redness it is somewhat improved. Also noting that she has gained a significant amount of weight in the last 2 months. It has been reported to care team that she can eat excessively. Jo Ann states that she does not add salt to her food but that the [facility] cooks with a lot of salt. She drinks about 2 PowerAdes per day and reports to drink a lot of water. Does not exercise. Refuses to wear compression wraps on her LE. States does get SOB with exertion. DENIES orthopnea, CP, falls. States she continues to have issues with dizziness. BP is in good range today. Reminded to get up slowly. Diuretics had been decreased previously due to dizziness. ENT saw her and thought it was more medication-related. She was noted to eat a package of brian crackers, cookie, and corn muffin while she was waiting to go home today. She is also hoping to move to [facility] in the near future and is excited to have her own place. Other:- reports that vaginal itching has improved with the 1x dose of diflucan - She is reporting continued episodes of painless vaginal bleeding but has not heard update from TEACHERS' AIDE; reports has had D&C in the past; US in 03/2020 showed fibroid PLAN:- will be back at on 06/27/2020 for rehab and meeting with - Care team will follow up on TEACHERS' AIDE and report continued issues with painless vaginal bleeding- office will assist with rescheduling PFTs, echo. Also needs sleep study- Encouraged cutting back on foods and low Na. Does not appear overtly in HF. - Encouraged to not get upset or involved with residents at facility and is planning on moving to [facility]. lab review Updated labs rec eived, being treated for presumed RLE cellulitis. No WBC elevation, H&H stable, thyroid normal range, folate normal. B12 elevated. Vitamin D borderline low. PLAN:- no change to levothyroxine dosing- DECREASE vitamin B12 to 3x/wk-continue on current dosing of Vitamin D at this time, no significant CKD but will continue to follow RLE redness Ms. Ricketts is being seen on an urgent basis due to call from [facility] regarding worsening redness RLE. This provider happened to be in the neighborhood and was able to complete a brief home visit. Ppt's [facility] is on lockdown due to COVID pandemic. She is a fair historian due to her anxiety and mental health issues.[facility] reports that she has not had a fever - residents are checked daily for fevers. They were unable to obtain other vital signs prior to this provider's arrival. [facility] staff report that she has had some weight gain -eating more, eating sweets, drinking a lot of soda. Ppt stating that she does not like the food at [facility]. [facility] staff also report that her RLE redness has been gradually worsening over the week when they have been assisting her with showering. She has chronic LE edema. Ppt also had reportedly had an outburst in the lobby prior to provider arrival. She was upset, swearing, and went up to her room. Does not see psychiatry and does not want to see.She also is reporting that feels like the Seroquel isn't helping her too much for sleep. Doesn't like it. Encouraged her not to stop it completely and we can discuss cutting back. Has a PRN dose so she can stop taking that first. Reports also that she has had some R outer thigh numbness and burning x 1 month. Makes it difficult for her to sleep. She will place a cool cloth on it to help. Mainly worse at night. Immunizations - UTD on seasonal flu, PNA, Tdap, ShingrixPLAN:- START Keflex 4x/day x 7 days. Reminded to cut down on salty foods, elevate leg, cut down on sweets.- nursing will follow up in person or remotely next week to follow up (remotely due to COVID pandemic). - due for updated labs and will be drawn on Saturday - Has upcoming appt at for biannual in middle June, can be seen sooner PRN- will contact her to hear her concerns for wanting to move to another [facility]; She was reminded not to give her notice at [facility] until speaking with and coming up with a backup plan. - ppt will be rescheduling her echocardiogram that has been cancelled x 2 - rehab team to also see about adding her to functional maintenance plan and to see if there are some treatments for her R outer thigh numbness/burning- asking for melatonin for sleep - will start 1 mg dosing for now routine follow up ch cirilo t Ms. Ricketts presents today for routine follow up and care coordination for her chronic conditions. She recently enrolled in the program on 01/20/2020 and the care team is working on organizing her care. There have been multiple psychological and medical issues ongoing with her case. She was last seen in the clinic on 02/29/2020 for routine follow up.TEACHERS' AIDE - Saw Dr. Gil on 03/09/2020 for evaluation of postmenopausal bleeding. Endometrial biopsy was obtained in the office but scant tissue present. Transvaginal and transabdominal US completed on 04/01/2020 showing atrophic uterus, normal endometrial thickness, small intramural fibroid of posterior wall. Will await further recommendations from TEACHERS' AIDE. Reports still bleeding a bit, no clots or pain, regular blood. Continues to wear pads.PULMONARY - Saw pulm on 03/14/2020 - in office spirometry showing normal readings. Pulmonary ordered PFTs and 6-minute walk test to objectively assess asthma diagnosis and exercise limitation; IgE, sleep study, Echo to assess elevated PASP and heart function, dietary and fluid restriction. She will follow up in 3 months with them. She is hesitant to get required COVID test prior to PFTs since she is worried that she might get stuck in quarantine at [facility]. We will review in follow up. Does not wear a CPAP. Reports that her SOB is not worse, happens with distances. When gets off elevator to go to meals, has to sit in parlor before going into dining room in order to catch her breath. Reports that does not have to rest for a significant amount of time before getting back up. Got nebulizer delivered to [facility] but has not had to use - reminded her it is there for emergencies. Podiatry - went in February, felt that she rushed too much and was rude. Will switch to [facility]. Vision - went to optho recently and was told need bifocals. Will go to [facility] in near future to get glasses. ENT - saw ENT on 03/15/2020, awaiting note, was referred for dizziness. Hearing test completed at that visit. Office states no follow up set up yet. Dizziness is better after getting ears cleaned out. Both ears reported to have some mild hearing loss but no need for hearing aids.Has already received her annual flu vaccine this year. Will get Shingrix #2 next visit.Behavioral Health - doesn't want to see a counselor. States talks to her decay control operator who helps her get calmed down. Taking her medications as ordered and hasn't needed PRN Seroquel often. States trying to stay out of it at the [facility] and spending more time in her room and going down to [place] but not getting involved with the drama at the [facility]. She has pulled back her request to move from [facility].LE edema/skin - elevates her legs in her recliner. Has just received wraps from [facility] team but she doesn't like them - makes it difficult for her to pull her pants up over the wraps. Will review with OT. Pain - just in my knees - using PRN menthol topical rub for pain with effect, Lidocaine patches didn't stick in place.PLAN: - 04/19/2020 3pm echo- await recommendations from TEACHERS' AIDE regarding her recent ultrasounds for workup of post-menopausal bleeding- Follow up in clinic in 1 month for routine follow up- Request eye notes - Oseas #2 due after 04/30/2020, can receive in next office visit- Podiatry for May 2020 routine, [facility]- Will review with rehab her issues with wearing her LE wraps routine follow up/ch ronic conditions Ms. Ricketts presents today for routine follow up and care coordination for her chronic conditions. She recently enrolled in the program on 01/20/2020 and the care team is working on organizing her care. There have been multiple psychological issues ongoing with her case. She is a fair historian due to her behavioral health issues.Since she was last seen in the clinic, she gave her 30 day notice at [facility] to move out. Per staff at [facility], she had given her notice multiple times and [facility] staff would not accept her notice. However, over the last few weeks she has had worsening behaviors at her [facility]. Has been reported that other residents of the building have given their notices since they are unable to continue to live at [facility] with her. [facility] has therefore accepted her notice.Ms. Ricketts indicates to me that [facility] is not the right place for me. She indicates that she would like to move out but does not have a concrete plan. 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 Ms. Ricketts states that she liked [facility] and would consider going back there (however, she was asked to leave and likely cannot return). She stated she would consider a foster care situation but has no plan. She is aware that does not help with housing placement. States that she has been depressed after having to remain in isolation during the COVID pandemic as well as finishing up her isolation after hospital stay. States that she tolerated the antibiotics for her LLE cellulitis well. RLE edema persisting but not worsening.She has not yet received her nebulizer machine, care team to look into this. She also had an ear flush today by EMELYN prior to her upcoming ENT appointment. She was able to have debrox drops administered by [facility]. She reports afterwards upon examination that she realizes that she had an issue with her R ear but didn't know to what extent and didn't tell staff, noted what appeared to be not fully intact TM/scarred TM. Received shingrix #1 in office today. Reports still having some recurrent vaginal bleeding, but not as bad as prevoiusly. She indicated wasn't sure if she should follow up, but was encouraged by this provider to do so due to family hx of CA.PLAN:- Follow up in clinic in 1 month for follow up- Care team to discuss care plan going forwards, new living options and how to manage her care - Care team to look into nebulizer machine delivery - Has multiple consultations coming up and was given list of appts - 03/03/2020 Dr. Watson podiatry- 03/09/2020 Dr Gil TEACHERS' AIDE for f/u post menopausal bleeding-03/10/2020 Dr. Lam optho- 03/14/2020 [facility] pulmonary for consult asthma/emphysema- 03/15/[address] Duncan for dizziness- Will receive seasonal flu vaccine when available in clinic. Shingrix #2 2-6 months from now. PEE Patient is a 69- year-old female who has been enrolled in the [facility] program since 01/20/2020 and is being seen for her post-enrollment visit. She has behavioral health issues and can be difficult to keep on topic during the visit. She was most recently seen in the clinic last week for post hospital visit. She was supposed to be seen on 02/08/2020 but there was a transportation mixup and she therefore was scheduled to today. HOSPITALIZATIONS/SNF ADMISSION/ED VISIT- 01/28/2020 - ED visit for behaviors - Seroquel adjusted, treated for presumed RLE cellulitis- Reports that was also in the hospital earlier in 2019 for falls and had stayed overnight in psychiatric hospitalShe has enrolled since the COVID pandemic and the day program has limited availability. She currently only comes to the site for medical appointments. She lives at [facility], has been there a few months. Previously was at [facility] but had issues with other residents and moved out. Medications reviewed by RNs in the home. Medication list has been reconciled previously. Medications administered by [facility] staff and receives in bubble packs. ADVANCED DIRECTIVES:HCP - do not have copy on file. Will review with ppt in future visits. Reports carly Laguna is HCP. She does have a Standard Advanced Directive list for [place] residents signed in 05/2019 indicating that she generally does not want extensive life sustaining measures if she has no hope of recovery. Copy in chart. Do not have MOLST on file. Can review in future visits. Ms. Ricketts reports that she was upset that there was a transportation mixup on Saturday for her appointment. She indicated that she was then unaware of the appointment today and was happy that at least she was up and dressed for the day. She reports that she likes consistency in messaging and no mixed messages. States that if she receives mixed messages, it can make her anxious and my bipolar can act up. Does not like people talking over her head, asks for care team to speak in common language. She also would like care team to call her niece after visits to provide her with an update. Reports things have been hard with the COVID lockdown since she has not been able to spend time in group activities etc (liked the Wii at [facility]). States does like to read biographies. Social/Behavioral - she currently lives at [facility], has been there for a few months. Previously was at [facility], where she was reportedly not getting along with other residents and was asked to leave. Appears that she has been at other residences in the past with similar situations. She was having issues at [facility] recently and was brought to the ED for evaluation where her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 home trial later this week Related to Lymphedema due to venous insufficiency - see [facility] Related to Veno us insufficiency (chronic) (peripheral) - See HPI and lympha darren- etiology is [facility] Related to Non-pressure chronic ulcer of other part of right lower leg with other specified severity - continues, leg cir cumference is improved, lymphorrhea is improving LLE, - [facility] OT was able to apply graduated compression stockings wtih velcro wraps to both legs. Ppt can take off for showering. - will be back at on 06/04/22 for next evaluation. Does have some redness LLE and slow to heal wound on RLE-she is currently at [facility] for STR and is encouraged to keep her legs elevated consistently to a level that is effective- [facility] clinic pending but still not able to get in touch with them yet to get in for appt Related to Lymphedema due to venous insufficiency - see [facility] Related to Veno us insufficiency (chronic) (peripheral) - continues, Coban 2 wraps by SE OT who is certified in [facility] treatment completed in clinic today - she will keep these wraps on until Saturday05/30/22 - will be back at on 05/30/22; overall circumference of legs is improving but does have some redness LLE and slow to heal wound on RLE-she is currently at [facility] for STR and is encouraged to keep her legs elevated consistently to a level that is effective- [facility] clinic pending but not able to get in touch with them yet so [facility] will continue to follow Related to Lymphedema due to venous insufficiency - see [facility] Related to Venou s insufficiency (chronic) (peripheral) - See HPI and lympha darren- etiology is [facility] Related to Non-pressure chronic ulcer of other part of right lower leg with other specified severity - continues, Coban 2 wraps by SE OT who is certified in [facility] treatment completed in clinic today - she will keep these wraps on until Saturday05/28/22 - will be back at on 05/28/22 and will see how ppt tolerated and if skin/lymphadema improved -she is currently at [facility] for STR and is encouraged to keep her legs elevated consistently to a level that is effective- [facility] clinic pending but not able to get in touch with them yet so [facility] OT will continue to follow Related to Lymphedema due to venous insufficiency - continues, Coban 2 wraps by SE OT who is certified in [facility] treatment completed in clinic today - she will keep these wraps on until Saturday05/28/22 - will be back at on 05/28/22 and will see how ppt tolerated and if skin/lymphadema improved -she is currently at [facility] for STR and is encouraged to keep her legs elevated consistently to a level that is effective- [facility] clinic pending but not able to get in touch with them yet so [facility] OT will continue to follow Related to Venous insufficiency (chronic) (peripheral) - See HPI and lympha darren- etiology is [facility] Related to Non-pressure chronic ulcer of other part of right lower leg with other specified severity - See HPI and lympha darren- etiology is [facility] Related to Non-pressure chronic ulcer of other part of right lower leg with other specified severity - see HPI and lympha darren- etiology is due to [facility] Related to Non-pressure chronic ulcer of other part of left lower leg with other specified severity - continues, not lefty erant of Unna boot, at this point only tolerating GREGORIA wraps; not able to keep her legs elevated consistently to a level that is effective- she will be going to [facility] for STR to assist with her ability to get her legs back under better control- [facility] clinic pending but not able to get in touch with them yet Related to Lymphedema due to venous insufficiency - see [facility] Related to Veno us insufficiency (chronic) (peripheral) Uncontrolled with op en area on legs that is weeping, does not appears infected. Currently being wrapped with gregoria. Jo Ann is at an increased risk for cellulitis of her leg secondary to edema. she is not gettting proper treatment for her leg. She will be coming to [facility] for lymphadema treatment. Jo Ann educated on the importance of having leg wrap on and elevated.-changed dreassing: cleanse wound with wound cleanser/normal saline and apply silver alginate and wrap with Gregoria. -Will need JIM to be done while at [facility] Related to Lymphedema due to venous insufficiency Admitted to [facility] for complications of lymphedema.- significant/chronic BLE edema which is multifactorial in nature- is not able to keep her legs elevated, does not want compression especially since feels then she cannot get her pants on. - had CT pelvis in 02/2022 and pelvic compressive phenomenon was excluded- [facility] clinic referral pending- now has blistered areas and has wound care- she does not admit to her dietary issues which are contributing to her BLE edemaContinue SNF stay to help with dressing changes, activity intolerance, transfers when having compression wraps in place, ability to independently do her ADLs Related to Lymphedema due to venous insufficiency Admitted to SNF for complications of lymphedema.- significant/chronic BLE edema which is multifactorial in nature- is not able to keep her legs elevated, does not want compression especially since feels then she cannot get her pants on. - had CT pelvis in 02/2022 and pelvic compressive phenomenon was excluded- [facility] clinic referral pending- now has blistered areas and has wound care- she does not admit to her dietary issues which are contributing to her BLE edemaContinue SNF stay to help with dressing changes, activity intolerance, transfers when having compression wraps in place, ability to independently do her ADLs Related to Venous insufficiency (chronic) (peripheral) Ongoing, under breas t, abd fold and b/l groin.- Order given for SNF to administer nystatin cream twice daily Related to Fungal rash of trunk - significant/chroni c BLE edema which is multifactorial in nature- is not able to keep her legs elevated, does not want compression especially since feels then she cannot get her pants on. - had CT pelvis in 02/2022 and pelvic compressive phenomenon was excluded- [facility] clinic referral pending- now has blistered areas and will be having wound care; unclear if she will tolerate the dressing changes/compression. Takes 30 min to 60 min to do the wound care- she does not admit to her dietary issues which are contributing to her BLE edema- care team to continue to follow closely, may need SNF stay if the wounds persist to help with dressing changes, activity intolerance, transfers when having compression wraps in place, ability to independently do her ADLs Related to Lymphedema due to venous insufficiency -see [facility] Related to Venou s insufficiency (chronic) (peripheral) - BMI now over >70, does not exercise, easily SOB, not on O2, did lose some weight in the SNF but was not ordering take out (grinders and pizza) while at SNF and has now gained it back and then some- has not yet had sleep study; A1C 06/2021 5.4- has had thoughts of gastric sleeve surgery in past but not followed up, if she had gastric sleeve, would not be able to adhere to the meal preparation that would be needed (i.e make her own meals; strap setter access)- meals prepared by [facility], she is not able to make many dietary changes with what is offered there and orders out- her activity tolerance is also limited by her weight, uses wheelchair more for distances, updated echo showing normal EF and preserved systolic function - care team to continue to follow Related to Morbid (severe) obesity with alveolar hypoventilation - see morbid obesity with alveolar hypoventilation Related to BMI 70 and over, adult - multifactorial- ca n get SOB with ambulation, resolves when sits and takes deep breaths; deconditioned, diastolic dysfunction (getting updated echo next week), morbid obesity, anxiety, asthma, possible untreated KELSEY- is on asthma medications, PASP 2019 45-50- has sleep study pending when can get scheduled, she has refused it in the past- did lose some weight in SNF - was not ordering out, now has been gaining weight back when got back to [facility] ordering out pizza and grinders- has had updated echo in 02/2022 - normal LVEF, systolic function preserved, mildly elevated PASP at 41mmHg.- will continue to follow, await updated tests, see pulm as needed - had refused to go Related to Shortness of breath - has multiple psych iatric issues- is not adherent to dietary recommendations, not able to elevate her legs to an appreciable extent which affect her ability to manage her lymphadema. - care team to continue to follow and assist her and see how she tolerates the compression Related to Nonadherence to medical treatment Blister due to exces s fluid in legs has opened- Continue wound care- Continue cephalexin Related to Blister chronic edema with i ntermittnet bouts of cellulitis.Continue keflex 500mg TID x 7 daysnew wound orders for calc alginate every other day Related to Edema due to congestive heart failure keflex x7 days Related to Cellu litis of right lower extremity chronic edema with i ntermiitnet bouts of cellulitis.new orders for keflex 500mg TID x 7 daysnew wound orders for calc alginate every other day Related to Edema due to congestive heart failure - per pre-enrollment , echo 02/10/16 - mild dilatation of LA, mild AI; updated echo 06/2020 showing normal EF, somewhat limited test due to body habitus, LA dilation, PA pressure could not be obtained. Diastolic dysfunction. - on torsemide daily (adjusted in last few months due to concerns for dizziness), has chronic BLE edema but is also morbidly obese and evidence also suggests KELSEY (which could also contribute to LE edema), also going to be seen by [facility] clinic. -has baseline SOB but appears to be multifactorial-06/2021 BNP 32, 07/2021 in hospital 75 (morbidly obese)- updated echo with contrast to further clarify diastolic dysfunction scheduled for next week-sleep study has already been ordered and is pending, she was then refusing but now agrees. PFTs recommended but not yet completed. Scheduling had been difficult due to COVID pandemic. She is reluctantly agreeable to PFTs. - care team will continue to follow- continue to follow with cardiology Related to Chronic heart failure with preserved ejection fraction - multifactorial- ca n get SOB with ambulation, resolves when sits and takes deep breaths; deconditioned, diastolic dysfunction (getting updated echo next week), morbid obesity, anxiety, asthma, possible untreated KELSEY- is on asthma medications, PASP 2019 45-50- have sleep study pending and she has agreed to do this- did lose some weight in SNF - was not ordering out - will continue to follow, await updated tests, see pulm as needed - had refused to go Related to Shortness of breath -GFR historically in the range of high 50s-60. Dominant issue is morbid obesity and hypertension- 02/2022 GFR 50, Cr 1.18-Control hypertension, goal BP < 140/90, but preferred < 130/90; can get dizzy -Avoid nephrotoxics Related to Stage 3a chronic kidney disease - BP stable in clini c today, BPs can be variable - difficult to check BP due to body habitus, fidgets often when checking BPs, goal BP <140/90 but preferred < 130/90- has component of obesity and possible untreated KELSEY which can also contribute to elevated BPs. - on low dose amlodipine, and diuretic; BPs in SNF were more stable as well as she was not ordering high salt take out while in the SNF. She reports does not add Na to her diet. Diuretics were previously decreased during a hospital stay. - can consider switch to carvedilol in the future (is on beta paula for hx afib) to help with better BP control. Unclear if amlodipine is contributing to some of her LE edema.- will continue to follow- See CKD3 Related to Hypertensive heart and chronic kidney disease with heart failure and stage 1 through stage 4 chronic kidney disease, or unspecified chronic kidney disease - 01/2022 labs showin g polycythemia - H&H elevated, RBC elevated. Additional labs were ordered (Jak2, UA, serum epo) but then she ended up in the hospital. - repeat labs in hospital and SNF have had normal H&H levels. She also likely has untreated KELSEY, does not wear O2, obesity, asthma.-will recheck labs periodically and can do the previously ordered labs as needed. Related to History of polycythemia - BMI >68, does not exercise, easily SOB, not on O2, did lose some weight in the SNF but was not ordering take out (grinders and pizza) while at SNF- has not yet had sleep study but is agreeable; A1C 06/2021 5.4- has had thoughts of gastric sleeve surgery in past but not followed up, if she had gastric sleeve, would not be able to adhere to the meal preparation that would be needed (i.e make her own meals; strap setter access)- meals prepared by [facility], she is not able to make many dietary changes with what is offered there and orders out- her activity tolerance is also limited by her weight, uses wheelchair more for distances - care team to continue to follow Related to Morbid (severe) obesity with alveolar hypoventilation - see morbid obesity with alveolar hypoventilation Related to Body mass index (BMI) of 60.0 to 69.9 in adult Patient with signifi cant and chronic lower extremity lymphedema. I believe this is multifactorial including venous insufficiency, her morbid obesity, minimally ambulatory status. A CT pelvis was done in the hospital to exclude pelvic compressive phenomenon and nothing was seen, thankfully. Duplex of lower extremities negative.-Primary team has made referral to the lymphedema clinic-Ongoing efforts at elevation. It is my understanding that compression has not proven terribly feasible-Check electrolytes next week given edema/diuretic Related to Lymphedema due to venous insufficiency See lymphedema Related to Venou s insufficiency Significant debility in the context of worsening lower extremity edema, morbid obesity. She has improved with rehab and modest weight loss. She is still somewhat marginal but appears stable to return home and continue efforts at improving lymphedema and hopefully ongoing weight loss-Return home today-Outpatient rehab per the [facility] team Related to Debility BMI has improved mar ginally with roughly a 10 pound weight loss. She has multiple comorbidities attributable to her morbid obesity. There is daytime fatigability which contextually is KELSEY/hypoventilation until proven otherwise-Await sleep study-Defer to primary team regarding bariatric surgery Related to Morbid (severe) obesity with alveolar hypoventilation 65.5 Related to Body mass index (BMI) of 60.0 to 69.9 in adult .Patient had worseni ng function during her hospitalization leading to halfway facility admission. She has worked with rehab and strength has improved significantly. There remains concern about her ability to function in the assisted living particular without recliner.-Ongoing rehab-Ongoing discourse with rehab team at [facility] regarding her readiness to discharge-She may ultimately moved to another assisted living with better layout for her room Related to Debility Patient with quite s ignificant lymphedema. She often has stasis dermatitis versus cellulitis. Overall this has improved appreciably with more elevation while in rehab. She also has had wrapping at times.-Lymphedema clinic referral pending-No change in diuretic- Related to Lymphedema due to venous insufficiency Patient with quite s ignificant lymphedema. She often has stasis dermatitis versus cellulitis. Overall this has improved appreciably with more elevation while in rehab. She also has had wrapping at times.-Lymphedema clinic referral pending-No change in diuretic- Related to Venous insufficiency (chronic) (peripheral) H&H stable. I will c heck ferritin and Iron studies to reevaluate the need for iron supplement Related to Vaginal bleeding Increased morning la thargic and tiredness. She was off trazodone before last hospitalization, however, the record was missed and trazodone was restarte. She is on it BID, will taper it down and discontinue while monitoring for symptoms rebound. Related to Generalized anxiety disorder lab 03/05/2022 GFR 49 , stable. Continue BP control, encourage adequate hydration and avoid nephrotoxins and monitor Related to Stage 3a chronic kidney disease In light lethargic a nd tiredness, Trazodone to be tapered and discontinued.-Check TSH w reflex to T4 Related to Hypothyroidism, unspecified type Clinically stable. H ad on compression wrap today. No concerning complaints. Will continue diuretics, BP control and monitor Related to Heart failure with preserved ejection fraction, unspecified HF chronicity BP controlled today. However, she continues to complain of dizziness when changing position abruptly. Perhaps orthostatic, will monitor. Given Jo Ann c/o of being lethargic, trazpdone will be taper and discontinue and BP will be evaluated for medication change if applicable.-Check orthostatic -continue current regimen and monitor Related to Hypertensive heart and chronic kidney disease with heart failure and stage 1 through stage 4 chronic kidney disease, or unspecified chronic kidney disease Anemia at least pred ominantly related to [facility] bleeding. She is on iron now.-Continue same-[facility] follow-up on stable Related to Normocytic anemia Her blood pressure i s very variable. Obesity and sleep apnea probably drive a fair amount of this. Of note she is on low-dose amlodipine for her hypertension and I do wonder if this is all contributes to her lower extremity edema.-We will discuss with primary care provider-Consider stopping this and transitioning beta-paula to carvedilol for better BP control Related to Hypertensive heart and chronic kidney disease with heart failure and stage 1 through stage 4 chronic kidney disease, or unspecified chronic kidney disease GFR historically in the range of high 50s-60. Dominant issue is morbid obesity and hypertension--Control hypertension-Avoid nephrotoxic medicationsPatient when needed, adjust medications for EGFR of 60 Related to Stage 3a chronic kidney disease Most recent echocard iogram does not show dramatic change. EF is preserved, seemingly on both left and right side. Diastolic function was indeterminate.-Continue torsemide-Refused daily weights, will do weekly-Control HTN Related to Chronic heart failure with preserved ejection fraction BMI nearly 70. Hyper tension, significant venous stasis/lymphedema. She has daytime fatigability which contextually is KELSEY/hypoventilation until proven otherwise-Agreeable to a sleep study-Apparently was scheduled to see bariatric surgeon, will defer to primary provider with regard to this follow-up Related to Morbid (severe) obesity with alveolar hypoventilation Based upon most rece nt weight and existing height her BMI is currently 69.7 Related to Body mass index (BMI) of 60.0 to 69.9 in adult Patient with lymphed lynda/venous insufficiency. At the moment, she does not have skin breakdown. She did have recent cystic dermatitis, appears to be better after a course of topical corticosteroids-Trial Gregoria wraps however obviously this is only can be accomplished while in the senior living-No change in diuretic-Referral to lymphedema clinic at [place] Related to Venous insufficiency Appears euvolemic, e darren isn't related to cardiac status. Continue BP control and diuretic. Will continue to monitor Related to Heart failure with preserved ejection fraction, unspecified HF chronicity Improved, H&H 10.3/3 0.9. Will continue to monitor Related to Normocytic anemia Uncontrolled, Spoke to nursing staff about compression garment fitting, nurse to put in order to have fitting done. -continue elevation and compression garment when available-continue steroid topical for 5 days and discontinue-High protein diet Related to Venous insufficiency Lab done 02/26/2022, s hows GFR >60. improved. Albumin is low, May benefit from a high protein diet which may help with fluid shifting and help reduce edema. -f/u with SNF and [facility] dietitian for a high protein diet-continue to avoid nephrotoxin and encourage adequate hydration Related to Stage 3a chronic kidney disease Stable, continue cur rent regimen and monitor Related to Hypertensive heart and chronic kidney disease with heart failure and stage 1 through stage 4 chronic kidney disease, or unspecified chronic kidney disease stable with current inhalers. Had to get neb on admission to the SNF due to lung intermittent constriction. Will continue current pulm , inhalers and monitor Related to Uncomplicated asthma, unspecified asthma severity, unspecified whether persistent 02/23/2022, GFR 53, st able, continue BP control, avoid nephrotoxin and encourage adequate hydration. Will continue to monitor.-BMP on admission to SNF Related to Stage 3a chronic kidney disease Appears euvolemic, e darren isn't related to cardiac status. Continue BP control and diuretic. Will continue to monitor Related to Heart failure with preserved ejection fraction, unspecified HF chronicity Controlled, continue current regimen and monitor Related to Hypertensive heart and chronic kidney disease with heart failure and stage 1 through stage 4 chronic kidney disease, or unspecified chronic kidney disease Ongoing for 10 month s. she was scheduled for a D&C which was canceled due to irregular heart beat. -F/u with [facility] for rescheduling -Anemia 2nd to bleed-ferrous sulfate started. May be discontinue when bleed is resolved-Monitor H&H Related to Vaginal bleeding Jo Ann with chronic e darren and skin discoloration. she was treated multiple times for b/l cellulitis with no improvement. she was admitted to [facility] 02/20 for worsening edema and it was determined that lymphedema is more likely vs cellulitis. Compression garment and lymphedema clinic recommended.-F/u with SNF for compression stocking and Jo Ann compliance-Refer to Lymphedema clinic -continue topical steroids for 6 days and discontinue-Continue elevation when not ambulating and ambulation as tolerated-continue diuretics Related to Lymphedema due to venous insufficiency DVT r/o. No pain or discomfort. Continue elevation and monitor Related to Swelling of upper extremity Ongoing, under breas t, abd fold and b/l groin, continue antifungal cream and monitor. She prefers the cream than the powder. Related to Fungal rash of trunk could be secondary t o chronic vaginal bleeding. 02/23/2022 H&H 9.7/29.9. Clinically stable.-continue ferrous sulfate 325mg every other day. -Continue to monitor H&H Related to Normocytic anemia Likely secondary to chronic edema. Mostly burning to planter surface. Since the start of Gabapentin, Jo Ann endorses improvement.-continue Gabapentin BID-continue edema treatment Related to Neuropathic pain of both feet Jo Ann with chronic e darren and skin discoloration. she was treated multiple times for b/l cellulitis with no improvement. she was admitted to [facility] 02/20 for worsening edema and it was determined that lymphedema is more likely vs cellulitis. Compression garment and lymphedema clinic recommended.-F/u with SNF for compression stocking and Jo Ann compliance-Refer to Lymphedema clinic -continue topical steroids for 6 days and discontinue-Continue elevation when not ambulating and ambulation as tolerated--continue diuretics Related to Venous insufficiency - she was scheduled for D&C on 05/03/21 but was not completed due to bigeminy on telemetry- now she wants to f/u on this for now, still no reporting of vaginal bleeding - she is somewhat fixated on getting this issue resolved Related to History of postmenopausal bleeding - 01/2022 labs showin g polycythemia - H&H elevated, RBC elevated. She also likely has untreated KELSEY, does not wear O2, obesity, asthma.- incidentally she was in the hospital and no polycythemia noted. -will recheck labs periodically. Can add Jak2, UA, serum epo Related to Polycythemia - reports has been c hronic, states has seen ortho in past who recommended surgery, may have some trigger finger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
[2024-09-21 19:30] LABS: Amphetamine Screen Urine Not Detected (Not Detect); Appearance Urine Turbid; Barbiturates, Urine Not Detected (Not Detect); Benzodiazepines Screen Urine Not Detected (Not Detect); Buprenorphine Scr Not Detected (Not Detect); Cannabinoid Screen Urine Not Detected (Not Detect); Cocaine Screen Urine Not Detected (Not Detect); Color Urine Yellow; Fentanyl, urine Not Detected (Not Detect); Glucose Urine UA Negative (Negative); Leukocyte Esterase Urine Large (3+) (Negative); Methadone Screen, Urine Not Detected (Not Detect); Nitrite Urine Negative (Negative); Opiate Screen Urine Not Detected (Not Detect); Oxycodone Screen Urine Not Detected (Not Detect); PH 6.5 (5.0-9.0); Phencyclidine Screen Urine Not Detected (Not Detect); Specific Gravity - Urine <= 1.005 (1.005-1.025); UMIC TRIGGER UACC YES; Urine Blood Small (1+) (Negative); Urine Ketones Negative (Negative); Urine Protein Negative (Neg-Trace)
[2024-09-21 19:36] LABS: Bacteria Urine 4+ (None Seen); Hyaline Casts Urine 0-2 /LPF (0-2); RBC Urine 0-2 /HPF (0-2); Squamous Epithelial Cell Urine 0-2 /HPF (0-2); UACC Culture Trigger YES; WBC Urine >50 /HPF (0-5)
[2024-09-21] MEDS: Sennosides 8.6 MG TABLET PO (21:52)
[2024-09-21 21:53] VITALS: BP 177/82; PULSE 83
[2024-09-21] MEDS: Metoprolol Tartrate 25 MG TABLET PO (21:53)
[2024-09-21] MEDS: QUEtiapine Fumarate 300 MG TABLET PO (21:53)
[2024-09-21] MEDS: cefuroxime axetiL 500 MG TABLET PO (21:53)
[2024-09-21] MEDS: Atorvastatin Calcium 20 MG TABLET PO (21:53)
--- NOTE | 2024-09-21 22:19 | MHC.CARE ---
Pt was assessed by the CARE team, Pt will be referred to Psych consult in order for them to assess and weigh in on disposition recommendations.
--- NOTE | 2024-09-21 22:30 | PC.NURSE ---
pt medicated according to stephanie pt refused pm dose of trazodone pt reports to this rn would like to leave ama this rn attempted to educated pt that pt is unable to do that requested to speak with hot metal charger hot metal charger attempted to to educated pt pt asked for doctor attempted multiple times to go to bedside pt would not get off phone call to speak to
[2024-09-22] VITALS (7 sets, daily range): BP systolic 121–145; BP diastolic 47–79; PULSE 68–79; RESP 16–20; TEMP 36.6–37.2; O2SAT 94–96
--- NOTE | 2024-09-22 02:59 | PC.NURSE ---
this rn and ed techs provided jeffy care after pt was incontinent of urine. pt able to rolled from side to side to assist in linen change pt replaced to melendez bed assignment pt provided with blindfold and warm blankets
[2024-09-22] MEDS: Acetaminophen 325 MG TABLET 650 MG PO (05:34)
[2024-09-22] MEDS: Omeprazole 20 MG CAPSULE.DR PO (06:33)
[2024-09-22] MEDS: Levothyroxine Sodium 75 MCG TABLET PO (06:33)
[2024-09-22] MEDS: Benzonatate 100 MG CAPSULE PO (07:07)
[2024-09-22] MEDS: amLODIPine Besylate 2.5 MG TABLET PO (10:35)
[2024-09-22] MEDS: Sennosides 8.6 MG TABLET PO (10:35)
[2024-09-22] MEDS: Torsemide 20 MG TABLET PO (10:35)
[2024-09-22] MEDS: Losartan Potassium 25 MG TABLET PO (10:36)
[2024-09-22] MEDS: Metoprolol Tartrate 25 MG TABLET PO (10:36)
[2024-09-22] MEDS: cefuroxime axetiL 500 MG TABLET PO (10:36)
--- NOTE | 2024-09-22 10:44 | PC.NURSE ---
pt is alert and oriented, skin pwd, respirations even and unlabored, ls clear, pt took her medications with out any problem, pt denies si/hi calm and cooperative
[2024-09-22] MEDS: Rivaroxaban 15 MG TABLET PO (11:03)
[2024-09-22] MEDS: Fluticasone/Vilanterol 200/25 BLST.W.DEV 1 PUFF INHALE (12:07)
--- NOTE | 2024-09-22 13:17 | PC.NURSE ---
pt incontinent of urine x2, pt cleaned up and changed into clean hospital attire
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
--- NOTE | 2024-09-22 14:13 | PC.NURSE ---
rosio from psychiatry is speaking with the patient
--- NOTE | 2024-09-22 16:04 | PC.NURSE ---
report given to nurse [facility]
== END 2024-09-22 19:01 ==
PROVIDERS: Student in an Organized Health Care Education/Training Program; Emergency Provider Emergency Medicine; PCP Internal Medicine
DX: F31.9 Bipolar disorder, unspecified (principal); N39.0 Urinary tract infection, site not specified; R05.9 Cough, unspecified; J40 Bronchitis, not specified as acute or chronic; N18.9 Chronic kidney disease, unspecified; I50.9 Heart failure, unspecified; F60.3 Borderline personality disorder; I48.91 Unspecified atrial fibrillation; I27.20 Pulmonary hypertension, unspecified; Z91.148 Patient's other noncompliance with medication regimen for other reason; Z11.52 Encounter for screening for COVID-19
CPT/HCPCS: 0241U; 36415; 71046; 80048; 80076; 80143; 80179; 80307; 81001; 83690; 83735; 83880; 85025; 87086; 87088; 87186; 94640; 99285; S9485

== ENCOUNTER → 2024-09-21 15:58 | Outpatient (BNV) | payer MEDICARE, MEDICAID, SELFPAY | PROVIDERS: Emergency Provider Student in an Organized Health Care Education/Training Program; PCP Internal Medicine; Visit Provider Radiology Diagnostic Radiology | DX: R05.9 Cough, unspecified (principal) | CPT/HCPCS: 71046 ==

== ENCOUNTER → 2024-09-21 16:05 | Outpatient (BNV) | payer MEDICARE, MEDICAID, SELFPAY | PROVIDERS: Emergency Provider Emergency Medicine; PCP Internal Medicine; Visit Provider Social Worker | DX: F31.9 Bipolar disorder, unspecified (principal) | CPT/HCPCS: 99285 ==